=== PATIENT | male | born 1940 | race Caucasian/White ===

== ENCOUNTER → 2017-11-24 12:28 | Outpatient (CLI) | payer MEDICARE, BC, SELFPAY ==
--- NOTE | 2017-11-24 12:39 | RAD_ITS ---
STUDY: X-RAY CHEST REASON FOR EXAM: Male, 77 years old. Rales in the left lung base, dyspnea. History of CHF. TECHNIQUE: PA and lateral chest COMPARISON: 08/22/2015 FINDINGS: Left pectoral pacer/AICD device with 4 wire leads, stable. Median sternotomy and CABG. Epicardial pacer wires. Hyperlucent pulmonary features consistent with underlying COPD. No acute superimposed edema or focal infiltrate. No effusion or pneumothorax. Mild cardiomegaly. Normal mediastinal silhouette, nabil and pleural margins. No acute osseous or upper abdominal process. RAD/Chest PA and Lateral IMPRESSION: There is no evidence of acute CHF or acute pneumonia. COPD/emphysema. Chronic cardiac disease. Electronically Signed: Colby Barboza, at 13:26 EDT Tel , Service support ,
== END ==
PROVIDERS: Family Provider Family Medicine; PCP Family Medicine; Visit Provider Internal Medicine Pulmonary Disease
DX: J43.9 Emphysema, unspecified (principal); R09.89 Other specified symptoms and signs involving the circulatory and respiratory systems
CPT/HCPCS: 71046

== ENCOUNTER 2020-03-30 06:02 | Day surgery (SDC) | payer MEDICARE, BC, SELFPAY ==
[2019-02-04 13:37] VITALS: BMI 31.9
[2020-03-27 09:34] LABS: Mean Corp Hgb Conc 31.6 g/dL (32-36); Mean Corpuscular Hgb 29.4 pg (27.0-32.0); Mean Corpuscular Volume 93.1 fL (80-94); Platelet Count 220 K/mm3 (150-450); RBC Distribution Width CV 14.1 % (11.6-14.6); RBC Distribution Width SD 47.7 fl (35.1-43.9); Red Blood Count 4.08 M/mm3 (4.6-6.2); White Blood Count 7.3 K/mm3 (4.4-11.0)
[2020-03-27 09:49] LABS: Partial Thromboplast Time 36.8 Seconds (24.1-36.2)
[2020-03-27 09:53] LABS: Hemoglobin A1c 6.3 % (3.8-5.6)
[2020-03-27 10:12] LABS: AST(SGOT) 24 U/L (15-37); Alanine Aminotransfer ALT/SGPT 33 U/L (16-61); Albumin, Serum 3.6 g/dL (3.2-5.0); Alkaline Phosphatase 69 U/L (45-117); Anion Gap 2 (5-15); BUN 26 mg/dL (7-18); BUN/Creat Ratio 21.7 RATIO (10-20); Bilirubin, Direct 0.08 mg/dL (0.00-0.30); Calcium,Total 8.8 mg/dL (8.5-10.1); Chloride 107 mmol/L (98-107); EST Glomerular Filtration Rate 62 mL/min (>60); Est Glom Filt Rate - Afr Amer 75 mL/min (>60); Globulin 3.1 g/dL (2.2-4.2); Glucose 144 mg/dL (74-106); Potassium 3.7 mmol/L (3.5-5.1); Protein, Total 6.7 g/dL (6.4-8.2); Sodium Level 140 mmol/L (136-145); Thyroid Stim Hormone (TSH) 5.37 uIU/mL (0.358-3.74)
--- NOTE | 2020-03-27 11:35 | EKG12_ITS ---
Test Reason : PREOP Blood Pressure : / mmHG Vent. Rate : 070 BPM Atrial Rate : 070 BPM P-R Int : 096 ms QRS Dur : 160 ms QT Int : 476 ms P-R-T Axes : 071 -78 101 degrees QTc Int : 514 ms Atrial-sensed ventricular-paced rhythm Abnormal ECG When compared with ECG of 30-AUG-2015 05:49, Premature supraventricular complexes are no longer Present Confirmed by CLIFF FROST, DIO ([id number]), map editor MURPHY HELTON ([id number]) on 03/30/2020 11:28:57 AM Referred By: Marlon Todd Confirmed By:DIO CORONADO MD
[2020-03-30 06:26] LABS: Prothrombin Time Fingerstick 20.2 SEC (11.9-14.4)
[2020-03-30 06:55] LABS: Bedside Glucose 116 mg/dL (70-110)
[2020-03-30 07:07] VITALS: BP 115/55; PULSE 58; RESP 16; TEMP 36.6; O2SAT 95; BMI 31.8
[2020-03-30 07:13] LABS: International Normalized Ratio 1.7; Prothrombin Time (Protime)PT. 19.3 SECONDS (11.7-14.9)
[2020-03-30] MEDS: Lactated Ringers 1,000 ML 100 ML IV (07:18)
--- NOTE | 2020-03-30 08:19 | PCM.HP.STD ---
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 History of Present Illness Date of Admission: 03/30/20 Chief Complaint: Bladder cancer recurrence The patient is a 80 year old male who on routine cystoscopy was found to have a recurrence of bladder cancer in the trigone area today presents for transurethral resection of this tumor and cauterization of the base Past Medical History Past Medical History (Chronic Problems): Chronic Problems (Last Reviewed 02/04/19 @ 13:36 by Teresa Myles) Ischemic cardiomyopathy (Chronic) EF 20% Medical History: Medical History (Last Reviewed 02/04/19 @ 13:36 by Teresa Myles) Screening for intestinal cancer (Acute) Z12.10 Hx of bladder cancer (Acute) Z85.51 Nausea (Acute) R11.0 Sleep apnea (Acute) G47.30 SOB (shortness of breath) (Acute) R06.02 Heart attack (Acute) I21.9 Heart disease (Acute) I51.9 Thyroid disease (Acute) E07.9 Fatigue (Acute) R53.83 Ventricular tachycardia (Acute) I47.2 Hyperlipemia (Acute) E78.5 Osteoarthritis of left knee (Acute) M17.9 TKA LEFT KNEE CAD (coronary artery disease) (Acute) I25.10 Type 2 diabetes mellitus (Acute) E11.9 Ischemic cardiomyopathy (Chronic) I25.5 EF 20% Allergies celecoxib [From Celebrex] Allergy (Verified 03/30/20 07:04) Hives Sulfa (Sulfonamide Antibiotics) Allergy (Verified 03/30/20 07:04) Hives Home Medications: Ambulatory Orders Medication Instructions Recorded Amlodipine [Norvasc] 10 mg PO DAILY 03/31/14 Aspirin [Aspirin, Baby] 81 mg PO DAILY@0800 03/31/14 metFORMIN HCl [Glucophage] 1,000 mg PO BIDCM 03/31/14 furosemide 40 mg tablet 20 mg PO DAILY tab 02/04/19 levothyroxine 112 mcg tablet 112 mcg PO DAILY 02/04/19 Amiodarone HCl [Cordarone] 200 mg PO 1700 03/22/20 Areds 2 1 tab PO BID 03/22/20 Atorvastatin Calcium [Lipitor] 40 mg PO QHS 11/19/20 Finasteride 5 mg PO DAILY 03/22/20 Losartan Potassium [Cozaar] 100 mg PO 1700 03/22/20 Metoprolol Tartrate [Lopressor 50 mg PO DAILY 03/22/20 (beta donal)] Warfarin [Coumadin (PBKC)] 2.5 mg PO TUTHSA 03/22/20 Warfarin [Coumadin] 5 mg PO SUMOWEFR 03/22/20 Surgical History: Surgical History (Last Reviewed 02/04/19 @ 13:36 by Teresa Myles) Hx of colonoscopy (Acute) Z98.890 History of total left knee replacement (TKR) (Acute) Z96.652 Hx of mitral valve replacement (Acute) Z95.2 Hx of prostate biopsy (Acute) Z98.890 History of bladder surgery (Acute) Z98.890 History of bilateral carpal tunnel release (Acute) Z98.890 History of open heart surgery (Acute) Z98.890 Hx of cardiac cath (Acute) Z98.890 multiple History of cardiac defibrillator placement (Acute) Z95.810 Hx of cardiac pacemaker (Acute) Z95.0 X2 Surgical History: no surgical history Smoking Status: Former smoker Review of Systems Constitutional: Denies: Chills, Fever, Weight Change HEENT: Denies: Head Aches, Sinus Congestion, Sinus Drainage Cardiovascular: Denies: Chest Pain, Palpitations Respiratory: Denies: Cough, Shortness of breath at rest, Sputum production Gastrointestinal: Denies: Abdominal Pain, Nausea, Vomiting Genitourinary: Denies: Dysuria Musculoskeletal: Denies: Joint Pain, Joint Tenderness Skin: Denies: Rash, Wounds Neurological: Denies: Numbness, Tingling, Focal weakness Psychiatric: Denies: Anxiety, Depression, Homicidal Ideations, Suicidal Ideations Hematologic/ Lymphatic: Denies: Easy Bruising, Easy Bleeding VTE Information - Inpt Only VTE Present on Admission: No - Physical Exam Vitals/I&O's: Vital Signs Temp Pulse Resp BP Pulse Ox 97.9 F 58 L 16 115/55 L 95 03/30/20 07:07 03/30/20 07:07 03/30/20 07:07 03/30/20 07:07 03/30/20 07:07 Oxygen Delivery Method Room Air Weight: 89.6 kg Body Mass Index (BMI) 31.8 Finger Stick Blood Glucose 109 General: Alert, Oriented x3, Cooperative HEENT: Atraumatic, PERRLA, EOMI, Normocephalic Neck: Supple, No JVD, Negative Carotid Bruits Lungs: Clear to auscultation, Normal air movement Cardiovascular: Regular rate, No murmurs Abdomen: Bowel Sounds Present, Soft, Non Tender Extremities: No edema, Capillary Refill Less than 3 Seconds Skin: No rashes, No breakdown Musculoskeletal: No Tenderness to Palpation of Joints or Extremities Neurological: Cranial nerves II-XII grossly intact Psych/Mental Status: Normal Affect, Appropriate Microbiology Past 72 Hours 03/27/20 09:22 Interface Orders SARS-CoV-2 Antigen (Rapid) - Final Laboratory Results 03/30/20 06:22: POC PT 20.2 H, INR 1.70 03/30/20 06:49: POC Glucose 116 H 03/30/20 06:54: PT 19.3 H, INR 1.7 Current Medications Cefazolin Sodium 2 gm/ Sodium (Chloride) 110 mls @ 150 mls/hr IV PREOP ONE Stop: 03/30/20 09:08 Mitomycin 40 mg/ Sodium (Chloride 40 ml/ N/A) 40 mls @ 2,400 mls/hr INSTILLAT X1 ONE Stop: 03/30/20 08:26 Lactated Ringer's () 1,000 mls @ 100 mls/hr IV .Q10H JERSON Last Admin: 03/30/20 07:18 Dose: 100 mls/hr Documented by: Assessment/Plan All Active Problems (Last Reviewed 02/04/19 @ 13:36 by Teresa Myles) Bladder cancer (Acute) Screening for intestinal cancer (Acute) Hx of colonoscopy (Acute) History of total left knee replacement (TKR) (Acute) Hx of mitral valve replacement (Acute) Hx of prostate biopsy (Acute) History of bladder surgery (Acute) Hx of bladder cancer (Acute) History of bilateral carpal tunnel release (Acute) History of open heart surgery (Acute) Nausea (Acute) Hx of cardiac cath (Acute) Sleep apnea (Acute) SOB (shortness of breath) (Acute) Heart attack (Acute) Heart disease (Acute) History of cardiac defibrillator placement (Acute) Hx of cardiac pacemaker (Acute) Thyroid disease (Acute) Fatigue (Acute) Ventricular tachycardia (Acute) Hyperlipemia (Acute) Osteoarthritis of left knee (Acute) CAD (coronary artery disease) (Acute) Type 2 diabetes mellitus (Acute) Plan to proceed with transurethral resection of bladder tumor.
[2020-03-30] MEDS: Cefazolin 2 GM in 0.9% Normal Saline 100 ML IV (08:22)
--- NOTE | 2020-03-30 08:23 | DCINST_ITS ---
Discharge Diet: Light diet - advance as tolerated Discharge Activity: Return to Normal Activity Instructions: Treating Bladder Cancer: TUR (Transurethral Resection) Allergies/Adverse Reactions: Allergies celecoxib [From Celebrex] Allergy (Verified 03/30/20 07:04) Hives Sulfa (Sulfonamide Antibiotics) Allergy (Verified 03/30/20 07:04) Hives Medications to take at Discharge Amlodipine [Norvasc] 10 mg PO DAILY 03/31/14 Aspirin [Aspirin, Baby] 81 mg PO DAILY@0800 03/31/14 metFORMIN HCl [Glucophage] 1,000 mg PO BIDCM 03/31/14 furosemide 40 mg tablet 20 mg PO DAILY tab 02/04/19 levothyroxine 112 mcg tablet 112 mcg PO DAILY 02/04/19 Amiodarone HCl [Cordarone] 200 mg PO 1700 03/22/20 Areds 2 1 tab PO BID 03/22/20 Atorvastatin Calcium [Lipitor] 40 mg PO QHS 03/22/20 Finasteride 5 mg PO DAILY 03/22/20 Losartan Potassium [Cozaar] 100 mg PO 1700 03/22/20 Metoprolol Tartrate [Lopressor (beta donal)] 50 mg PO DAILY 03/22/20 Warfarin [Coumadin (PBKC)] 2.5 mg PO TUTHSA 03/22/20 Warfarin [Coumadin] 5 mg PO SUMOWEFR 03/22/20 Primary Care Physician: Jordan Monroy MD [Primary Care Provider] - Test Results: Test results from this visit will be discussed in further detail at your follow- up appointment, if applicable. Please Follow Up With: Marlon Todd MD When: in 2 weeks, please call to make an appointment.
--- NOTE | 2020-03-30 08:25 | BLB_PTH ---
PATIENT: JLUIS ROUSE LOC: [facility] [place] U#:[id number] AGE/SX: 80/M ROOM: RE03/30/[address]: Dr. Marlon Todd MD : 1940 BED: DIS: 03/30/2020 SPEC #: [id number] RECD: 03/30/20 11:14 STATUS: YAMILET REGretchen #: [id number] EMEKA: 03/30/20 08:[address]: Marlon Todd DEPT: SURGICAL PATHOLOGY RECD BY: Jessica Dang ENTERED: 03/30/20 11:41 SP TYPE: TURB OTHR DR: Dr. Jrodan Monroy MD Tissues: Urinary bladder, NOS Procedures: Surgery Specimen Level V HEADER OPERATION: Cysto, TUR bladder, Olymp[employer] PRE-OP DIAGNOSIS: Bladder cancer TISSUE SUBMITTED: Bladder tumor MICROSCOPIC DIAGNOSIS Bladder tumor, TUR: Papillary urothelial carcinoma. See cancer summary in the comment section. SJ:maciej 04/02/20 COMMENT BLADDER CANCER (TUR) SUMMARY Procedure: Transurethral resection of bladder (TURBT) Histologic type: Urothelial (transitional cell) carcinoma Associated epithelial lesions: None identified Histologic grade: 1-2/3 Tumor configuration: Papillary Muscularis propria invasion presence: Muscularis propria (detrusor muscle) is not present. Lymphvascular invasion: not identified. Tumor extension: noninvasive papillary carcinoma. Additional pathologic findings: Mild chronic inflammation. The above summary is in compliance with [employer] [place] [employer] (CAP) Cancer Protocols Checklist and [place] [employer] Committee on Cancer (AJCC), Staging Manual, 8th Ed. Please make reference to previous specimen ([id number]) bladder tumor, TUR and base of bladder tumor with diagnosis of papillary urothelial carcinoma. MICROSCOPIC DESCRIPTION Slides are reviewed. GROSS DESCRIPTION Received in fixative is one container labeled with the patient's name and designated bladder tumor. The specimen consists of two irregular fragments of odell soft tissue that in aggregate measure 0.4 x 0.2 x 0.1 cm. The specimen is totally submitted in one cassette. / SJ:maciej 03/30/20 TC:0 CPT: 43318
[2020-03-30 08:55] VITALS: BP 115/55; BP 116/55; PULSE 61; RESP 14; TEMP 36.6; O2SAT 92
[2020-03-30 09:00] VITALS: BP 107/55; BP 115/55; PULSE 60; RESP 14; O2SAT 93
[2020-03-30 09:15] VITALS: BP 115/55; BP 118/60; PULSE 60; RESP 16; O2SAT 95
--- NOTE | 2020-03-30 09:26 | PCM.OPRPT ---
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 The penis and testicles were prepped and draped usual sterile fashion. I went into the bladder with a 24 Hungarian noncontinuous flow resectoscope and in the trigone of the bladder the 2 cm tumor this was resected and then cauterized both the left and right ureter orifice were uninvolved. I then drained the bladder put a catheter in and put 40 mg of mitomycin-C into the bladder. Type of Anesthesia:: General - Admit VTE Documentation VTE Present on Admission: No VTE Mechan Device Prophylaxis: SCD's
[2020-03-30 09:28] VITALS: BP 115/55; BP 126/52; PULSE 60; RESP 16; TEMP 36.3; O2SAT 98
[2020-03-30 09:40] LABS: Bedside Glucose 116 mg/dL (70-110)
[2020-03-30 10:06] VITALS: BP 115/55
== END 2020-03-30 10:15 | disposition home or self-care (01) ==
LOC: SDC 06:03 → AC 06:04
PROVIDERS: Anesthesiology; PCP Family Medicine; Referring Provider Urology; Visit Provider Urology
PROC: 0TBB8ZZ Excision of Bladder, Via Natural or Artificial Opening Endoscopic (ICD-10-PCS; CPT 52234; principal; 2020-03-30 08:15)
DX: C67.0 Malignant neoplasm of trigone of bladder (principal); E07.9 Disorder of thyroid, unspecified; E11.9 Type 2 diabetes mellitus without complications; E78.5 Hyperlipidemia, unspecified; I25.10 Atherosclerotic heart disease of native coronary artery without angina pectoris; I50.9 Heart failure, unspecified; G47.30 Sleep apnea, unspecified; I25.2 Old myocardial infarction; I25.5 Ischemic cardiomyopathy; Z79.01 Long term (current) use of anticoagulants; Z79.82 Long term (current) use of aspirin; Z79.84 Long term (current) use of oral hypoglycemic drugs; Z85.51 Personal history of malignant neoplasm of bladder; Z87.891 Personal history of nicotine dependence; Z95.0 Presence of cardiac pacemaker; Z95.2 Presence of prosthetic heart valve; Z96.652 Presence of left artificial knee joint; Z20.828 Contact with and (suspected) exposure to other viral communicable diseases; Z79.899 Other long term (current) drug therapy
CPT/HCPCS: 52234; 36415; 36416; 80048; 80076; 82962; 83036; 84443; 85027; 85610; 85730; 87426; 88307; 93005; C9803; J7120; J2405; J3490; J9280

== ENCOUNTER → 2020-11-09 08:06 | Outpatient (CLI) | payer MEDICARE, BC, SELFPAY ==
--- NOTE | 2020-11-09 08:14 | CT_ITS ---
STUDY: CT CHEST WITHOUT CONTRAST REASON FOR EXAM: Male, 80 years old. DYSPNEA / HX COVID 19 RADIATION DOSAGE (If Supplied By Facility): CTDIvol = ( 16.75 ) mGy, DLP = ( 604.43 ) mGycm TECHNIQUE: Transaxial imaging was performed without the administration of intravenous contrast material. Multiplanar coronal and sagittal images were reformatted. Individualized dose optimization techniques were used for this CT. COMPARISON: None. FINDINGS: There is a 1.5 mm noncalcified nodule in the posterior superior aspect of the right upper lobe. Minimal increased linear markings in the lingular segment of the left upper lobe as well as the anterior aspect of the right middle lobe suggestive of scarring. Mild degree of scarring and mild bronchiectasis at the lung bases. There is no demonstrated pleural abnormality. Sternal cerclage wires and vascular clips are present from a prior sternotomy and coronary artery bypass graft procedure (CABG). A left-sided dual-chamber pacemaker is seen. There are multiple small lymph nodes within the mediastinum, which are normal in size and morphology most compatible with reactive lymph hyperplasia. Normal hilar regions. Normal unenhanced pulmonary arteries. Normal aorta arch and descending thoracic aorta. There is demineralization of the thoracic spine. There is no demonstrated abnormality of the visualized upper abdomen. CT/Chest without Contrast IMPRESSION: 1.5 mm noncalcified nodule in the posterior superior aspect of the right upper lobe. Findings suggest mild degree of scarring in the lingular segment of the left upper lobe as well as the right middle lobe and both lower lobes with mild bronchiectasis. Electronically Signed: Jose Manuel Gonzalez MD at 8:54 EDT , Service support ,
--- NOTE | 2020-11-09 08:23 | VDLE_ITS ---
Reason For Study: EDEMA/DYSPNEA RIGHT LEFT GSV is normal. GSV is absent due to harvest for CABG. CFV is compressible, spontaneous, phasic, CFV is compressible, spontaneous, phasic, competent and demonstrates normal competent, and demonstrates normal augmentation. augmentation. FV is compressible, spontaneous, phasic, FV is compressible, spontaneous, phasic, competent and demonstrates normal competent and demonstrates normal augmentation. augmentation. POP V is compressible, spontaneous, phasic, POP V is compressible, spontaneous, phasic, competent and demonstrates normal competent and demonstrates normal augmentation. augmentation. T/P Trunk is compressible. T/P Trunk is compressible. PTV is compressible. PTV is compressible. RT PerV is compressible. LT PerV is compressible. Procedure This is a venous duplex using B-mode, color flow and spectral Doppler. Exam performed in department. The exam was diagnostic. A preliminary report was called and/or faxed to Dr. Badillo @ 9:20 am @ [phone]. VL/Venous Duplex US - Royce Extrem Interpretation Summary Deep veins of the lower extremities are bilaterally patent and compressible seg mentally. There is no evidence of deep vein thrombosis on either side. Valvular competence appears in tact within the proximal deep venous systems bilaterally. The right great saphenous vein appear s patent and compressible segmentally. The left great saphenous vein is absent, having been previously harvested. Ordering Physician: Damian Badillo Referring Physician: Jordan Monroy Performed By: Sirisha Sinclair RVT, RDCS and Student
[2020-11-09 10:14] LABS: Erythrocyte Sedimentation Rate 17 mm/hr (0-20)
[2020-11-09 10:53] LABS: CRP < 2.90 mg/L (0.0-3.0)
[2020-11-09 10:54] LABS: BNP,B-Type NATRIURETIC PEPTIDE 343.7 pg/mL (0-100)
== END ==
PROVIDERS: PCP Family Medicine; Referring Provider Internal Medicine Pulmonary Disease; Visit Provider Internal Medicine Pulmonary Disease
DX: R09.89 Other specified symptoms and signs involving the circulatory and respiratory systems (principal); M79.89 Other specified soft tissue disorders; R06.00 Dyspnea, unspecified; Z86.16 Personal history of COVID-19
CPT/HCPCS: 36415; 71250; 83880; 85652; 86140; 93970

== ENCOUNTER → 2021-02-04 16:02 | Outpatient (CLI) | payer MEDICARE, BC, SELFPAY ==
--- NOTE | 2021-02-04 | CYSPIN_PTH ---
PATIENT: JLUIS ROUSE LOC: [facility] U#:[id number] AGE/SX: 85/M ROOM: RE02/04/[address]: Dr. Marlon Todd MD : 1940 BED: DIS: SPEC #: [id number] RECD: 02/05/21 09:54 STATUS: YAMILET WONGretchen #: [id number] EMEKA: 02/04/21 00:[address]: Marlon Todd DEPT: CYTOLOGY RECD BY: Dave Ford ENTERED: 02/05/21 09:55 SP TYPE: CYSPIN FL OTHR DR: Dr. Jordan Monroy MD Tissues: Urine Procedures: Pap Stain (control) Special Stain Group II Cytospin Fluid HEADER OPERATION: Not noted PRE-OP DIAGNOSIS: History of malignant neoplasm of bladder TISSUE SUBMITTED: Urine for cytology DIAGNOSIS CYTOLOGY Urine for cytology (cytospin): Negative for malignant cells. AM:maciej 02/06/2021 CYTOLOGY STUDY Slides are reviewed. CYTOLOGY GROSS Received is 25 ml of clear pale yellow fluid labeled with the patient's name and and designated per the requisition as urine. Submitted for cytology preparation. / maciej 02/05/2021 TC:5 CPT: 55994
[2021-02-04 16:20] LABS: Cytology, Body Fluid / CSF SEE PATHOLOGY REPORT
== END ==
PROVIDERS: PCP Family Medicine; Referring Provider Urology; Visit Provider Urology
DX: Z85.51 Personal history of malignant neoplasm of bladder (principal)
CPT/HCPCS: 88108; 88313

== ENCOUNTER → 2021-08-26 | Outpatient (CLI) | payer MEDICARE, BC, SELFPAY ==
--- NOTE | 2021-08-26 | CYSPIN_PTH ---
PATIENT: JLUIS ROUSE [facility]: [facility] U#:[id number] AGE/SX: 81/M ROOM: RE08/26/[address]: Dr. Marlon Todd MD : 1940 BED: DIS: 08/26/2021 SPEC #: [id number] RECD: 08/27/21 09:36 STATUS: YAMILET REGretchen #: [id number] EMEKA: 08/26/21 00:[address]: Marlon Todd DEPT: CYTOLOGY RECD BY: Dave Ford ENTERED: 08/27/21 09:36 SP TYPE: CYSPIN FL OTHR DR: Dr. Jordan Monroy MD Tissues: Urine Procedures: Pap Stain (control) Special Stain Group II Cytospin Fluid HEADER OPERATION: Not noted PRE-OP DIAGNOSIS: History of malignant neoplasm of bladder TISSUE SUBMITTED: Urine for cytology DIAGNOSIS CYTOLOGY Urine for cytology (cytospin): A few clusters of atypical urothelial cells noted. Acute inflammation See comment. FEI:maciej 08/27/2021 COMMENT Clinical correlation and appropriate follow up are necessary. Please make reference to previous specimen ([id number]) bladder tumor, TUR with diagnosis of ?papillary urothelial carcinoma.? CYTOLOGY STUDY Slides are reviewed. CYTOLOGY GROSS Received is 15 ml of yellow cloudy fluid labeled with the patient's name and and designated per the requisition as urine. Submitted for cytology preparation. / maciej 08/27/2021 TC:5 CPT: 75764
[2021-08-26 17:26] LABS: Cytology, Body Fluid / CSF SEE PATHOLOGY REPORT
== END | disposition home or self-care (01) ==
PROVIDERS: PCP Family Medicine; Referring Provider Urology; Visit Provider Urology
DX: Z85.51 Personal history of malignant neoplasm of bladder (principal)
CPT/HCPCS: 88108; 88313

== ENCOUNTER 2021-12-09 14:44 | Observation (INO) | payer MEDICARE, BC, SELFPAY ==
--- NOTE | 2021-11-19 12:15 | EKG12_ITS ---
Test Reason : PREOP Blood Pressure : / mmHG Vent. Rate : 062 BPM Atrial Rate : 227 BPM P-R Int : 000 ms QRS Dur : 138 ms QT Int : 456 ms P-R-T Axes : 000 253 120 degrees QTc Int : 462 ms Ventricular-paced rhythm Biventricular pacemaker detected Abnormal ECG Confirmed by PERLA FROST, LAZARO ([id number]), editor dictionary KEVIN REAL ([id number]) on 11/20/2021 9:51:14 AM Referred By: EVAN Confirmed By:LAZARO DUNCAN MD
[2021-11-19 12:59] LABS: Absolute Lymphocyte Count 1.25 X10^3/uL (0.83-4.51); Basophil# 0.02 X10^3/uL; Basophil% 0.2 % (0-1); Eosinophil# 0.25 X10^3/uL; Hemoglobin 10.6 g/dL (13.0-16.5); Lymphocyte # 1.25 X10^3/ul (0.83-4.51); Lymphocyte % 15.1 % (19-41); Mean Corp Hgb Conc 32.1 g/dL (32-36); Mean Corpuscular Hgb 28.5 pg (27.0-32.0); Mean Corpuscular Volume 88.7 fL (80-94); Monocyte# 0.77 X10^3/uL; Monocyte% 9.3 % (0-10); NRBC Flagged by Analyzer 0 % (0-5); Neutrophil # 5.97 X10^3/uL (2.7-7.7); Neutrophil % 71.9 % (47-70); Platelet Count 231 K/mm3 (150-450); RBC Distribution Width CV 14.9 % (11.6-14.6); RBC Distribution Width SD 48.5 fl (35.1-43.9); Red Blood Count 3.72 M/mm3 (4.6-6.2); White Blood Count 8.3 K/mm3 (4.4-11.0)
[2021-11-19 13:02] LABS: Partial Thromboplast Time 33.7 Seconds (24.1-36.2)
[2021-11-19 13:25] LABS: Albumin, Serum 3.5 g/dL (3.2-5.0); Anion Gap 6 (5-15); BUN 25 mg/dL (7-18); BUN/Creat Ratio 24.5 RATIO (10-20); Calcium,Total 9.1 mg/dL (8.5-10.1); Chloride 109 mmol/L (98-107); Creatinine, Serum 1.02 mg/dL (0.70-1.30); EST Glomerular Filtration Rate 75 mL/min (>60); Est Glom Filt Rate - Afr Amer 90 mL/min (>60); Glucose 116 mg/dL (74-106); Potassium 4.1 mmol/L (3.5-5.1); Sodium Level 142 mmol/L (136-145)
[2021-11-19 13:27] LABS: Hemoglobin A1c 6.5 % (3.8-5.6)
[2021-11-19 13:36] LABS: Magnesium 2.1 mg/dL (1.6-2.6); Thyroid Stim Hormone (TSH) 2.92 uIU/mL (0.358-3.74)
[2021-12-09] VITALS (18 sets, daily range): BP systolic 112–161; BP diastolic 46–66; PULSE 59–78; RESP 15–18; TEMP 36.2–36.7; O2SAT 92–100; BMI 30.9
[2021-12-09] MEDS: Lactated Ringers 1,000 ML 15 ML IV (08:15)
[2021-12-09] MEDS: Acetaminophen 500 MG Tablet 1000 MG PO ×3 (08:42→23:00)
[2021-12-09] MEDS: Gabapentin 600 MG Tablet PO (08:42)
[2021-12-09 10:01] LABS: Bedside Glucose 171 mg/dL (74-106)
[2021-12-09 10:02] LABS: International Normalized Ratio 1.1; Prothrombin Time (Protime)PT. 13.8 SECONDS (11.7-14.9)
[2021-12-09] MEDS: Cefazolin 2 GM in 0.9% Normal Saline 100 ML IV (10:06)
--- NOTE | 2021-12-09 10:15 | FEM_PTH ---
PATIENT: JLUIS ROUSE LOC: [facility] U#:[id number] AGE/SX: 81/M ROOM: IN313 RE12/09/[address]: Dr. Iker Renee DO : 1940 BED: 1 DIS: 12/10/2021 SPEC #: [id number] RECD: 12/09/21 12:57 STATUS: YAMILET CONWAY #: [id number] EMEKA: 12/09/21 10:[address]: Iker Renee DEPT: SURGICAL PATHOLOGY RECD BY: Jessica Dang ENTERED: 12/09/21 13:17 SP TYPE: FEM HEAD OTHR DR: Dr. Jordan Monroy MD Tissues: Femoral region, NOS Procedures: Decalcification bone/plaque Surgery Specimen Level IV HEADER OPERATION: ERAS, total hip replacement PRE-OP DIAGNOSIS: Unilateral primary osteoarthritis right hip TISSUE SUBMITTED: Femoral head MICROSCOPIC DIAGNOSIS Femoral head, total hip replacement/resection: Femoral head with degenerative osteoarthritic changes. FEI:maciej 12/12/2021 MICROSCOPIC DESCRIPTION Slides are reviewed. GROSS DESCRIPTION Received is one container labeled with the patient's name and designated femoral head. The specimen consists of a odell femoral head with portion of femoral neck. The femoral head measures 4.5 x 5 x 5 cm and the femoral neck measures 0.9 cm in length. The articular surface displays prominent osteophyte formation, eburnation and bone erosion. Also present in the specimen container are detached pieces of bone measuring in aggregate 3.5 x 2 x 0.5 cm. No soft tissue is identified. Departure Clerk sections are submitted in two cassettes after decalcification. / FEI:maciej 12/09/2021 TC:5 [facility]: [id number], [id number]
[2021-12-09] MEDS: Lactated Ringers 1,000 ML 125 ML IV ×2 (11:45→17:38)
--- NOTE | 2021-12-09 11:46 | OP.PCM_ITS ---
Report of Operation Date of Procedure: 12/09/21 Pre-Operative Diagnosis: OA Right hip Post-Operative Diagnosis: same Surgery/Procedure Performed:: Right THR Description of Surgical Findings:: Report of Operation Date of Procedure: 12/09/2021 Pre-Operative Diagnosis: OA [right ] hip Post-Operative Diagnosis: same Surgery/Procedure Performed: [Right ] THR instructor tap dancing: Sushil Ann PA-C Type of Anesthesia: general Anesthesiologist: Santy Tubbs M.D. Specimen's removed: bone Estimated Blood Loss (mL): 100 cc Implants: Charlotte Accolade II size 8, 132 degree neck femoral stem, 52 mm tritanium cup,+0 ceramic head, MDM liner Surgical Indications: Patient has severe end-stage osteoarthritic changes in the [right ] hip. They have failed conservative measures including activity modification, anti- inflammatories, use of assistive devices. This to the point where the pain affects their ability to enjoy life and complete activities of daily living without discomfort. Patient has elected to undergo the above procedure Procedure Description: The patient was greeted in the preoperative area the [ right ] hip was marked with surgical marker preoperative antibiotics administered. The patient was then taken to or suite in stable condition. Preoperative tranexamic acid was also utilized. Once the patient was placed in the supine position on the operating room table and once adequate anesthesia was obtained they were then placed in the lateral decubitus position with the surgical hip facing the field. All bony prominences were well-padded. A commercial hip position was utilized. The appropriate extremity was then prepped and draped in usual sterile fashion. Ioban was placed on the skin. Surgical timeout was performed and surgery was commenced. A standard posterior approach to the hip was then performed. Incision was planned and carried out with a #10 blade scalpel. Dissection was then carried length of the incision to the IT band which was split proximally and distally. A Charnley retractor was then placed for soft tissue retraction exposing the piriformis. A standard posterior capsulotomy was performed. Severe eburnation of bone was noted and periarticular osteophytes were identified consistent with severe end-stage osteoarthritis. A femoral neck osteotomy guide was used to fifi the proximal femur. A femoral osteotomy was then created approximately 1 fingerbreadth above the lesser trochanter. This was measured and placed on the back table. Once this was complete acetabular retractors were placed anteriorly and posteriorly. Labrum was then removed from the acetabulum exposing the entire cup of the acetabulum. Sequential reaming was then commenced and the acetabulum was medialized and sequentially widened in order to accommodate appropriate size cup. The acetabular cup was then impacted into position to the appropriate depth referencing approximately [ 45 ] anteversion and [45 ]of inclination. Excellent purchase was obtained. An appropriate size MDM liner was then placed. Attention was then turned to the femoral preparation. The hip was placed in the 90/90 position and a lateralizing box osteotome was utilized. Femoral starting awl was used followed by sequential broaching to the appropriate size. Excellent purchase was obtained with the stem no stem subsidence and excellent rotational stability was confirmed. A calcar reamer was then used in the trial head neck was placed on the broach. The hip was then located and taken through full range of motion flexion internal and external rotation as well as extension. Excellent stability was noted no impingement was identified of the components and leg lengths appear to be appropriate. The hip was at this point dislocated and the trial femoral components were removed. The final femoral stem was then implanted and impacted to the appropriate depth. Again excellent purchase was obtained no stem subsidence or rotational instability was noted. The hip was once again trialed and confirmation of leg length and stability was performed. Soft tissue tension also appeared to be appropriate. At this point the hip was redislocated and the trunnion was cleaned and dried meticulously in the appropriate size MDM femoral head was placed on the clean dry trunnion using a 12/14 Singleton taper. The hip was once again relocated and again taken through full range of motion. I did inject a cocktail of postoperative pain medication in the deep and superficial tissues. Copious irrigation was performed. Anatomic closure of the piriformis tendon was performed through drill holes in the greater trochanter. A #1 Vicryl 0 Vicryl was utilized in subcutaneous tissue and surgical zechariah were placed in the skin. A well-padded nonadherent dressing was applied. Patient was taken to PACU in stable condition. No complications were identified. Will follow standard postop protocol for total hip arthroplasty. My furniture removalist's assistant played a vital role in the procedure beginning with positioning, holding retraction of soft tissues, positioning the leg to optimize visualization during the procedure and assisting with wound closure. Post-op Plan: DVT ppx; ASA 81 mg BID, thigh high compression stockings Follow up: in office in 2 weeks for wound check PT: to start POD #0 at hospital, outpatient PT should be arranged. Preoperative antibiotic: Ancef 2 grams IV Iker Renee DO Surgeon: Iker Renee instructor tap dancing: Sushil Ann Type of Anesthesia: General Anesthesiologist: Santy Tubbs Specimen's removed: bone Estimated Blood Loss (mL): 100 cc Fluids Replaced: 1000 cc crystalloid Admit VTE Documentation VTE Present on Admission: No VTE Mechan Device Prophylaxis: SCD's and Thigh High SONA Hose VTE Pharm Prophylaxis ordered?: Yes
--- NOTE | 2021-12-09 12:40 | RAD_ITS ---
STUDY: X-RAY - PELVIS AND RIGHT HIP REASON FOR EXAM: Male, 81 years old. Post Op -- AP both hips on single aditya/lateral of op hip PACU TECHNIQUE: 2 views of the pelvis and hip. COMPARISON: None. FINDINGS: The patient is status post right hip replacement. There is good alignment. Postoperative soft tissue changes. 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 RAD/Hip Min 2 Views (Portable) IMPRESSION: Status post right total hip replacement. There is good alignment. Postoperative soft tissue changes. Electronically Signed: Jose Manuel Gonzalez MD at 13:33 EDT ,
[2021-12-09 12:50] LABS: Bedside Glucose 211 mg/dL (74-106)
[2021-12-09] MEDS: Losartan Potassium 100 MG Tablet PO (15:55)
[2021-12-09] MEDS: Cefazolin 1 GM/50 ML BAG IV (17:39)
[2021-12-09 18:51] LABS: Bedside Glucose 209 mg/dL (74-106)
[2021-12-09] MEDS: 0.9% Saline Lock 10 ML Syringe IV (23:00)
[2021-12-09] MEDS: metFORMIN (XR) 500 MG Tablet 1000 MG PO (23:00)
[2021-12-09] MEDS: Atorvastatin Calcium 40 MG Tablet PO (23:00)
[2021-12-09] MEDS: Enoxaparin 80 MG/0.8 ML Syringe SC (23:00)
[2021-12-09] MEDS: Senna/Docusate Sodium 1 Tablet 2 TABLET PO (23:00)
[2021-12-09 23:56] LABS: Bedside Glucose 353 mg/dL (74-106)
[2021-12-10] MEDS: Lactated Ringers 1,000 ML 125 ML IV (01:38)
[2021-12-10] MEDS: Cefazolin 1 GM/50 ML BAG IV (01:45)
[2021-12-10 02:00] VITALS: PULSE 60
[2021-12-10 02:30] VITALS: BP 149/57; PULSE 54; RESP 18; TEMP 35.8; O2SAT 98; BMI 30.9
[2021-12-10] MEDS: Acetaminophen 500 MG Tablet 1000 MG PO ×2 (05:41→13:39)
[2021-12-10] MEDS: Levothyroxine 112 MCG Tablet PO (05:41)
[2021-12-10 06:29] LABS: Hematocrit 26.1 % (40-54); Hemoglobin 8.2 g/dL (13.0-16.5); Mean Corp Hgb Conc 31.4 g/dL (32-36); Mean Corpuscular Hgb 29.1 pg (27.0-32.0); Mean Corpuscular Volume 92.6 fL (80-94); Mean Platelet Vol. 10.4 fl (6.2-12.0); Platelet Count 182 K/mm3 (150-450); RBC Distribution Width CV 14.4 % (11.6-14.6); RBC Distribution Width SD 49.1 fl (35.1-43.9); Red Blood Count 2.82 M/mm3 (4.6-6.2); White Blood Count 16.9 K/mm3 (4.4-11.0)
[2021-12-10 06:30] VITALS: BP 138/54; PULSE 63; RESP 16; TEMP 36.8; O2SAT 96; BMI 30.9
[2021-12-10 07:00] LABS: Anion Gap 6 (5-15); BUN 22 mg/dL (7-18); BUN/Creat Ratio 19.8 RATIO (10-20); Calcium,Total 8.4 mg/dL (8.5-10.1); Chloride 105 mmol/L (98-107); Creatinine, Serum 1.11 mg/dL (0.70-1.30); EST Glomerular Filtration Rate 68 mL/min (>60); Est Glom Filt Rate - Afr Amer 82 mL/min (>60); Glucose 260 mg/dL (74-106); Potassium 5.2 mmol/L (3.5-5.1); Sodium Level 135 mmol/L (136-145)
--- NOTE | 2021-12-10 08:05 | PCM.PN.ORT ---
Subjective Subjective Patient sitting at bedside. Patient's pain has been very well managed. Patient denies chest pain, shortness of breath, calf pain, nausea vomiting. Patient states she is ready to be discharged home and do outpatient therapy. Patient states that he is in a Coumadin clinic in [place]. He normally takes Coumadin and was bridged with Lovenox preoperatively. Patient states that he has the necessary medications to continue his bridging, until he becomes therapeutic on his Coumadin, and does home testing under the direction of his Coumadin therapy center. Objective Data Objective Data Vital Signs: Vital Signs Temp Pulse Resp BP Pulse Ox O2 Del Method O2 Flow Rate 98.2 F 63 16 138/54 H 96 Nasal Cannula 3 12/10/21 06:30 12/10/21 06:30 12/10/21 06:30 12/10/21 06:30 12/10/21 06:30 12/10/21 06:30 12/10/21 06:30 Oxygen Flow Rate (L/min) 3 Oxygen Delivery Method Nasal Cannula Weight: 86.9 kg Body Mass Index (BMI) 30.9 Intake & Output: Intake and Output for Last 24 Hours 12/08/21 12/09/21 12/10/21 23:59 23:59 23:59 Intake Total 3061.42 / 3857.25 1835.83 / 1835.83 Output Total 300 / 300 Balance 3061.42 / 3857.25 1535.83 / 1535.83 Lab / Micro Data Result Diagrams: 12/10/21 05:19 12/10/21 05:19 Labs: Laboratory Results - last 24 hr 12/09/21 08:10: Blood Type A POSITIVE, Antibody Screen NEGATIVE 12/09/21 08:10: PT 13.8, INR 1.1 12/09/21 08:23: POC Glucose 171 H 12/09/21 12:33: POC Glucose 211 H 12/09/21 17:35: POC Glucose 209 H 12/09/21 23:15: POC Glucose 353 H 12/10/21 05:19: WBC 16.9 H, RBC 2.82 L, Hgb 8.2 L, Hct 26.1 L, MCV 92.6, MCH 29.1, MCHC 31.4 L, RDW Std Deviation 49.1 H, RDW Coeff of Tobi 14.4, Plt Count 182, MPV 10.4 12/10/21 05:19: Sodium 135 L, Potassium 5.2 H, Chloride 105, Carbon Dioxide 24.0, Anion Gap 6, BUN 22 H, Creatinine 1.11, Estim Creat Clear Calc 48.70, Est GFR (MDRD) Af Amer 82, Est GFR (MDRD) Non-Af 68, BUN/Creatinine Ratio 19.8, Glucose 260 H, Calcium 8.4 L Micro: Microbiology 11/19/21 12:01 Swab (Method) Nasal Screen MRSA/MSSA - Final Radiography Diagnostic Testing: Radiology Impression Hip X-Ray 12/09/21 12:40 IMPRESSION: Status post right total hip replacement. There is good alignment. Postoperative soft tissue changes. Electronically Signed: Jose Manuel Gonzalez MD at 13:33 EDT , Physical Exam Narrative Exam I found patient sitting comfortably in a chair at bedside. Patient was in no respiratory distress and speaking in full sentences. Patient had full range of motion of the upper extremities with good muscle tone and strength. The dressing was intact there is a small blood spot to the mid body of the dressing but very minimal. The area was nonerythematous and nontender to palpation. Patient did have good motion of the hip postoperatively with mild discomfort. He has good flexion-extension of bilateral knees ankles and feet. No signs symptoms of DVT. Neurovascular is otherwise intact. Const alert and oriented x3 General Appearance: cooperative HEENT normocephalic Eyes PERRL Resp normal respiratory effort Effort and Inspection: able to speak in complete sentences Extremity normal capillary refill Skin no rashes or lesions noted Neuro CN's II-XII intact bilaterally Psych mental status grossly normal and affect normal Assessment & Plan Assessment/Plan (1) S/P total right hip arthroplasty: PLAN: 1. Continue all pain medications as prescribed 2. Restart Lovenox today. Patient will use Lovenox and aspirin to bridge until he is therapeutic with his Coumadin levels. Patient has all necessary medications, Coumadin, Lovenox, and aspirin at home. These were provided by the Coumadin clinic along with testing equipment 3. Encourage incentive spirometry 4. Full weightbearing as tolerated with walker 5. Patient can shower on 12/12/2021 6. Patient will begin outpatient therapy at [facility] on 12/11/2021 7. Follow-up as scheduled, see pink sheet
--- NOTE | 2021-12-10 08:10 | DCINST_ITS ---
Discharge Instructions Diet Discharge Diet: No restrictions Activity Discharge Activity: Return to Normal Activity, May Not Drive, May Shower and Use Walker May resume sexual activity in: No Restrictions Ice area for (Minutes): 30 Weight Bearing Status: Weight bearing as tolerated and Full weight bearing Keep extremity elevated above heart level: Operative Extremity Dressing / Incision Call your doctor if your incision/area has: Continuous Slow Oozing, Sudden Increased Bleeding, Increased Pain/ Swelling, Increased Redness, Foul Smelling Discharge and Swelling at the incision site Call your doctor if you observe: Fever of 101 or Higher Remove Dressing in: leave in place till F/U Follow Up Care Please Follow Up With: Sushil Ann PA-C When: As scheduled Test Results: Test results from this visit will be discussed in further detail at your follow- up appointment, if applicable. Discharge Plan Admission Admit Date/Time: 12/09/21 14:44 Primary Reason for Your Visit: Right total hip arthroplasty Attending Provider: Iker Renee Primary Care Provider: Jordan Monroy Discharge Orders/Prescriptions Prescriptions: New acetaminophen 500 mg Tablet 1,000 mg PO Q8 30 Days Qty: 180 0RF oxycodone 5 mg Tablet 5 - 10 mg PO Q4H PRN PRN (Reason: Pain Score 4-10) 7 Days Qty: 56 0RF Continued furosemide 40 mg tablet 20 mg PO DAILY PRN (Reason: Edema) Label Comments: may take extra dosage as directed levothyroxine [Synthroid] 112 mcg tablet 112 mcg PO DAILY amlodipine 10 MG tablet 10 mg PO DAILY aspirin 81 MG tablet,chewable 81 mg PO DAILY@0800 Label Comments: stop 5 days preop Areds 2 1 tab PO BID warfarin 2.5 MG tablet 2.5 mg PO MOWEFR Label Comments: LAST DOSE 12/03/21 finasteride 5 MG tablet 5 mg PO DAILY atorvastatin 20 MG tablet 40 mg PO QHS warfarin 5 MG tablet 5 mg PO SUTUTHSA Label Comments: LAST DOSE 12/03/21 metoprolol tartrate 25 MG tablet 50 mg PO DAILY losartan 100 MG tablet 100 mg PO 1700 albuterol sulfate 90 mcg/actuation HFA aerosol inhaler 2 puff INHALATION PRN PRN (Reason: Congestion) metformin 500 mg tablet extended release 24 hr 2 tab PO BID enoxaparin 80 mg/0.8 mL syringe 0.8 ml subcut BID Label Comments: inject subcutaneously every 12 hours as directed by prescriber Referrals / Follow Up: Jordan Monroy MD [Primary Care Provider] - Disposition Disposition (needs filled in before D/C Order can be placed): Home, Self Care
[2021-12-10 08:19] VITALS: PULSE 63
[2021-12-10] MEDS: Metoprolol Tartrate 50 MG Tablet PO (08:19)
[2021-12-10] MEDS: Finasteride 5 MG Tablet PO (08:19)
[2021-12-10] MEDS: metFORMIN (XR) 500 MG Tablet 1000 MG PO (08:19)
[2021-12-10] MEDS: amLODIPine 10 MG Tablet PO (08:20)
[2021-12-10] MEDS: Aspirin 81 MG TAB.CHEW PO (08:20)
[2021-12-10] MEDS: Enoxaparin 80 MG/0.8 ML Syringe SC (08:23)
[2021-12-10 09:26] VITALS: O2SAT 96
[2021-12-10 10:30] VITALS: BMI 30.9
--- NOTE | 2021-12-10 10:30 | CASEMGMT ---
RN DESTIN Face to Face with patient for initial transition planning/care coordination assessment. RN CM introduced self and role at [facility]. Patient sitting in chair, alert and oriented. Patient willing to participate in assessment and is able to answer all questions appropriately. Care providers, pharmacy, and demographics verified. Patient wishes to discharge home and is setup with outpatient therapy at [facility]. Patient states he has no further needs or concerns at this time. CM to follow for discharge planning needs that may arise. PCP: Eliana but will be changing to [facility] Specialists: Thelma, ortho; Ricky, vascular; Cali, screener and blender operator Preferred Pharmacy: [facility], [facility] retail at discharge. Insurance: [employer] Prescription Benefit: yes Living Will/HPOA: yes, Jumana Castro LNOK: , son Living Arrangements: Patient lives with in a 3 story home. Patient states he is independent at home and able to ambulate steps. Transportation: daughter, son, grandchildren DME/HHC: Patient states he has shower yohannes, BSC, rasied toilet, cane, walker, cpap, pulse ox, and home oxgyen at 3lpm at through [facility]. Patient has previously been to [facility] and has had [facility] in the past. Patient is scheduled to start outpatient therapy at [facility] on Thursday. Disposition Plan: Patient to discharge home with outpatient therapy, family support, and follow-up plans in place. Liz DAWKINS, RN, CM
[2021-12-10 11:46] LABS: Bedside Glucose 140 mg/dL (74-106)
[2021-12-10 12:30] VITALS: BP 133/58; PULSE 61; RESP 16; TEMP 36.8; O2SAT 95
[2021-12-10] MEDS: oxyCODONE 5 MG Tablet PO (13:41)
[2021-12-10 14:10] VITALS: BMI 30.9
--- NOTE | 2021-12-10 15:36 | PHA.DC.MC ---
Pharmacy Service has performed discharge medication reconciliation and counseling for this patient. 1. ACETAMINOPHEN 1000MG PO Q8 2. OXYCODONE 5-10MG PO Q4H PRN PAIN 4-10 The patient's discharge medication list was reviewed for discrepancies and discrepancies were resolved. Home Medications amlodipine 10 mg tablet 10 mg PO DAILY bp 03/31/14 aspirin 81 mg chewable tablet 81 mg PO DAILY@0800 heart 03/31/14 furosemide 40 mg tablet 20 mg PO DAILY PRN Edema 02/04/19 levothyroxine 112 mcg tablet (Synthroid) 112 mcg PO DAILY thyroid 02/04/19 Areds 2 1 tab PO BID mac degeneration 03/22/20 atorvastatin 20 mg tablet 40 mg PO QHS cholesterol 03/22/20 finasteride 5 mg tablet 5 mg PO DAILY prostate 03/22/20 losartan 100 mg tablet 100 mg PO 1700 heart 03/22/20 metoprolol tartrate 25 mg tablet 50 mg PO DAILY heart 03/22/20 warfarin 2.5 mg tablet 2.5 mg PO MOWEFR blood thinner 03/22/20 warfarin 5 mg tablet 5 mg PO SUTUTHSA blood thinner 03/22/20 albuterol sulfate 90 mcg/actuation aerosol inhaler 2 puff inhalation PRN PRN Congestion 11/15/21 metformin 500 mg tablet,extended release 24 hr 2 tab PO BID 11/15/21 enoxaparin 80 mg/0.8 mL subcutaneous syringe 0.8 ml subcut BID 12/09/21 acetaminophen 500 mg tablet 1,000 mg PO Q8 30 days #180 tabs 12/10/21 oxycodone 5 mg tablet 5 - 10 mg PO Q4H PRN PRN Pain Score 4-10 7 days #56 tabs 12/10/21 The patient was counseled on the following discharge medications and changes in medications for homegoing were reviewed. The Reason for Use, instructions for use, and potential side effects were reviewed for all new medications. The patient's questions regarding all of their medications were answered. The patient was able to verbally demonstrate an understanding of their discharge medications.
== END 2021-12-10 16:45 | disposition home or self-care (01) ==
LOC: SDC 15:03 → MS3 12-10 07:28
PROVIDERS: Anesthesiology; Admitting Provider Orthopaedic Surgery; PCP Family Medicine; Referring Provider Orthopaedic Surgery; Visit Provider Orthopaedic Surgery
PROC: 0SR90JZ Replacement of Right Hip Joint with Synthetic Substitute, Open Approach (ICD-10-PCS; CPT 27130; principal; 2021-12-09 09:50)
DX: M16.11 Unilateral primary osteoarthritis, right hip (principal); I50.9 Heart failure, unspecified; E11.9 Type 2 diabetes mellitus without complications; I25.10 Atherosclerotic heart disease of native coronary artery without angina pectoris; I25.2 Old myocardial infarction; Z79.899 Other long term (current) drug therapy; Z79.01 Long term (current) use of anticoagulants; Z79.82 Long term (current) use of aspirin; E78.00 Pure hypercholesterolemia, unspecified; Z86.16 Personal history of COVID-19; Z79.84 Long term (current) use of oral hypoglycemic drugs; Z95.810 Presence of automatic (implantable) cardiac defibrillator; I25.5 Ischemic cardiomyopathy; E03.9 Hypothyroidism, unspecified
CPT/HCPCS: 27130; 01214; 36415; 73502; 80048; 82040; 82962; 83036; 83735; 84443; 85025; 85027; 85610; 85730; 86850; 86900; 86901; 87081; 88305; 88307; 88311; 93005; 94762; 96361; 96365; 96366; 96372; 97110; 97116; 97162; 97166; 97530; 99218; 99251; C1776; J7120; A4216; G0378; G0463; J2405; J3475

== ENCOUNTER 2021-12-11 18:32 | Emergency (ER) | payer MEDICARE, BC, SELFPAY ==
[2021-12-11 18:32] VITALS: BP 134/56; PULSE 71; RESP 18; TEMP 37.1; O2SAT 94; BMI 34.9
--- NOTE | 2021-12-11 19:31 | EX.ED.DYSGE1 ---
HPI History of Present Illness Chief Complaint: Wound Informant: patient and family Narrative Narrative: Patient 2-day postop elective total hip arthroplasty by Dr. Renee. He went home yesterday. He is using a walker. Therapy is to start in 2 days. He is receiving Lovenox therapeutic injections twice a day with a valve history. was [place] and today noted moisture on his shorts and noted blood. He called EMS to bring him here. He denies any strenuous activities or any falls. Denies fever. [facility] Medical History Ambulates with cane Anemia Arthritis CAD (coronary artery disease) Cancer Cardiology follow-up encounter Chronic cough CPAP (continuous positive airway pressure) dependence Diabetes Easy bruising Excessive bleeding Fatigue Former smoker Heart attack Heart disease High cholesterol Hip replacement planned History of atrial fibrillation History of CHF (congestive heart failure) History of edema History of heart attack History of pain when walking History of stress test Hx of bladder cancer Hyperlipemia Ischemic cardiomyopathy Nausea On home oxygen therapy Osteoarthritis of left knee Screening for intestinal cancer Shortness of breath on exertion Sleep apnea Sleep apnea SOB (shortness of breath) Thyroid disease Thyroid disease Type 2 diabetes mellitus Ventricular tachycardia Wears dentures Wears glasses Home Medications amlodipine 10 mg tablet 10 mg PO DAILY bp 03/31/14 [History Last Taken 12/09/21] aspirin 81 mg chewable tablet 81 mg PO DAILY@0800 heart 03/31/14 [History Last Taken 12/06/21] furosemide 40 mg tablet 20 mg PO DAILY PRN Edema 02/04/19 [History Last Taken 12/08/21] levothyroxine 112 mcg tablet (Synthroid) 112 mcg PO DAILY thyroid 02/04/19 [History Last Taken 12/09/21] Areds 2 1 tab PO BID mac degeneration 03/22/20 [History Last Taken 12/08/21] atorvastatin 20 mg tablet 40 mg PO QHS cholesterol 03/22/20 [History Last Taken 12/08/21] finasteride 5 mg tablet 5 mg PO DAILY prostate 03/22/20 [History Last Taken 12/08/21] losartan 100 mg tablet 100 mg PO 1700 heart 03/22/20 [History Last Taken 12/08/21] metoprolol tartrate 25 mg tablet 50 mg PO DAILY heart 03/22/20 [History Last Taken 12/09/21] warfarin 2.5 mg tablet 2.5 mg PO MOWEFR blood thinner 03/22/20 [History Last Taken 12/04/21] warfarin 5 mg tablet 5 mg PO SUTUTHSA blood thinner 03/22/20 [History Last Taken 12/04/21] albuterol sulfate 90 mcg/actuation aerosol inhaler 2 puff inhalation PRN PRN Congestion 11/15/21 [History Last Taken Unknown] metformin 500 mg tablet,extended release 24 hr 2 tab PO BID 11/15/21 [History Last Taken 12/08/21] enoxaparin 80 mg/0.8 mL subcutaneous syringe 0.8 ml subcut BID 12/09/21 [History Last Taken 12/08/21] acetaminophen 500 mg tablet 1,000 mg PO Q8 30 days #180 tabs 12/10/21 [Rx Last Taken Unknown] oxycodone 5 mg tablet 5 - 10 mg PO Q4H PRN PRN Pain Score 4-10 7 days #56 tabs 12/10/21 [Rx Last Taken Unknown] ondansetron 4 mg disintegrating tablet 4 mg PO Q6H PRN nausea and vomiting #10 tabs 12/11/21 [Rx Last Taken Unknown] Allergy/AdvReac Type Severity Reaction Status Date / Time celecoxib [From Celebrex] Allergy Hives Verified 12/11/21 18:36 Sulfa (Sulfonamide Allergy Hives Verified 12/11/21 18:36 Antibiotics) Family History Mother Heart disease Lung cancer Myocardial infarction Surgical History History of bilateral carpal tunnel release History of bladder surgery History of cardiac defibrillator placement History of carotid endarterectomy History of implantable cardiac defibrillator (ICD) History of open heart surgery History of total left knee replacement (TKR) Hx of CABG Hx of cardiac cath Hx of cardiac pacemaker Hx of colonoscopy Hx of mitral valve replacement Hx of prostate biopsy Social History Smoking Status: Former smoker second hand exposure: No alcohol intake: never substance use type: does not use caffeine: Yes what type of physical activity do you participate in: none frequency: does not exercise ROS ROS ED Constitutional Constitutional ED: Denies chills, fever(s) or sweats Eyes Eyes: Denies change in vision ENT ENT ED: Denies dysphagia or sore throat Cardiovascular Cardiovascular: Denies chest pain, leg edema, palpitations or racing heartbeat Respiratory/Chest Respiratory/Chest: Denies cough, dyspnea or dyspnea on exertion Gastrointestinal Gastrointestinal: Denies abdominal pain, diarrhea, nausea or vomiting Genitourinary Genitourinary ED: Denies dysuria, hematuria or urinary frequency Musculoskeletal Musculoskeletal: Denies back pain, extremity pain or neck pain Integumentary Reports wounds and other Details: Bleeding from wound ; Denies rash Neurologic Neurologic: Denies headache(s), paresthesias or weakness EXAM Physical Exam Const Vital Signs: 12/11/21 18:32 12/11/21 21:02 12/11/21 22:05 Temperature 98.8 F Temperature Source Oral Pulse Rate 71 78 78 Respiratory Rate 18 16 18 Blood Pressure 134/56 H 129/63 H 147/56 H Blood Pressure Mean 82 85 Pulse Ox 94 98 94 Oxygen Delivery Method Room Air Positive well nourished and well developed General Appearance ED: well developed and NAD HEENT Reports moist mucous membranes normocephalic and atraumatic Eyes PERRL, EOMs intact bilaterally and conjunctivae normal General Eye ED: Yes normal appearance of both eyes Neck no lymphadenopathy and supple General: Negative for tenderness Chest Wall Chest: Negative for tenderness Resp normal respiratory effort and normal air movement Effort and Inspection: symmetric chest movement; Negative for respiratory distress Cardio regular rate, regular rhythm and no murmurs Peripheral Pulses: pulses 2+ throughout GI normal to inspection, nondistended, normoactive bowel sounds and non-tender Palpation: Negative for guarding or rebound tenderness present Back/Spine no CVA tenderness and no thoracic nor lumbar tenderness Extremity Extremity Narrative: Right lower extremity hip, Aquacel dressing soaked with blood, this was removed, zechariah are all intact, there were small clots in the superior aspect of the wound, there is no active bleeding. No surrounding erythema. General Extremety ED: Negative for edema or tenderness General Extremity: Negative for edema Neuro oriented x3 and no sensory deficits noted Sensorium / Orientation: awake and alert Skin no rashes or lesions noted and no wounds MDM MDM MDM Narrative Medical decision making narrative: Patient wound appears intact no active bleeding. He was monitored no rebleeding a new Aquacel dressing was placed. While in the ED, he became more anxious because himself to vomit he was given Zofran with improvement of symptoms. He has a follow-up with physical therapy across from Ortho's office in the same building in 2 days[address] I discussed with Dr. Raymundo who is on-call he will keep that appointment and wound can be evaluated if needed. Dressing to stay on for 5 days then removed open. Prescription for Zofran to use as needed. All questions were answered. Discharged home with family. Discharge Plan Triage Chief Complaint: Wound ED Provider: Duke Borden Dx/Rx/DC Orders Clinical Impression: Visit for wound check, S/P total right hip arthroplasty, Post-op bleeding, Nausea & vomiting Instructions: Wound Care Prescriptions: New ondansetron 4 mg tablet,disintegrating 4 mg PO Q6H PRN (Reason: nausea and vomiting) Qty: 10 0RF No Action furosemide 40 mg tablet 20 mg PO DAILY PRN (Reason: Edema) Label Comments: may take extra dosage as directed levothyroxine [Synthroid] 112 mcg tablet 112 mcg PO DAILY amlodipine 10 MG tablet 10 mg PO DAILY aspirin 81 MG tablet,chewable 81 mg PO DAILY@0800 Label Comments: stop 5 days preop Areds 2 1 tab PO BID warfarin 2.5 MG tablet 2.5 mg PO MOWEFR Label Comments: LAST DOSE 12/03/21 finasteride 5 MG tablet 5 mg PO DAILY atorvastatin 20 MG tablet 40 mg PO QHS warfarin 5 MG tablet 5 mg PO SUTUTHSA Label Comments: LAST DOSE 12/03/21 metoprolol tartrate 25 MG tablet 50 mg PO DAILY losartan 100 MG tablet 100 mg PO 1700 albuterol sulfate 90 mcg/actuation HFA aerosol inhaler 2 puff INHALATION PRN PRN (Reason: Congestion) metformin 500 mg tablet extended release 24 hr 2 tab PO BID enoxaparin 80 mg/0.8 mL syringe 0.8 ml subcut BID Label Comments: inject subcutaneously every 12 hours as directed by prescriber acetaminophen 500 mg Tablet 1,000 mg PO Q8 30 Days Qty: 180 0RF oxycodone 5 mg Tablet 5 - 10 mg PO Q4H PRN PRN (Reason: Pain Score 4-10) 7 Days Qty: 56 0RF Primary Care Provider: Jordan Monroy Referrals: Jordan Monroy MD [Primary Care Provider] - Iker Renee DO [Med Staff - Active Staff] - 2 Days Activity Restrictions/Additional Instructions: Dressing stays on for 5 days. Keep your therapy follow-up in [address] Renee's office. If any issues to Be addressed then. Discussed with Dr. Raymundo. Disposition Disposition: Home, Self Care Discharge Date/Time: 12/11/21 22:05
[2021-12-11] MEDS: Ondansetron ODT 4 MG Tablet PO (20:06)
[2021-12-11 21:02] VITALS: BP 129/63; PULSE 78; RESP 16; O2SAT 98
[2021-12-11] MEDS: oxyCODONE 5 MG Tablet PO (21:30)
[2021-12-11 22:05] VITALS: BP 147/56; PULSE 78; RESP 18; O2SAT 94
== END 2021-12-11 22:05 | disposition home or self-care (01) ==
PROVIDERS: Emergency Provider Emergency Medicine; PCP Family Medicine; Visit Provider Emergency Medicine
DX: Z48.00 Encounter for change or removal of nonsurgical wound dressing (principal); Z96.641 Presence of right artificial hip joint; M96.831 Postprocedural hemorrhage of a musculoskeletal structure following other procedure; R11.2 Nausea with vomiting, unspecified; I25.10 Atherosclerotic heart disease of native coronary artery without angina pectoris; G47.30 Sleep apnea, unspecified; Z95.1 Presence of aortocoronary bypass graft; Z95.0 Presence of cardiac pacemaker; Z87.891 Personal history of nicotine dependence
CPT/HCPCS: 99285

== ENCOUNTER 2021-12-13 16:56 | Inpatient (IN) | payer MEDICARE, BC, SELFPAY ==
[2021-12-13] VITALS (9 sets, daily range): BP systolic 123–176; BP diastolic 43–160; PULSE 60–85; RESP 15–25; TEMP 36.2–36.8; O2SAT 97–100; BMI 34.7; BMI 38.2
--- NOTE | 2021-12-13 17:03 | EKG12_ITS ---
Test Reason : AMS Blood Pressure : / mmHG Vent. Rate : 062 BPM Atrial Rate : 227 BPM P-R Int : 000 ms QRS Dur : 132 ms QT Int : 440 ms P-R-T Axes : 000 270 132 degrees QTc Int : 446 ms Ventricular-paced rhythm Abnormal ECG Confirmed by PERLA FROST, LAZARO ([id number]), electronic news gathering editor MURPHY HELTON ([id number]) on 12/16/2021 10:15:47 AM Referred By: Confirmed By:LAZARO DUNCAN MD
--- NOTE | 2021-12-13 17:03 | CT_ITS ---
STUDY: CT BRAIN WITHOUT CONTRAST REASON FOR EXAM: Male, 81 years old. confusion RADIATION DOSAGE (If Supplied By Facility): CTDIvol = ( 44.99 ) mGy, DLP = ( 1862.18 ) mGycm TECHNIQUE: Transaxial CT imaging of the brain was performed without administration of intravenous contrast material. Individualized dose optimization techniques were used for this CT. COMPARISON: No relevant priors. FINDINGS: Normal soft tissue structures. Normal calvarium. There is mild cerebral atrophy with widening of the extra-axial spaces and ventricular dilatation. There are areas of decreased attenuation within the white matter tracts of the supratentorial brain, consistent with microvascular disease changes. Normal basal ganglia and thalami. Normal brainstem. Normal cerebellum. There is no intracranial hemorrhage. There are no findings of an acute ischemic infarction. Normal visualized paranasal sinuses. CT/Brain/Head without Contrast IMPRESSION: Chronic involutional changes of the brain. Electronically Signed: Colby Vilchis MD at 17:32 EDT ,
[2021-12-13 17:25] LABS: Absolute Lymphocyte Count 1.48 X10^3/uL (0.83-4.51); Absolute Neutrophil Count 13.4 X10^3/uL (2.0-7.7); Basophil# 0.01 X10^3/uL; Basophil% 0.1 % (0-1); Eosinophil# 0.06 X10^3/uL; Eosinophils% 0.4 % (0-5); Hematocrit 19.9 % (40-54); Hemoglobin 6.2 g/dL (13.0-16.5); Lymphocyte # 1.48 X10^3/ul (0.83-4.51); Lymphocyte % 9.1 % (19-41); Mean Corp Hgb Conc 31.2 g/dL (32-36); Mean Corpuscular Hgb 29.1 pg (27.0-32.0); Mean Corpuscular Volume 93.4 fL (80-94); Mean Platelet Vol. 10.2 fl (6.2-12.0); Monocyte# 1.22 X10^3/uL; Monocyte% 7.5 % (0-10); NRBC Flagged by Analyzer 0.1 % (0-5); Neutrophil # 13.38 X10^3/uL (2.7-7.7); Neutrophil % 81.7 % (47-70); Platelet Count 271 K/mm3 (150-450); RBC Distribution Width CV 15.2 % (11.6-14.6); RBC Distribution Width SD 51.3 fl (35.1-43.9); Red Blood Count 2.13 M/mm3 (4.6-6.2); White Blood Count 16.4 K/mm3 (4.4-11.0)
--- NOTE | 2021-12-13 17:25 | RAD_ITS ---
STUDY: X-RAY CHEST REASON FOR EXAM: Male, 81 years old. Hypoxia TECHNIQUE: Single frontal view of the chest. COMPARISON: 11/24/2017 FINDINGS: There is stable perihilar fullness. There is no new focal consolidation. There are stable mildly prominent interstitial markings. Sternal cerclage wires and vascular clips are present from a prior sternotomy and coronary artery bypass graft procedure (CABG). There is cardiomegaly. There is a cardiac pacer device in place. Normal mediastinum and nabil. Normal visualized pulmonary arteries. Normal visualized aortic arch and descending thoracic aorta. Normal visualized thoracic spine. Normal visualized ribs, clavicles, and shoulders. There is no demonstrated abnormality of the visualized soft tissue structures of the upper abdomen. RAD/Chest 1 View (Portable) IMPRESSION: Cardiomegaly. Electronically Signed: Mar Andrade MD at 18:17 EDT ,
--- NOTE | 2021-12-13 17:50 | EDS_ITS ---
HPI History of Present Illness Chief Complaint: Alt LOC Informant: EMS Narrative Narrative: Very limited history. Initially we just know that the family called for the patient being very confused and combative. This is evidently not his history or typical for him. He recently had a hip done. He was seen a day or so ago for bleeding from the wound but that seemed to have stopped. I read that note to get that history. He is on Coumadin. It sounds like he was on Lovenox and may have transition to Coumadin. He also has pacemaker and defibrillator. I get no report of fevers. But I have very limited history at this time. I am not able to obtain a review of systems due to patient confusion. [facility] Medical History (Updated 12/13/21 @ 19:[address] Dave Hathaway MD) Ambulates with cane Anemia Arthritis CAD (coronary artery disease) Cancer Cardiology follow-up encounter Chest pain Chronic cough Congestive heart failure (CHF) CPAP (continuous positive airway pressure) dependence Diabetes Easy bruising Excessive bleeding Fatigue Former smoker Heart attack Heart disease High cholesterol Hip replacement planned History of atrial fibrillation History of CHF (congestive heart failure) History of edema History of heart attack History of pain when walking History of stress test Hx of bladder cancer Hyperlipemia ICD (implantable cardioverter-defibrillator) in place Ischemic cardiomyopathy Nausea On home oxygen therapy Osteoarthritis of left knee Pacemaker Screening for intestinal cancer Shortness of breath on exertion Sleep apnea Sleep apnea SOB (shortness of breath) Thyroid disease Thyroid disease Type 2 diabetes mellitus Ventricular tachycardia Wears dentures Wears glasses Home Medications amlodipine 10 mg tablet 10 mg PO DAILY bp 03/31/14 [History Last Taken 12/09/21] aspirin 81 mg chewable tablet 81 mg PO DAILY@0800 heart 03/31/14 [History Last Taken 12/06/21] levothyroxine 112 mcg tablet (Synthroid) 112 mcg PO DAILY thyroid 02/04/19 [History Last Taken 12/09/21] finasteride 5 mg tablet 5 mg PO DAILY prostate 03/22/20 [History Last Taken 12/08/21] losartan 100 mg tablet 100 mg PO 1700 heart 03/22/20 [History Last Taken 12/08/21] metoprolol tartrate 25 mg tablet 25 mg PO DAILY heart 03/22/20 [History Last Taken 12/09/21] warfarin 2.5 mg tablet 2.5 mg PO THSA blood thinner 03/22/20 [History Last Taken 12/04/21] warfarin 5 mg tablet 5 mg PO DAILY blood thinner 03/22/20 [History Last Taken 12/04/21] albuterol sulfate 90 mcg/actuation aerosol inhaler 2 puff inhalation PRN PRN Congestion 11/15/21 [History Last Taken Unknown] metformin 500 mg tablet,extended release 24 hr 2 tab PO BID 11/15/21 [History Last Taken 12/08/21] enoxaparin 80 mg/0.8 mL subcutaneous syringe 0.8 ml subcut BID 12/09/21 [History Last Taken 12/08/21] acetaminophen 500 mg tablet 1,000 mg PO Q8 30 days #180 tabs 12/10/21 [Rx Last Taken 12/13/21] oxycodone 5 mg tablet 5 - 10 mg PO Q4H PRN PRN Pain Score 4-10 7 days #56 tabs 12/10/21 [Rx Last Taken Unknown] ondansetron 4 mg disintegrating tablet 4 mg PO Q6H PRN nausea and vomiting #10 tabs 12/11/21 [Rx Last Taken Unknown] amiodarone 200 mg tablet 200 mg PO DAILY HEART 12/13/21 [History Last Taken Unknown] atorvastatin 40 mg tablet 40 mg PO DAILY CHOLESTEROL 12/13/21 [History Last Taken Unknown] dutasteride 0.5 mg capsule 0.5 mg PO DAILY PROSTATE 12/13/21 [History Last Taken Unknown] furosemide 20 mg tablet 20 mg PO DAILY WT GAIN 12/13/21 [History Last Taken Unknown] vit C-vit Y-nodeps-zvnyzfiv capsule 1 cap PO DAILY EYE VITAMIN 12/13/21 [History Last Taken Unknown] Allergy/AdvReac Type Severity Reaction Status Date / Time celecoxib [From Celebrex] Allergy Hives Verified 12/13/21 17:00 Sulfa (Sulfonamide Allergy Hives Verified 12/13/21 17:00 Antibiotics) Family History Mother Heart disease Lung cancer Myocardial infarction Surgical History History of bilateral carpal tunnel release History of bladder surgery History of cardiac defibrillator placement History of carotid endarterectomy History of implantable cardiac defibrillator (ICD) History of open heart surgery History of total left knee replacement (TKR) Hx of CABG Hx of cardiac cath Hx of cardiac pacemaker Hx of colonoscopy Hx of mitral valve replacement Hx of prostate biopsy Social History Smoking Status: Former smoker second hand exposure: No alcohol intake: never substance use type: does not use caffeine: Yes what type of physical activity do you participate in: none frequency: does not exercise ROS ROS ED ROS Narrative Unable to obtain due to patient confusion. He does not answer direct questions. Review of Systems ROS Unobtainable: due to mental condition EXAM Physical Exam Const Vital Signs: 12/13/21 16:57 12/13/21 18:15 12/13/21 19:15 Temperature 97.2 F L 98 F Temperature Source Temporal Temporal Pulse Rate 85 73 60 Respiratory Rate 25 H 22 H 19 H Blood Pressure 176/160 H 125/80 H 139/43 H Blood Pressure Mean 165 95 75 Pulse Ox 97 99 99 Oxygen Delivery Method Room Air Nasal Cannula Room Air Positive well nourished and well developed Constitutional Narrative: Patient is restrained as he is somewhat combative. He is trying to get out of bed. He states he wants to get out of his arm restraints but he tries to get out of bed and could hurt himself General Appearance ED: well developed HEENT Reports moist mucous membranes HEENT Narrative: I see no sign of head or facial trauma. No sign of injury noted. There is no facial asymmetry or weakness. Eyes Eyes Narrative: Pupils are still small at about 1 and half to 2 mm but they are equal. I see no limitation of range of motion of eyes. Neck General: Negative for tenderness Resp normal respiratory effort and clear to auscultation bilaterally Cardio regular rate and regular rhythm Rate: other Other Details: Patient does appear to be paced. GI normal to inspection, nondistended, normoactive bowel sounds and non-tender Back/Spine no CVA tenderness Extremity Extremity Narrative: Patient has a fresh dressing on his right hip area. It is clean dry and intact. Neuro Neuro Narrative: Patient is alert. He moves all extremities. There is no sign of focal w eakness. He can look left and right. I see no facial droop. No dysarthria. He does seem very confused and moderately combative. Sensorium / Orientation: alert Psych Negative for mental status grossly normal Attitude: agitated Mood & Affect: anxious Skin no rashes or lesions noted Skin Narrative: Healing wound right hip area. MDM MDM MDM Narrative Medical decision making narrative: Further information was obtained through the family. Evidently this patient was assisted taking a shower from about 1230 till 2. He was very tired. He laid down it to. They woke him up at about 235 and he seemed very confused. EMS evidently found him with pinpoint pupils and sats at about 80%. He did get bett er with Narcan but not completely resolved. But his saturations have been much better. I do not have details on what he is on for pain but since he just had surgery I am suspecting he is on some narcotics. 17: 40 Patient's recheck. He is more awake and alert. But he still is very confused. Saturations are normal. Blood pressure heart rate and respiratory rate are all normal at this time. I was able to talk to and family directly in the room. This patient evidently has been a little bit just weak and worn out all day. But he has been a bit weak since surgery. He was not confused earlier today. He was exhausted after his bath/shower from about 12 30-2. He laid down actually from about 2-3 30. When he was awoken, he was confused a little bit combative. That is when EMS found him to be hypoxic and gave him a dose of Narcan. However, he had had one 5 mg Percocet prior to the nap. He had told the family he took 2 Tylenol this morning but the does not think he does. It certainly possible he could have taken Percocet but that would have been hours earlier. Patient has no history of dementia or confusion like this. This is not at all typical for him. His blood work shows mild elevation of white count but no sign or source of infection is seen. He is anemic at 6 2. This is likely from the wound bleeding that he had but now seems to have stopped. However, with elevated troponin lactate heart disease and anemia we will transfuse him as I think this is better benefit than risk. His INR is now therapeutic. His last Lovenox shot was last night per family. I have not given him some fluids even though he has some signs of dehydration because we are giving blood. The combination of blood and fluid with his history of CHF could worsen him. It is certainly possible this patient could have had a small stroke. However, he is fully anticoagulated and I do not think his symptoms justify the risk of tPA especially postoperative bleeding wound. He may have had a reaction or problem with Percocet. He may have had a hypoxic episode. He does need to come in the hospital. I discussed case with hospitalist. Lab Data Labs: Laboratory Results - last 24 hr 12/13/21 12/13/21 12/13/21 17:10 17:10 17:10 WBC 16.4 H RBC 2.13 L Hgb 6.2 L Hct 19.9 L MCV 93.4 MCH 29.1 MCHC 31.2 L RDW Std Deviation 51.3 H RDW Coeff of Tobi 15.2 H Plt Count 271 MPV 10.2 Immature Gran % (Auto) 1.200 H Neut % (Auto) 81.7 H Lymph % (Auto) 9.1 L [place] % (Auto) 7.5 Eos % (Auto) 0.4 Baso % (Auto) 0.1 Absolute Neuts (auto) 13.4 H Absolute Lymphs (auto) 1.48 Nucleated RBC % 0.1 PT 22.0 H INR 2.0 Sodium 132 L Potassium 5.4 H Chloride 102 Carbon Dioxide 20.0 L Anion Gap 10 BUN 41 H Creatinine 1.49 H Estim Creat Clear Calc 34.97 Est GFR (MDRD) Af Amer 58 L Est GFR (MDRD) Non-Af 48 L BUN/Creatinine Ratio 27.5 H Glucose 204 H Lactic Acid Calcium 8.7 Total Bilirubin 0.70 AST 39 H ALT 26 Alkaline Phosphatase 66 Troponin I High Sens 1632 H* Total Protein 6.1 L Albumin 2.7 L Globulin 3.4 Albumin/Globulin Ratio 0.8 L Urine Color Urine Clarity Urine pH Ur Specific [place] Urine Protein Urine Glucose (UA) Urine Ketones Urine Occult Blood Urine Nitrite Urine Bilirubin Urine Urobilinogen Ur Leukocyte Esterase Urine RBC Urine WBC Ur Squamous Epith Cells Urine Bacteria Urine Mucus 12/13/21 12/13/21 17:10 17:43 WBC RBC Hgb Hct MCV MCH MCHC RDW Std Deviation RDW Coeff of [place] Plt Count MPV Immature Gran % (Auto) Neut % (Auto) Lymph % (Auto) [place] % (Auto) Eos % (Auto) Baso % (Auto) Absolute Neuts (auto) Absolute Lymphs (auto) Nucleated RBC % PT INR Sodium Potassium Chloride Carbon Dioxide Anion Gap BUN Creatinine Estim Creat Clear Calc Est GFR (MDRD) Af Amer Est GFR (MDRD) Non-Af BUN/Creatinine Ratio Glucose Lactic Acid 3.6 H* Calcium Total Bilirubin AST ALT Alkaline Phosphatase Troponin I High Sens Total Protein Albumin Globulin Albumin/Globulin Ratio Urine Color Yellow Urine Clarity Clear Urine pH 6.0 Ur Specific [place] 1.020 Urine Protein 15 H Urine Glucose (UA) Normal Urine Ketones 5 H Urine Occult Blood 10 H Urine Nitrite Negative Urine Bilirubin Negative Urine Urobilinogen Normal Ur Leukocyte Esterase 25 H Urine RBC 0 SEEN Urine WBC 0-5 SEEN Ur Squamous Epith Cells 0 SEEN Urine Bacteria 0 SEEN Urine Mucus 0 SEEN Radiography Diagnostic Testing: Clinical Impression(s) from Imaging Studies Brain CT 12/13/21 17:03 IMPRESSION: Chronic involutional changes of the brain. Electronically Signed: Colby Vilchis MD at 17:32 EDT , Chest X-Ray 12/13/21 17:25 IMPRESSION: Cardiomegaly. Electronically Signed: Mar Andrade MD at 18:17 EDT , Discharge Plan Triage Chief Complaint: Alt LOC ED Provider: Dave Hathaway Dx/Rx/DC Orders Clinical Impression: Acute delirium, Acute anemia, Transfusion of blood during current hospitalisation, Elevated troponin level, Lactic acidosis Prescriptions: No Action levothyroxine [Synthroid] 112 mcg tablet 112 mcg PO DAILY amlodipine 10 MG tablet 10 mg PO DAILY aspirin 81 MG tablet,chewable 81 mg PO DAILY@0800 Label Comments: stop 5 days preop warfarin 2.5 MG tablet 2.5 mg PO [facility] Label Comments: LAST DOSE 12/03/21 finasteride 5 MG tablet 5 mg PO DAILY warfarin 5 MG tablet 5 mg PO DAILY Label Comments: LAST DOSE 12/03/21 metoprolol tartrate 25 MG tablet 25 mg PO DAILY losartan 100 MG tablet 100 mg PO 1700 albuterol sulfate 90 mcg/actuation HFA aerosol inhaler 2 puff INHALATION PRN PRN (Reason: Congestion) metformin 500 mg tablet extended release 24 hr 2 tab PO BID enoxaparin 80 mg/0.8 mL syringe 0.8 ml subcut BID Label Comments: inject subcutaneously every 12 hours as directed by prescriber acetaminophen 500 mg Tablet 1,000 mg PO Q8 30 Days Qty: 180 0RF oxycodone 5 mg Tablet 5 - 10 mg PO Q4H PRN PRN (Reason: Pain Score 4-10) 7 Days Qty: 56 0RF ondansetron 4 mg tablet,disintegrating 4 mg PO Q6H PRN (Reason: nausea and vomiting) Qty: 10 0RF atorvastatin 40 mg tablet 40 mg PO DAILY amiodarone 200 mg Tablet 200 mg PO DAILY furosemide 20 mg tablet 20 mg PO DAILY Label Comments: take 1 tablet by mouth once daily and if needed for WEIGHT GAIN OR EDEMA Lutein Vison Formula Capsule 1 cap PO DAILY dutasteride 0.5 mg Capsule 0.5 mg PO DAILY Primary Care Provider: Jordan Monroy Referrals: Jordan Monroy MD [Primary Care Provider] - Disposition Disposition: Acute Care Hospital [facility]
[2021-12-13 17:59] LABS: Bacteria 0 SEEN /hpf (None Seen); Mucous, Urine 0 SEEN /hpf (<or=2+); Red Blood Cells-Urine 0 SEEN /hpf (0-5); Squamous Epithelial Cells - UA 0 SEEN /hpf (0-5)
[2021-12-13 18:00] LABS: ALB/GLOB Ratio 0.8 RATIO (0.9-2.4); AST(SGOT) 39 U/L (15-37); Alanine Aminotransfer ALT/SGPT 26 U/L (16-61); Albumin, Serum 2.7 g/dL (3.2-5.0); Alkaline Phosphatase 66 U/L (45-117); Anion Gap 10 (5-15); BUN 41 mg/dL (7-18); BUN/Creat Ratio 27.5 RATIO (10-20); Calcium,Total 8.7 mg/dL (8.5-10.1); Chloride 102 mmol/L (98-107); Creatinine, Serum 1.49 mg/dL (0.70-1.30); EST Glomerular Filtration Rate 48 mL/min (>60); Est Glom Filt Rate - Afr Amer 58 mL/min (>60); Estimated Creatinine Clearance 34.97 ml/min; Globulin 3.4 g/dL (2.2-4.2); Glucose 204 mg/dL (74-106); Potassium 5.4 mmol/L (3.5-5.1); Protein, Total 6.1 g/dL (6.4-8.2); Sodium Level 132 mmol/L (136-145); Troponin-I HS 1632 pg/mL (3.0-78.0)
[2021-12-13 18:01] LABS: Lactic Acid 3.6 mmol/L (0.4-1.9)
[2021-12-13 18:10] LABS: Color, Urine Yellow (Yellow); Glucose, Dipstick Normal (Normal); Ketone-Dipstick 5 mg/dl (Negative); Leukocyte Esterase-Dipstick 25 /ul (Negative); Nitrite-Dipstick Negative (Negative); Occult Blood-Urine 10 /ul (Negative); Protein-Dipstick 15 mg/dl (Negative); Urine Bilirubin Dipstick Negative (Negative); Urine Clarity Clear (Clear); Urine Urobilinogen Normal (Normal)
[2021-12-13 18:15] LABS: White Blood Cells 0-5 SEEN /hpf (0-5)
--- NOTE | 2021-12-13 19:54 | HP.PCM.HOS_ITS ---
[facility] - General General Date of Admission: 12/13/21 Date of Service: 12/13/21 Chief Complaint: Altered mental status today. Severe anemia, hemoglobin 6.2 g%. earlier patient had bleeding from the right hip operative site on 12/11/2021 HPI Narrative JLUIS ROUSE, is a 81 M who was brought to ED for being confused, combative and agitated by family members. History mainly taken from the family member, his and daughter near the bedside and ER physician. Patient is still mildly confused although able to talk, comprehend better and answer simple questions but is still does not remember or know most of the answers. As per family member, this is not typical for him. Patient had right total hip replacement by Dr. Geiger on 12/09/2021. Patient on bridging Lovenox and warfarin for mechanical mitral valve. On 12/11, patient was brought to ED for bleeding from the right hip. Dressing was changed with Aquacel, zechariah were intact, prescription for Zofran was given and was discharged. Prior to that patient hemoglobin was 8.2 and today noted to be 6.2 with mild leukocytosis. Platelet count 271,000. As per patient's , patient was mild confusion in the morning although he ate little bit breakfast. After that he got more agitated and combative, incomprehensive, talking in: He did not make sense. Patient took 1 tablet of oxycodone 5 mg in the morning and late afternoon as per the daughter. His changed the hip dressing in the morning and was soaked with blood Patient himself states no fever, no diarrhea, no hematuria. Patient is oriented to place person and time. Mild nausea. Denies chest pain, shortness of breath. No abdominal pain, denies burning micturition, hematochezia, melena. [facility] Medical History Ambulates with cane Anemia Arthritis CAD (coronary artery disease) Cancer Cardiology follow-up encounter Chest pain Chronic cough Congestive heart failure (CHF) CPAP (continuous positive airway pressure) dependence Diabetes Easy bruising Excessive bleeding Fatigue Former smoker Heart attack Heart disease High cholesterol Hip replacement planned History of atrial fibrillation History of CHF (congestive heart failure) History of edema History of heart attack History of pain when walking History of stress test Hx of bladder cancer Hyperlipemia ICD (implantable cardioverter-defibrillator) in place Ischemic cardiomyopathy Nausea On home oxygen therapy Osteoarthritis of left knee Pacemaker Screening for intestinal cancer Shortness of breath on exertion Sleep apnea Sleep apnea SOB (shortness of breath) Thyroid disease Thyroid disease Type 2 diabetes mellitus Ventricular tachycardia Wears dentures Wears glasses Home Medications amlodipine 10 mg tablet 10 mg PO DAILY bp 03/31/14 [History Last Taken 12/09/21] aspirin 81 mg chewable tablet 81 mg PO DAILY@0800 heart 03/31/14 [History Last Taken 12/06/21] levothyroxine 112 mcg tablet (Synthroid) 112 mcg PO DAILY thyroid 02/04/19 [History Last Taken 12/09/21] finasteride 5 mg tablet 5 mg PO DAILY prostate 03/22/20 [History Last Taken 12/08/21] losartan 100 mg tablet 100 mg PO 1700 heart 03/22/20 [History Last Taken 12/08/21] metoprolol tartrate 25 mg tablet 25 mg PO DAILY heart 03/22/20 [History Last Taken 12/09/21] warfarin 2.5 mg tablet 2.5 mg PO THSA blood thinner 03/22/20 [History Last Taken 12/04/21] warfarin 5 mg tablet 5 mg PO DAILY blood thinner 03/22/20 [History Last Taken 12/04/21] albuterol sulfate 90 mcg/actuation aerosol inhaler 2 puff inhalation PRN PRN Con gestion 11/15/21 [History Last Taken Unknown] metformin 500 mg tablet,extended release 24 hr 2 tab PO BID 11/15/21 [History Last Taken 12/08/21] enoxaparin 80 mg/0.8 mL subcutaneous syringe 0.8 ml subcut BID 12/09/21 [History Last Taken 12/08/21] acetaminophen 500 mg tablet 1,000 mg PO Q8 30 days #180 tabs 12/10/21 [Rx Last Taken 12/13/21] oxycodone 5 mg tablet 5 - 10 mg PO Q4H PRN PRN Pain Score 4-10 7 days #56 tabs 12/10/21 [Rx Last Taken Unknown] ondansetron 4 mg disintegrating tablet 4 mg PO Q6H PRN nausea and vomiting #10 tabs 12/11/21 [Rx Last Taken Unknown] amiodarone 200 mg tablet 200 mg PO DAILY HEART 12/13/21 [History Last Taken Unknown] atorvastatin 40 mg tablet 40 mg PO DAILY CHOLESTEROL 12/13/21 [History Last Taken Unknown] dutasteride 0.5 mg capsule 0.5 mg PO DAILY PROSTATE 12/13/21 [History Last Taken Unknown] furosemide 20 mg tablet 20 mg PO DAILY WT GAIN 12/13/21 [History Last Taken Unknown] vit C-vit K-lmcyea-aohvmpiv capsule 1 cap PO DAILY EYE VITAMIN 12/13/21 [History Last Taken Unknown] Allergy/AdvReac Type Severity Reaction Status Date / Time celecoxib [From Celebrex] Allergy Hives Verified 12/13/21 17:00 Sulfa (Sulfonamide Allergy Hives Verified 12/13/21 17:00 Antibiotics) Family History Mother Heart disease Lung cancer Myocardial infarction Surgical History History of bilateral carpal tunnel release History of bladder surgery History of cardiac defibrillator placement History of carotid endarterectomy History of implantable cardiac defibrillator (ICD) History of open heart surgery History of total left knee replacement (TKR) Hx of CABG Hx of cardiac cath Hx of cardiac pacemaker Hx of colonoscopy Hx of mitral valve replacement Hx of prostate biopsy Social History Smoking Status: Former smoker second hand exposure: No alcohol intake: never substance use type: does not use caffeine: Yes what type of physical activity do you participate in: none frequency: does not exercise ROS ROS Narrative 14 complete ROS is limited as patient is still confused. Has four-point restraint. Complain of pain over right hip region movement. Constitutional: No fever. Fatigue. Confused HEENT: No cough, not able to say other sore throat. Respiratory/Chest: Denies chest pain, shortness of breath at rest Gastrointestinal: Denies coffee ground emesis, hematemesis. Patient has nausea. Was given prescription for Zofran on 12/11. Genitourinary: Denies burning urination or new urinary tract symptoms. History of bladder cancer. Follows Dr. Todd Musculoskeletal: Reports right hip recent THR, joint pain and limited range of motion Neurologic: Denies seizure-like activity. No focal weakness. Detailed history unobtainable. skin: Right THR dressing soaked with blood. Endocrinology: Could not provide information Hematologic/Lymphatic: Recent bleeding on 12/11. Mild skin bruise over right lower abdomen from Lovenox. Could not provide information Rest 14 ROS are negative except as mentioned in HPI Vital Signs Vital Signs Vital Signs: 12/13/21 16:57 12/13/21 18:15 12/13/21 19:15 Temperature 97.2 F L 98 F Temperature Source Temporal Temporal Pulse Rate 85 73 60 Respiratory Rate 25 H 22 H 19 H Blood Pressure 176/160 H 125/80 H 139/43 H Blood Pressure Mean 165 95 75 Pulse Ox 97 99 99 Oxygen Delivery Method Room Air Nasal Cannula Room Air Weight Weight: 208 lb 12.444 oz Body Mass Index (BMI) 34.7 Physical Exam Narrative General: Awake, mild lethargy. Confused, oriented x3. Slow to respond HEENT: Atraumatic, PERRLA, EOMI, Normocephalic Oral: No Gingival or Mucosal Lesions/ Ulcerations. No oral bleeding Neck: Supple, No JVD, Negative Carotid Bruits Lungs: Air entry diminished in bilateral lung bases. No crepitation/rhonchi Cardiovascular: AICD. Mechanical click sound of MVR. Paced rhythm on monitor. Normal S1, Normal S2, No murmurs Abdomen: Bowel Sounds Present, Soft, Non Tender, Non-Distended : No renal angle tenderness. No suprapubic tenderness. Extremities: No edema, Capillary Refill Less than 3 Seconds Skin: Right hip dressing removed. [place] intact. Inside of dressing soaked with blood, pinkish color, serosanguineous type. No purulent drainage. No obvious hematoma. Musculoskeletal: Mild tenderness and fullness over right hip surgical site. Tenderness on movement. Neurological: Cranial nerves II-XII grossly intact, DTR 2+/4, detailed neuro exam unobtainable Psych/Mental Status: Flat affect, was agitated on four-point restraint Results Lab / Micro Data Result Diagrams: 12/13/21 17:10 12/13/21 17:10 Labs: Laboratory Results - last 24 hr 12/13/21 17:10: WBC 16.4 H, RBC 2.13 L, Hgb 6.2 L, Hct 19.9 L, MCV 93.4, MCH 29.1, MCHC 31.2 L, RDW Std Deviation 51.3 H, RDW Coeff of [place] 15.2 H, Plt Count 271, MPV 10.2, Immature Gran % (Auto) 1.200 H, Neut % (Auto) 81.7 H, Lymph % (Auto) 9.1 L, [place] % (Auto) 7.5, Eos % (Auto) 0.4, Baso % (Auto) 0.1, Absolute Neuts (auto) 13.4 H, Absolute Lymphs (auto) 1.48, Nucleated RBC % 0.1 12/13/21 17:10: PT 22.0 H, INR 2.0 12/13/21 17:10: Sodium 132 L, Potassium 5.4 H, Chloride 102, Carbon Dioxide 20.0 L, Anion Gap 10, BUN 41 H, Creatinine 1.49 H, Estim Creat Clear Calc 34.97, Est GFR (MDRD) Af Amer 58 L, Est GFR (MDRD) Non-Af 48 L, BUN/Creatinine Ratio 27.5 H , Glucose 204 H, Calcium 8.7, Total Bilirubin 0.70, AST 39 H, ALT 26, Alkaline Phosphatase 66, Troponin I High Sens 1632 H*, Total Protein 6.1 L, Albumin 2.7 L , Globulin 3.4, Albumin/Globulin Ratio 0.8 L 12/13/21 17:10: Lactic Acid 3.6 H* 12/13/21 17:43: Urine Color Yellow, Urine Clarity Clear, Urine pH 6.0, Ur Specific [place] 1.020, Urine Protein 15 H, Urine Glucose (UA) Normal, Urine Ketones 5 H, Urine Occult Blood 10 H, Urine Nitrite Negative, Urine Bilirubin Ne gative, Urine Urobilinogen Normal, Ur Leukocyte Esterase 25 H, Urine RBC 0 SEEN, Urine WBC 0-5 SEEN, Ur Squamous Epith Cells 0 SEEN, Urine Bacteria 0 SEEN, Urine Mucus 0 SEEN 12/13/21 18:36: Crossmatch See Detail Micro: Microbiology 12/13/21 17:37 Nasal Secretion SARS-CoV-2 & FLU Antigen (Rapid) - Final Radiology Impression Brain CT 12/13/21 17:03 IMPRESSION: Chronic involutional changes of the brain. Electronically Signed: Colby Vilchis MD at 17:32 EDT , Chest X-Ray 12/13/21 17:25 IMPRESSION: Cardiomegaly. Electronically Signed: Mar Andrade MD at 18:17 EDT , Assessment & Plan Assessment/Plan (1) Altered mental status: (2) Acute blood loss anemia: PLAN: Plan This is a 81-year-old patient with multiple comorbidities admitted with altered mental status with recent bleeding from right hip surgical site and severe anemi a. 1. Acute encephalopathy, exact etiology unclear possible metabolic from severe anemia: Patient is being admitted in PCU. The patient is more lucid as compared to when he was brought to ED. IV fluid normal saline 75 mill per hour. Monitor intake and output. UA is negative and patient does not have burning micturition, clinical features of UTI. Lactic acidosis, 3.6. Patient does not have clinical features suggestive of infection or sepsis. Leukocytosis was on 12/10 and 12/13 probably inflammatory from stress of surgery. 2. Acute blood loss anemia on baseline anemia of chronic disease: Patient baseline hemoglobin runs between 10 to 11 g, as per 11/19/2021. It was 8.2 on 12/10 and dropped to 6.2 on 12/13. 2 units of PRBC arranged, will transfuse 1 unit of PRBC as patient has history of severe chronic heart failure status post AICD. Monitor H&H. Patient still has mild very slow oozing. 3. Cardiac conditions: Chronic systolic heart failure, coronary artery disease, NSVT status post AICD, mechanical MVR on warfarin: As per last echo in August 2015, EF 20%, mildly dilated LV with R WMA. Mean transmitral valve gradient 6 mmHg. Normal prosthetic mitral valve. LA moderately enlarged, RVSP 46 mmHg. Mild pulmonary hypertension. Continue cardiac medication when patient is more a wake and alert after nursing swallow screen. 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 Young phone #[phone]. INR is 2.0. Continue warfarin. Patient to stop taking Lovenox, last dose a.m. of 12/12 and INR was therapeutic for last 2 days. As there is still oozing from the right hip surgical wound, will try to keep INR around 2.0 and once he stops, titrate up to about 3.0. 4. Degenerative hip and knee arthritis status post recent right hip total replacement on 12/09 and patient history of left TKR: PT and OT ordered 5. Diabetes mellitus type 2: Accu-Chek insulin coverage Humalog sliding scale. 6. History of bladder cancer: Follows Dr. Todd. Other comorbidities include obstructive sleep apnea, hypothyroidism, dyslipidemia Total time of the visit including total time spent in counseling or coordination of care, (more than 50% of the total time, spent in obtaining medical infor mation from nurses and other ancillary care providers,explaining to the patient about labs, imaging, diagnosis and management of active complex medical conditions), review of medical record, discussion with family members, review of labs and imaging is 55 minutes Living will/advanced directive/end of life care: Patient does have living will or advanced directive. And discussed with patient's and daughter near the bedside. Patient's daughter near the bedside is power of middleware administrator for health. After discussion of benefits/risks procedures involved with full code, DNR CC arrest and DNR CC, his and daughter agreed for DNRCC arrest with no intubation. Patient, his and daughter do not want artificial life support including intubation, tube feed, ventilator and/chest compression, central venous catheter, vasopressor and DC shock if needed Total time spent in [id number] encounter in discussion of advanced directive 16 minutes. Charges/Coding Visit Charges Inpatient E&M: 04648 Init Hosp L3 Procedures Hospitalists Procedures: 56850 Advncd Care Plan 30 Min
[2021-12-13 20:51] LABS: Magnesium 2.4 mg/dL (1.6-2.6)
[2021-12-13 21:13] LABS: Reflex Lactate? Y
[2021-12-13 22:39] LABS: Troponin-I HS 1863 pg/mL (3.0-78.0)
[2021-12-13] MEDS: Acetaminophen 500 MG Tablet 1000 MG PO (22:43)
[2021-12-13] MEDS: 0.9% Saline Lock 10 ML Syringe IV (22:55)
[2021-12-14] VITALS (16 sets, daily range): BP systolic 122–137; BP diastolic 46–60; PULSE 58–66; RESP 16–18; TEMP 36.2–36.9; O2SAT 96–100
[2021-12-14 01:20] LABS: Troponin-I HS 2150 pg/mL (3.0-78.0)
--- NOTE | 2021-12-14 01:22 | NURSING ---
Pts primary rn aware of troponin of 2150 at this time.
[2021-12-14 03:56] LABS: Bedside Glucose 147 mg/dL (74-106)
[2021-12-14 04:37] LABS: Troponin-I HS 2483 pg/mL (3.0-78.0)
--- NOTE | 2021-12-14 04:37 | NURSING ---
Pts primary rn aware of troponin of 2483 at this time.
--- NOTE | 2021-12-14 05:56 | EKG12_ITS ---
Test Reason : Blood Pressure : / mmHG Vent. Rate : 060 BPM Atrial Rate : 043 BPM P-R Int : 000 ms QRS Dur : 132 ms QT Int : 470 ms P-R-T Axes : 000 -77 140 degrees QTc Int : 470 ms Ventricular-paced rhythm Abnormal ECG Confirmed by CLIFF FROST, DIO ([id number]), commissioning editor MURPHY HELTON ([id number]) on 12/16/2021 2:05:24 PM Referred By: Confirmed By:DIO CORONADO MD
--- NOTE | 2021-12-14 06:01 | ECHOCS_ITS ---
Reason For Study: HIGH TROPONIN Procedure This was a 2D Doppler, Color Flow transthoracic echocardiogram. The study was technically difficult. Contrast injection was performed. Exam performed portable in patient room. Left Ventricle Mildly dilated left ventricle. Moderate segmental systolic dysfunction (see wall motion). The estimated ejection fraction is 35 %. Unable to assess diastolic dysfunction. Posterior-Basal: Hypokinetic. Infero-Basal: Akinetic. Mid-Anterior : Hypokinetic. Mid-Lateral : Hypokinetic. Mid- Posterior: Akinetic. Mid-Inferior: Akinetic. Mid-inferoseptal : Akinetic. Mid-anteroseptal : Hypokinetic. [place] : Hypokinetic. Right Ventricle Normal RV size. ICD or pacer leads identified within the right ventricle. Normal systolic function. Atria The left atrium is mildly enlarged. Normal right atrium. ICD or pacer leads identified within the right atrium. No doppler evidence for ASD. Mitral Valve Stable appearing mechanical mitral valve apparatus. Trivial transvalvular insufficiency of the mitral valve. Tricuspid Valve Normal tricuspid valve. Mild eccentric tricuspid valve insufficiency. Unable to estimate RV systolic pressure/pulmonary artery pressure due to technically difficult study. Aortic Valve Trisinus/trileaflet aortic valve. Moderate focal aortic valve calcification. Mild aortic stenosis. Pulmonic Valve The pulmonic valve is not well visualized. Great Vessels Normal sized aortic root. Calcified aortic root. Pericardium/Pleural No pericardial effusion. Medication Diluted definity 2ml given slow IV push to enhance endocardial definition. MMode/2D Measurements & Calculations LVIDd: 5.4 cm IVSd: 1.0 cm LVOT diam: 2.0 cm LVIDs: 4.7 cm LVPWd: 1.1 cm FS: 14.0 % LVOT area: 3.0 cm2 Ao root diam: 3.2 cm LVAd ap4: 41.5 cm2 SV(MOD-sp4): 48.4 ml LVLd ap4: 9.3 cm EDV(MOD-sp4): 148.8 ml EDV(sp4-el): 158.0 ml LVAs ap4: 31.3 cm2 LVLs ap4: 8.1 cm ESV(MOD-sp4): 100.4 ml ESV(sp4-el): 102.8 ml EF(MOD-sp4): 32.5 % EF(sp4-el): 34.9 % SV(sp4-el): 55.2 ml LA dimension(2D): 6.3 cm RA A4 area: 29.0 cm2 Doppler Measurements & Calculations MV E max sheyla: 151.2 cm/sec MV V2 max: 161.3 cm/sec Ao V2 max: 169.8 cm/sec MV max P.4 mmHg Ao max P.5 mmHg MV V2 mean: 82.7 cm/sec Ao V2 mean: 111.7 cm/sec MV mean P.8 mmHg Ao mean P.8 mmHg MV V2 VTI: 33.3 cm Ao V2 VTI: 37.2 cm MVA(VTI): 1.9 cm2 EZ(I,D): 1.7 cm2 EZ(V,D): 1.5 cm2 LV V1 max: 86.0 cm/sec SV(LVOT): 64.2 ml PA V2 max: 119.8 cm/sec LV V1 max P.0 mmHg PA V2 mean: 84.4 cm/sec LV V1 mean P.5 mmHg LV V1 mean: 56.1 cm/sec LV V1 VTI: 21.2 cm ECHO/Echo Complete W/ Contrast Interpretation Summary The study was technically difficult. Contrast injection was performed. Mildly dilated left ventricle. Moderate segmental systolic dysfunction (see wall motion). The estimated ejection fraction is 35 %. The left atrium is mildly enlarged. Stable appearing mechanical mitral valve apparatus. Trivial transvalvular insufficiency of the mitral valve. Mild eccentric tricuspid valve insufficiency. Mild aortic stenosis. Calcified aortic root. Unable to estimate RV systolic pressure/pulmonary artery pressure due to techni roddy difficult study. Unable to assess diastolic dysfunction. ICD or pacer leads identified within the right atrium ICD or pacer leads identified within the right ventricle. Ordering Physician: Edmar Calderon Performed By: Vivian Genao RCS
[2021-12-14] MEDS: Acetaminophen 500 MG Tablet 1000 MG PO ×3 (06:10→21:36)
[2021-12-14] MEDS: Levothyroxine 112 MCG Tablet PO (06:10)
[2021-12-14 07:25] LABS: Absolute Lymphocyte Count 1.35 X10^3/uL (0.83-4.51); Absolute Neutrophil Count 8.3 X10^3/uL (2.0-7.7); Basophil# 0.03 X10^3/uL; Basophil% 0.3 % (0-1); Eosinophils% 1.8 % (0-5); Hematocrit 25.5 % (40-54); Hemoglobin 8.3 g/dL (13.0-16.5); Lymphocyte # 1.35 X10^3/ul (0.83-4.51); Lymphocyte % 12.2 % (19-41); Mean Corp Hgb Conc 32.5 g/dL (32-36); Mean Corpuscular Hgb 29.6 pg (27.0-32.0); Mean Corpuscular Volume 91.1 fL (80-94); Mean Platelet Vol. 9.7 fl (6.2-12.0); Monocyte# 1.07 X10^3/uL; Monocyte% 9.7 % (0-10); NRBC Flagged by Analyzer 0.5 % (0-5); Neutrophil # 8.25 X10^3/uL (2.7-7.7); Neutrophil % 74.6 % (47-70); Platelet Count 234 K/mm3 (150-450); RBC Distribution Width CV 14.6 % (11.6-14.6); RBC Distribution Width SD 47.9 fl (35.1-43.9); White Blood Count 11.1 K/mm3 (4.4-11.0)
[2021-12-14 07:30] LABS: Bedside Glucose 153 mg/dL (74-106)
[2021-12-14 07:38] LABS: Anion Gap 5 (5-15); BUN 34 mg/dL (7-18); BUN/Creat Ratio 27.4 RATIO (10-20); Calcium,Total 8.6 mg/dL (8.5-10.1); Chloride 107 mmol/L (98-107); Creatinine, Serum 1.24 mg/dL (0.70-1.30); EST Glomerular Filtration Rate 60 mL/min (>60); Est Glom Filt Rate - Afr Amer 72 mL/min (>60); Estimated Creatinine Clearance 35.73 ml/min; Glucose 164 mg/dL (74-106); Potassium 4.8 mmol/L (3.5-5.1); Sodium Level 136 mmol/L (136-145)
[2021-12-14] MEDS: Furosemide 20 MG Tablet PO (08:11)
[2021-12-14] MEDS: amLODIPine 10 MG Tablet PO (08:11)
[2021-12-14] MEDS: Metoprolol Tartrate 25 MG Tablet PO (08:11)
[2021-12-14] MEDS: Amiodarone 200 MG Tablet PO (08:11)
[2021-12-14] MEDS: Aspirin 81 MG TAB.CHEW PO (08:12)
[2021-12-14] MEDS: Finasteride 5 MG Tablet PO (08:12)
[2021-12-14 08:22] LABS: International Normalized Ratio 2.1; Prothrombin Time (Protime)PT. 22.9 SECONDS (11.7-14.9)
[2021-12-14] MEDS: Insulin Lispro 100 UNIT/ML INSULN.PEN SC ×3 (11:29→21:42)
--- NOTE | 2021-12-14 11:43 | CON.PCM.CA_ITS ---
Assessment & Plan Assessment/Plan (1) Non-ST elevation (NSTEMI) myocardial infarction: PLAN: The patient presents with cardiac enzymes compatible with a non-ST segment elevation NV. He does not complain of classic acute coronary syndrome symptoms with respect to chest discomfort, etc. It is unclear as to whether or not his altered mental status was related to concerns of an underlying cardiovascular condition versus a noncardiac condition being related to his use of narcotics as well as to his marked anemia. His ECG demonstrates an electronic ventricular paced rhythm. An echocardiogram has been requested to evaluate his left ventricular wall motion and systolic function. At the moment he appears to be stable without acute symptoms. He will continue medical management as deemed appropriate. Depending upon his clinical course consideration will be given as to whether or not he will eventually require additional noninvasive or invasive cardiovascular studies. His future clinical course will also depend upon his underlying recent orthopedic surgery related issues and ongoing concerns of anemia. (2) CAD (coronary artery disease): PLAN: The patient has a history of CAD. The details are unknown at this time. He is being followed for his concerns of abnormal cardiac enzymes again with a question of whether this is primarily cardiovascular or secondary to noncardiovascular issues especially his anemia and potentially a type II related event. At the moment he will continue his monitoring. He will continue noninvasive valuation. He will continue medical therapy as deemed appropriate. (3) S/P CABG (coronary artery bypass graft): PLAN: The details of the patient's open heart surgery and CABG are unknown at this time. An attempt will be made to retrieve outside medical records for continuity of care. (4) Ischemic cardiomyopathy: PLAN: The patient has a history of an underlying ischemic mediated cardiomyopathy. His [facility] echocardiogram is as noted. He is pending a follow-up echocardiogram to reassess his left ventricular wall motion and systolic function. He will continue medical therapy. (5) CHF (congestive heart failure): PLAN: The patient has a history of CHF which appears to be chronic systolic mediated. At the moment he appears stable without acute symptoms. He will need continued medical management. (6) Hx of mitral valve replacement: PLAN: He has a history of a mechanical mitral valve replacement. Again the details of his mechanical mitral valve are unknown at this time. He will continue evaluation which includes an echocardiogram to reassess his valvular anatomy and physiology. (7) Atrial fibrillation: PLAN: He states he has a history of atrial fibrillation. He has been on medical therapy which has included anticoagulant therapy. (8) History of cardiac defibrillator placement: PLAN: He has a history of an ICD. He states that is never discharged. He believes the generator may need to be changed in approximately 6 to 12 months. (9) Hyperlipemia: PLAN: He should continue risk factor evaluation and care as deemed appropriate. (10) S/P total right hip arthroplasty: PLAN: He is status post right hip ORIF. Apparently there have been concern of postoperative hemorrhage. There is concern this is led to his marked anemia requiring PRBC transfusions. He is due to be evaluated by orthopedic surgery. The orthopedic surgery consultation recommendations will have an impact on his medical therapy including his anticoagulant therapy and potential future cardiovascular evaluation and care. (11) Acute anemia: PLAN: The patient has received PRBCs. His H&H has increased. This should benefit his oxygen carrying capacity and his cardiovascular status. (12) Altered mental status: PLAN: The patient's mental status appears to be improved since receiving his PRBCs. The patient will continue to be monitored. Addt'l Comments The patient's case has been discussed and reviewed with the patient, Dr. Calderon, and Dr. Mayfield. This note was generated using a voice recognition system and there may be incorrect words, spelling or punctuation that were not noted when reviewing the office note prior to saving. HPI Consult Data Date of Consult: 12/14/21 HPI Narrative HPI Narrative: JLUIS ROUSE, is a 81 year old white male who presents for cardiovascular consultation based upon concerns of abnormal high-sensitivity troponin I level superimposed upon a history of underlying CAD, CABG, ischemic mediated cardiomyopathy, CHF, valvular heart disease status post mitral valve replacement (mechanical), atrial fibrillation, status post ICD placement, hyperlipidemia, diabetes mellitus, status post recent right hip ORIF (12-09-2021), progressive anemia, and altered mental status. According to the patient and the [facility] staff, the patient was brought to the emergency department based on concerns of appearing agitated, combative, and confused. T he patient had been taking his narcotic analgesic therapy for his right hip ORIF. His family has stated that his surgical site/surgical dressing has remained positive for heme. The patient was evaluated in the emergency department. He was found to have mild elevation of his WBC, progressive decline of his hemoglobin down to 6.2, and INR of 2.1, and a troponin I level 1632. His ECG demonstrated an underlying electronic ventricular paced rhythm. He was subsequently placed in the PCU for further evaluation and care. He has been treated with IV PRBCs. A consult has been placed to orthopedic surgery based upon his continued surgical site hemorrhage. Today he appears to be more awake and alert. He states that from a cardiovascular standpoint he has been followed by Dr. Kendrick Young from [facility] in [place], [place] since his original cardiovascular diagnosis. He states he continues to travel to [place] for his cardiovascular follow-ups. He does not recall having any chest discomfort. He does not recall any significant shortness of breath or dyspnea. There has been no report of orthopnea or PND. He states he has not sensed any obvious palpitations nor has his ICD discharge. He states his ICD has never discharge. He believes his ICD generator will need to be changed in approximately 6 to 12 months. Since being in the ICU his cardiac enzymes have been followed. They have increased. His cardiac rhythm has remained an electronic ventricular paced rhythm. An echocardiogram has been requested to further evaluate his cardiac anatomy and function. Of note, he does have a previous [facility] transthoracic echocardiogram from 08-29-2015. Does results are noted below. His outside cardiovascular records are unavailable at this time for review. FORMERLY [facility], [facility] Medical History Ambulates with cane Anemia Arthritis CAD (coronary artery disease) Cancer Cardiology follow-up encounter Chest pain Chronic cough Congestive heart failure (CHF) CPAP (continuous positive airway pressure) dependence Diabetes Easy bruising Excessive bleeding Fatigue Former smoker Heart attack Heart disease High cholesterol Hip replacement planned History of atrial fibrillation History of CHF (congestive heart failure) History of edema History of heart attack History of pain when walking History of stress test Hx of bladder cancer Hyperlipemia ICD (implantable cardioverter-defibrillator) in place Ischemic cardiomyopathy Nausea On home oxygen therapy Osteoarthritis of left knee Pacemaker Screening for intestinal cancer Shortness of breath on exertion Sleep apnea Sleep apnea SOB (shortness of breath) Thyroid disease Thyroid disease Type 2 diabetes mellitus Ventricular tachycardia Wears dentures Wears glasses Home Medications amlodipine 10 mg tablet 10 mg PO DAILY bp 03/31/14 [History Last Taken 12/09/21] aspirin 81 mg chewable tablet 81 mg PO DAILY@0800 heart 03/31/14 [History Last Taken 12/06/21] levothyroxine 112 mcg tablet (Synthroid) 112 mcg PO DAILY thyroid 02/04/19 [History Last Taken 12/09/21] finasteride 5 mg tablet 5 mg PO DAILY prostate 03/22/20 [History Last Taken 12/08/21] losartan 100 mg tablet 100 mg PO 1700 heart 03/22/20 [History Last Taken 12/08/21] metoprolol tartrate 25 mg tablet 25 mg PO DAILY heart 03/22/20 [History Last Taken 12/09/21] warfarin 2.5 mg tablet 2.5 mg PO THSA blood thinner 03/22/20 [History Last Taken 12/04/21] warfarin 5 mg tablet 5 mg PO DAILY blood thinner 03/22/20 [History Last Taken 12/04/21] albuterol sulfate 90 mcg/actuation aerosol inhaler 2 puff inhalation PRN PRN Congestion 11/15/21 [History Last Taken Unknown] metformin 500 mg tablet,extended release 24 hr 2 tab PO BID 11/15/21 [History Last Taken 12/08/21] enoxaparin 80 mg/0.8 mL subcutaneous syringe 0.8 ml subcut BID 12/09/21 [History Last Taken 12/08/21] acetaminophen 500 mg tablet 1,000 mg PO Q8 30 days #180 tabs 12/10/21 [Rx Last Taken 12/13/21] oxycodone 5 mg tablet 5 - 10 mg PO Q4H PRN PRN Pain Score 4-10 7 days #56 tabs 12/10/21 [Rx Last Taken Unknown] ondansetron 4 mg disintegrating tablet 4 mg PO Q6H PRN nausea and vomiting #10 tabs 12/11/21 [Rx Last Taken Unknown] amiodarone 200 mg tablet 200 mg PO DAILY HEART 12/13/21 [History Last Taken Unknown] atorvastatin 40 mg tablet 40 mg PO DAILY CHOLESTEROL 12/13/21 [History Last Taken Unknown] dutasteride 0.5 mg capsule 0.5 mg PO DAILY PROSTATE 12/13/21 [History Last Taken Unknown] furosemide 20 mg tablet 20 mg PO DAILY WT GAIN 12/13/21 [History Last Taken Unknown] vit C-vit G-[id number] capsule 1 cap PO DAILY EYE VITAMIN 12/13/21 [History Last Taken Unknown] Allergy/AdvReac Type Severity Reaction Status Date / Time celecoxib [From Celebrex] Allergy Hives Verified 12/13/21 17:00 Sulfa (Sulfonamide Allergy Hives Verified 12/13/21 17:00 Antibiotics) Family History Mother Heart disease Lung cancer Myocardial infarction Surgical History History of bilateral carpal tunnel release History of bladder surgery History of cardiac defibrillator placement History of carotid endarterectomy History of implantable cardiac defibrillator (ICD) History of open heart surgery History of total left knee replacement (TKR) Hx of CABG Hx of cardiac cath Hx of cardiac pacemaker Hx of colonoscopy Hx of mitral valve replacement Hx of prostate biopsy Social History Smoking Status: Former smoker second hand exposure: No alcohol intake: never substance use type: does not use caffeine: Yes what type of physical activity do you participate in: none frequency: does not exercise ROS Constitutional Constitutional: Reports as per HPI Eyes Eyes: Reports as per HPI ENT HEENT: Reports as per HPI Cardiovascular Cardiovascular: Reports as per HPI Respiratory/Chest Respiratory/Chest: Reports as per HPI Gastrointestinal Gastrointestinal: Reports as per HPI Genitourinary Genitourinary: Reports as per HPI Musculoskeletal Musculoskeletal: Reports other Details: Right hip ORIF surgical site: Surgical d ressing Integumentary Integumentary: Reports as per HPI Neurologic Neurologic: Reports as per HPI Psychiatric Psychiatric: Reports as per HPI Physical Exam Const alert, oriented x3 and no apparent distress Orientation / Consciousness: awake HEENT normocephalic, head/scalp atraumatic and hearing grossly normal bilaterally Eyes PERRL, EOMs intact bilaterally, conjunctivae normal and no scleral icterus Neck full ROM, supple and no JVD Carotids: normal carotid upstroke Chest Chest: midline sternotomy incision Resp normal respiratory effort and clear to auscultation bilaterally Cardio regular rate, regular rhythm and S2 normal heart sound Heart Sounds: prosthetic sounds crisp prosthetic S1 GI normal to inspection, nondistended, normoactive bowel sounds Extremity no pedal edema Skin Skin Narrative: Right hip: ORIF site: Surgical dressing Psych mental status grossly normal Risk Stratification Risk Stratification Applicable: Yes Age >/= 65: Yes >/= 3 CAD Risk Factors (HTN, HLD, DM, family hx of CAD, or current smoker): Yes Aspirin Use in the Past 7 Days: No Severe Angina (>/= episodes in 24 hours): No EKG ST Changes >/= 0.5mm: No Positive Cardiac Marker: Yes BREEZY Risk Stratification Score: 3 BREEZY % Risk: 13% Risk Objective Data Vital Signs: Vital Signs Temp Pulse Resp BP Pulse Ox O2 Del Method O2 Flow Rate 97.4 F L 66 18 124/46 H 100 Nasal Cannula 3 12/14/21 10:00 12/14/21 10:00 12/14/21 10:00 12/14/21 10:00 12/14/21 10:00 12/14/21 10:00 12/14/21 10:00 Oxygen Flow Rate (L/min) 3 Oxygen Delivery Method Nasal Cannula Weight: 202 lb 2.622 oz Body Mass Index (BMI) 38.2 Intake & Output: Intake and Output for Last 24 Hours 12/12/21 12/13/21 12/14/21 23:59 23:59 23:59 Intake Total 0 / 0 800 / 800 Output Total 1600 / 1600 Balance 0 / -800 -800 / -800 Lab / Micro Data Result Diagrams: 12/14/21 07:15 12/14/21 07:15 Labs: Laboratory Results - last 24 hr 12/13/21 17:10: WBC 16.4 H, RBC 2.13 L, Hgb 6.2 L, Hct 19.9 L, MCV 93.4, MCH 29.1, MCHC 31.2 L, RDW Std Deviation 51.3 H, RDW Coeff of Tboi 15.2 H, Plt Count 271, MPV 10.2, Immature Gran % (Auto) 1.200 H, Neut % (Auto) 81.7 H, Lymph % (Auto) 9.1 L, Carver % (Auto) 7.5, Eos % (Auto) 0.4, Baso % (Auto) 0.1, Absolute Neuts (auto) 13.4 H, Absolute Lymphs (auto) 1.48, Nucleated RBC % 0.1 12/13/21 17:10: PT 22.0 H, INR 2.0 12/13/21 17:10: Sodium 132 L, Potassium 5.4 H, Chloride 102, Carbon Dioxide 20.0 L, Anion Gap 10, BUN 41 H, Creatinine 1.49 H, Estim Creat Clear Calc 34.97, Est GFR (MDRD) Af Amer 58 L, Est GFR (MDRD) Non-Af 48 L, BUN/Creatinine Ratio 27.5 H , Glucose 204 H, Calcium 8.7, Total Bilirubin 0.70, AST 39 H, ALT 26, Alkaline Phosphatase 66, Troponin I High Sens 1632 H*, Total Protein 6.1 L, Albumin 2.7 L , Globulin 3.4, Albumin/Globulin Ratio 0.8 L 12/13/21 17:10: Lactic Acid 3.6 H* 12/13/21 17:10: Magnesium 2.4 12/13/21 17:43: Urine Color Yellow, Urine Clarity Clear, Urine pH 6.0, Ur Specific Martin 1.020, Urine Protein 15 H, Urine Glucose (UA) Normal, Urine Ketones 5 H, Urine Occult Blood 10 H, Urine Nitrite Negative, Urine Bilirubin Negative, Urine Urobilinogen Normal, Ur Leukocyte Esterase 25 H, Urine RBC 0 SEEN, Urine WBC 0-5 SEEN, Ur Squamous Epith Cells 0 SEEN, Urine Bacteria 0 SEEN, Urine Mucus 0 SEEN 12/13/21 18:36: Blood Type A POSITIVE, Antibody Screen NEGATIVE, Crossmatch See Detail 12/13/21 21:52: Lactic Acid 1.0 12/13/21 21:52: Troponin I High Sens 1863 H* 12/13/21 22:17: POC Glucose 147 H 12/14/21 00:41: Troponin I High Sens 2150 H* 12/14/21 03:55: Troponin I High Sens 2483 H* 12/14/21 07:04: POC Glucose 153 H 12/14/21 07:15: WBC 11.1 H, RBC 2.80 L, Hgb 8.3 L, Hct 25.5 L, MCV 91.1, MCH 29.6, MCHC 32.5, RDW Std Deviation 47.9 H, RDW Coeff of Tobi 14.6, Plt Count 234, MPV 9.7, Immature Gran % (Auto) 1.400 H, Neut % (Auto) 74.6 H, Lymph % (Auto) 12.2 L, Carver % (Auto) 9.7, Eos % (Auto) 1.8, Baso % (Auto) 0.3, Absolute Neuts (auto) 8.3 H, Absolute Lymphs (auto) 1.35, Nucleated RBC % 0.5 12/14/21 07:15: Sodium 136, Potassium 4.8, Chloride 107, Carbon Dioxide 24.0, Anion Gap 5, BUN 34 H, Creatinine 1.24, Estim Creat Clear Calc 35.73, Est GFR (MDRD) Af Amer 72, Est GFR (MDRD) Non-Af 60, BUN/Creatinine Ratio 27.4 H, Glucose 164 H, Calcium 8.6 12/14/21 07:15: PT 22.9 H, INR 2.1 Micro: Microbiology 12/13/21 17:37 Nasal Secretion SARS-CoV-2 & FLU Antigen (Rapid) - Final Cardiology Labs/Tests 12/13/21 17:10: WBC 16.4 H, RBC 2.13 L, Hgb 6.2 L, Hct 19.9 L, MCV 93.4, MCH 29.1, MCHC 31.2 L, Plt Count 271, MPV 10.2, Immature Gran % (Auto) 1.200 H, Neut % (Auto) 81.7 H, Lymph % (Auto) 9.1 L, Carver % (Auto) 7.5, Eos % (Auto) 0.4, Baso % (Auto) 0.1, Absolute Neuts (auto) 13.4 H, Nucleated RBC % 0.1 12/13/21 17:10: PT 22.0 H, INR 2.0 12/13/21 17:10: Sodium 132 L, Potassium 5.4 H, Chloride 102, Carbon Dioxide 20.0 L, Anion Gap 10, BUN 41 H, Creatinine 1.49 H, Est GFR (MDRD) Af Amer 58 L, Est GFR (MDRD) Non-Af 48 L, BUN/Creatinine Ratio 27.5 H, Glucose 204 H, Calcium 8.7, Total Bilirubin 0.70 12/13/21 17:10: Lactic Acid 3.6 H* 12/13/21 17:10: Magnesium 2.4 12/13/21 17:43: Urine Color Yellow, Urine Clarity Clear, Urine pH 6.0, Ur Specific Martin 1.020, Urine Protein 15 H, Urine Glucose (UA) Normal, Urine Ketones 5 H, Urine Occult Blood 10 H, Urine Nitrite Negative, Urine Bilirubin Negative, Urine Urobilinogen Normal, Ur Leukocyte Esterase 25 H, Urine RBC 0 SEEN, Urine WBC 0-5 SEEN 12/13/21 21:52: Lactic Acid 1.0 12/14/21 07:15: WBC 11.1 H, RBC 2.80 L, Hgb 8.3 L, Hct 25.5 L, MCV 91.1, MCH 29.6, MCHC 32.5, Plt Count 234, MPV 9.7, Immature Gran % (Auto) 1.400 H, Neut % (Auto) 74.6 H, Lymph % (Auto) 12.2 L, Carver % (Auto) 9.7, Eos % (Auto) 1.8, Baso % (Auto) 0.3, Absolute Neuts (auto) 8.3 H, Nucleated RBC % 0.5 12/14/21 07:15: Sodium 136, Potassium 4.8, Chloride 107, Carbon Dioxide 24.0, An ion Gap 5, BUN 34 H, Creatinine 1.24, Est GFR (MDRD) Af Amer 72, Est GFR (MDRD) Non-Af 60, BUN/Creatinine Ratio 27.4 H, Glucose 164 H, Calcium 8.6 12/14/21 07:15: PT 22.9 H, INR 2.1 Rhythm: Electronic ventricular paced rhythm EKG: Electronic ventricular paced rhythm ECHO: 08-29-2015 Mildly dilated left ventricle The estimated ejection fraction is 20% There are regional wall motion abnormalities as specified The left atrium is moderately enlarged Bubble contrast study negative for right to left interatrial shunt Right ventricular systolic pressure estimated to be 46 mmHg Mild pulmonary hypertension Background rhythm appears to be atrial fibrillation. There is no comparison study available. Radiography Diagnostic Testing: Radiology Impression Brain CT 12/13/21 17:03 IMPRESSION: Chronic involutional changes of the brain. Electronically Signed: Colby Vilchis MD at 17:32 EDT , Chest X-Ray 12/13/21 17:25 IMPRESSION: Cardiomegaly. Electronically Signed: Mar Andrade MD at 18:17 EDT ,
[2021-12-14 11:51] LABS: Bedside Glucose 197 mg/dL (74-106)
--- NOTE | 2021-12-14 12:16 | CON.PCM.OR_ITS ---
HPI Consult Data Date of Consult: 12/14/21 HPI Narrative HPI Narrative: JLUIS ROUSE is a 81-year-old male who underwent right total hip arthroplasty with my partner Dr. Renee earlier this week on 12/09/2021. Patient was placed in observation postoperatively and discharged home on postoperative day #1. Patient has had some serosanguineous drainage from his wound upon discharge. Family noted some mental status changes yesterday. He was advised to go to the emergency department from our office after they called to update. Patient was being bridged with Lovenox and restarted on his warfarin for mechanical mitral valve. Hemoglobin upon arrival in the emergency department 12/13/2021 was 6.2 compared to 8.2 on postoperative day #1. Patient's Lovenox was stopped yesterday and his INR was 2.0 upon arrival. Patient was transfused 2 units packed red blood cells upon admission by the hospitalist. Patient states he feels much better today. He states the details of yesterday were foggy. He has been up with assistance. Denies any fevers, chills, nausea or vomiting, chest pain or shortness of breath. He complains of typical lateral hip pain consistent with acute postoperative pain from a right total hip arthroplasty. [facility] Medical History Ambulates with cane Anemia Arthritis CAD (coronary artery disease) Cancer Cardiology follow-up encounter Chest pain Chronic cough Congestive heart failure (CHF) CPAP (continuous positive airway pressure) dependence Diabetes Easy bruising Excessive bleeding Fatigue Former smoker Heart attack Heart disease High cholesterol Hip replacement planned History of atrial fibrillation History of CHF (congestive heart failure) History of edema History of heart attack History of pain when walking History of stress test Hx of bladder cancer Hyperlipemia ICD (implantable cardioverter-defibrillator) in place Ischemic cardiomyopathy Nausea On home oxygen therapy Osteoarthritis of left knee Pacemaker Screening for intestinal cancer Shortness of breath on exertion Sleep apnea Sleep apnea SOB (shortness of breath) Thyroid disease Thyroid disease Type 2 diabetes mellitus Ventricular tachycardia Wears dentures Wears glasses Home Medications amlodipine 10 mg tablet 10 mg PO DAILY bp 03/31/14 [History Last Taken 12/09/21] aspirin 81 mg chewable tablet 81 mg PO DAILY@0800 heart 03/31/14 [History Last Taken 12/06/21] levothyroxine 112 mcg tablet (Synthroid) 112 mcg PO DAILY thyroid 02/04/19 [History Last Taken 12/09/21] finasteride 5 mg tablet 5 mg PO DAILY prostate 03/22/20 [History Last Taken 12/08/21] losartan 100 mg tablet 100 mg PO 1700 heart 03/22/20 [History Last Taken 12/08/21] metoprolol tartrate 25 mg tablet 25 mg PO DAILY heart 03/22/20 [History Last Taken 12/09/21] warfarin 2.5 mg tablet 2.5 mg PO THSA blood thinner 03/22/20 [History Last Taken 12/04/21] warfarin 5 mg tablet 5 mg PO DAILY blood thinner 03/22/20 [History Last Taken 12/04/21] albuterol sulfate 90 mcg/actuation aerosol inhaler 2 puff inhalation PRN PRN Congestion 11/15/21 [History Last Taken Unknown] metformin 500 mg tablet,extended release 24 hr 2 tab PO BID 11/15/21 [History Last Taken 12/08/21] enoxaparin 80 mg/0.8 mL subcutaneous syringe 0.8 ml subcut BID 12/09/21 [History Last Taken 12/08/21] acetaminophen 500 mg tablet 1,000 mg PO Q8 30 days #180 tabs 12/10/21 [Rx Last Taken 12/13/21] oxycodone 5 mg tablet 5 - 10 mg PO Q4H PRN PRN Pain Score 4-10 7 days #56 tabs 12/10/21 [Rx Last Taken Unknown] ondansetron 4 mg disintegrating tablet 4 mg PO Q6H PRN nausea and vomiting #10 tabs 12/11/21 [Rx Last Taken Unknown] amiodarone 200 mg tablet 200 mg PO DAILY HEART 12/13/21 [History Last Taken Unknown] atorvastatin 40 mg tablet 40 mg PO DAILY CHOLESTEROL 12/13/21 [History Last Taken Unknown] dutasteride 0.5 mg capsule 0.5 mg PO DAILY PROSTATE 12/13/21 [History Last Taken Unknown] furosemide 20 mg tablet 20 mg PO DAILY WT GAIN 12/13/21 [History Last Taken Unknown] vit C-vit [id number] capsule 1 cap PO DAILY EYE VITAMIN 12/13/21 [History Last Taken Unknown] Allergy/AdvReac Type Severity Reaction Status Date / Time celecoxib [From Celebrex] Allergy Hives Verified 12/13/21 17:00 Sulfa (Sulfonamide Allergy Hives Verified 12/13/21 17:00 Antibiotics) Family History Mother Heart disease Lung cancer Myocardial infarction Surgical History History of bilateral carpal tunnel release History of bladder surgery History of cardiac defibrillator placement History of carotid endarterectomy History of implantable cardiac defibrillator (ICD) History of open heart surgery History of total left knee replacement (TKR) Hx of CABG Hx of cardiac cath Hx of cardiac pacemaker Hx of colonoscopy Hx of mitral valve replacement Hx of prostate biopsy Social History Smoking Status: Former smoker second hand exposure: No alcohol intake: never substance use type: does not use caffeine: Yes what type of physical activity do you participate in: none frequency: does not exercise ROS ROS Narrative 12 point review systems obtained, negative less otherwise noted HPI. Vital Signs Vital Signs Vital Signs: 12/13/21 16:57 12/13/21 18:15 12/13/21 19:15 Temperature 97.2 F L 98 F Temperature Source Temporal Temporal Pulse Rate 85 73 60 Pulse Strength Respiratory Rate 25 H 22 H 19 H Respiratory Effort Respiratory Depth Respiratory Pattern Blood Pressure 176/160 H 125/80 H 139/43 H Blood Pressure Mean 165 95 75 Blood Pressure Source Blood Pressure Position Blood Pressure Location Pulse Ox 97 99 99 Oxygen Delivery Method Room Air Nasal Cannula Room Air Oxygen Flow Rate (L/min) 12/13/21 20:07 12/13/21 20:10 12/13/21 21:43 Temperature 98 F 98 F 97.8 F Temperature Source Temporal Temporal Temporal Pulse Rate 60 60 62 Pulse Strength Respiratory Rate 17 15 18 Respiratory Effort Respiratory Depth Respiratory Pattern Blood Pressure 131/59 H 131/59 H 138/54 H Blood Pressure Mean 83 83 82 Blood Pressure Source Monitor Blood Pressure Position Semi-Fowlers Blood Pressure Location Right Arm Pulse Ox 97 100 99 Oxygen Delivery Method Room Air Nasal Cannula Oxygen Flow Rate (L/min) 3 12/13/21 22:00 12/13/21 23:20 12/13/21 23:00 Temperature 98.2 F Temperature Source Temporal Pulse Rate 60 Pulse Strength Normal (2+) Respiratory Rate 18 Respiratory Effort Respiratory Depth Respiratory Pattern Blood Pressure 123/51 H Blood Pressure Mean 75 Blood Pressure Source Monitor Blood Pressure Position Semi-Fowlers Blood Pressure Location Right Arm Pulse Ox 100 98 Oxygen Delivery Method Nasal Cannula Nasal Cannula Oxygen Flow Rate (L/min) 3 3 12/14/21 00:20 12/14/21 01:20 12/14/21 02:00 Temperature 98.3 F 97.8 F 98.4 F Temperature Source Temporal Temporal Temporal Pulse Rate 60 59 L 58 L Pulse Strength Respiratory Rate 16 18 16 Respiratory Effort Respiratory Depth Respiratory Pattern Blood Pressure 123/54 H 125/54 H 122/60 H Blood Pressure Mean 77 77 80 Blood Pressure Source Monitor Monitor Monitor Blood Pressure Position Supine Semi-Fowlers Semi-Fowlers Blood Pressure Location Right Arm Right Arm Right Arm Pulse Ox 98 97 98 Oxygen Delivery Method Nasal Cannula Nasal Cannula Room Air Oxygen Flow Rate (L/min) 3 3 12/14/21 03:35 12/13/21 20:03 12/13/21 22:00 Temperature 97.8 F Temperature Source Temporal Pulse Rate 62 60 Pulse Strength Respiratory Rate 18 Respiratory Effort Normal Respiratory Depth Normal Respiratory Pattern Normal Blood Pressure 130/55 H Blood Pressure Mean 80 Blood Pressure Source Monitor Blood Pressure Position Semi-Fowlers Blood Pressure Location Right Arm Pulse Ox 98 Oxygen Delivery Method Nasal Cannula Nasal Cannula Oxygen Flow Rate (L/min) 3 3 12/14/21 03:43 12/14/21 04:22 12/14/21 04:35 Temperature 97.9 F 97.2 F L Temperature Source Temporal Temporal Pulse Rate 59 L 60 Pulse Strength Respiratory Rate 18 16 Respiratory Effort Normal Respiratory Depth Normal Respiratory Pattern Normal Blood Pressure 126/59 H 129/51 H Blood Pressure Mean 81 77 Blood Pressure Source Monitor Monitor Blood Pressure Position Supine Supine Blood Pressure Location Right Arm Right Arm Pulse Ox 98 100 Oxygen Delivery Method Nasal Cannula Nasal Cannula Room Air Oxygen Flow Rate (L/min) 3 3 12/14/21 05:35 12/14/21 06:04 12/14/21 06:59 Temperature 97.8 F 97.9 F Temperature Source Temporal Temporal Pulse Rate 59 L 59 L 60 Pulse Strength Respiratory Rate 18 18 Respiratory Effort Respiratory Depth Respiratory Pattern Blood Pressure 137/53 H 137/53 H Blood Pressure Mean 81 81 Blood Pressure Source Monitor Monitor Blood Pressure Position Supine Supine Blood Pressure Location Right Arm Right Arm Pulse Ox 100 100 Oxygen Delivery Method Nasal Cannula Oxygen Flow Rate (L/min) 3 3 12/14/21 07:18 12/14/21 08:11 12/14/21 09:58 Temperature Temperature Source Pulse Rate 60 Pulse Strength Respiratory Rate Respiratory Effort Respiratory Depth Respiratory Pattern Blood Pressure 137/56 H Blood Pressure Mean Blood Pressure Source Blood Pressure Position Blood Pressure Location Pulse Ox 96 Oxygen Delivery Method Nasal Cannula Oxygen Flow Rate (L/min) 3 3 12/14/21 09:59 12/14/21 10:00 12/14/21 08:15 Temperature Temperature Source Pulse Rate Pulse Strength Normal (2+) Respiratory Rate Respiratory Effort Normal Respiratory Depth Normal Respiratory Pattern Normal Blood Pressure Blood Pressure Mean Blood Pressure Source Blood Pressure Position Blood Pressure Location Pulse Ox Oxygen Delivery Method Nasal Cannula Oxygen Flow Rate (L/min) 3 3 12/14/21 10:00 Temperature 97.4 F L Temperature Source Temporal Pulse Rate 66 Pulse Strength Respiratory Rate 18 Respiratory Effort Respiratory Depth Respiratory Pattern Blood Pressure 124/46 H Blood Pressure Mean 72 Blood Pressure Source Monitor Blood Pressure Position Sitting Blood Pressure Location Right Arm Pulse Ox 100 Oxygen Delivery Method Nasal Cannula Oxygen Flow Rate (L/min) 3 Weight Weight: 202 lb 2.622 oz Body Mass Index (BMI) 38.2 Physical Exam Narrative General -A&Ox3, NAD, appears stated age. Vital signs stable, afebrile. Respiratory -normal work of breathing, no intercostal retractions. CV -pulses regular, brisk capillary refill ?4 limbs. Abdomen-soft, nontender, nondistended. No guarding, rigidity, rebound tenderness. Musculoskeletal/neurologic -full range of motion nontender throughout bilateral upper extremities, left lower extremity with full sensation and strength in all dermatomes and myotomes. No midline cervical tenderness. Right lower extremity-well approximated with zechariah posterior lateral skin incision about the hip. Dressing in place demonstrated serous sanguinous drainage. Dressing removed. No significant erythema. No palpable fluctuance or induration. No expressible drainage. Skin wrinkling present without impending skin necrosis. DP pulse 2+. DF, PF, EHL 5/5. Negative Homans' sign. Calves nontender bilaterally. Sensation intact to light touch L3-S1 dermatomes right lower extremity. Lab / Micro Data Result Diagrams: 12/14/21 07:15 12/14/21 07:15 Labs: Laboratory Results - last 24 hr 12/13/21 17:10: WBC 16.4 H, RBC 2.13 L, Hgb 6.2 L, Hct 19.9 L, MCV 93.4, MCH 29.1, MCHC 31.2 L, RDW Std Deviation 51.3 H, RDW Coeff of Tobi 15.2 H, Plt Count 271, MPV 10.2, Immature Gran % (Auto) 1.200 H, Neut % (Auto) 81.7 H, Lymph % (Auto) 9.1 L, [place] % (Auto) 7.5, Eos % (Auto) 0.4, Baso % (Auto) 0.1, Absolute Neuts (auto) 13.4 H, Absolute Lymphs (auto) 1.48, Nucleated RBC % 0.1 12/13/21 17:10: PT 22.0 H, INR 2.0 12/13/21 17:10: Sodium 132 L, Potassium 5.4 H, Chloride 102, Carbon Dioxide 20.0 L, Anion Gap 10, BUN 41 H, Creatinine 1.49 H, Estim Creat Clear Calc 34.97, Est GFR (MDRD) Af Amer 58 L, Est GFR (MDRD) Non-Af 48 L, BUN/Creatinine Ratio 27.5 H , Glucose 204 H, Calcium 8.7, Total Bilirubin 0.70, AST 39 H, ALT 26, Alkaline Phosphatase 66, Troponin I High Sens 1632 H*, Total Protein 6.1 L, Albumin 2.7 L , Globulin 3.4, Albumin/Globulin Ratio 0.8 L 12/13/21 17:10: Lactic Acid 3.6 H* 12/13/21 17:10: Magnesium 2.4 12/13/21 17:43: Urine Color Yellow, Urine Clarity Clear, Urine pH 6.0, Ur Specific [place] 1.020, Urine Protein 15 H, Urine Glucose (UA) Normal, Urine Ketones 5 H, Urine Occult Blood 10 H, Urine Nitrite Negative, Urine Bilirubin Negative, Urine Urobilinogen Normal, Ur Leukocyte Esterase 25 H, Urine RBC 0 SEEN, Urine WBC 0-5 SEEN, Ur Squamous Epith Cells 0 SEEN, Urine Bacteria 0 SEEN, Urine Mucus 0 SEEN 12/13/21 18:36: Blood Type A POSITIVE, Antibody Screen NEGATIVE, Crossmatch See Detail 12/13/21 21:52: Lactic Acid 1.0 12/13/21 21:52: Troponin I High Sens 1863 H* 12/13/21 22:17: POC Glucose 147 H 12/14/21 00:41: Troponin I High Sens 2150 H* 12/14/21 03:55: Troponin I High Sens 2483 H* 12/14/21 07:04: POC Glucose 153 H 12/14/21 07:15: WBC 11.1 H, RBC 2.80 L, Hgb 8.3 L, Hct 25.5 L, MCV 91.1, MCH 29.6, MCHC 32.5, RDW Std Deviation 47.9 H, RDW Coeff of Tobi 14.6, Plt Count 234, MPV 9.7, Immature Gran % (Auto) 1.400 H, Neut % (Auto) 74.6 H, Lymph % (Auto) 12.2 L, [place] % (Auto) 9.7, Eos % (Auto) 1.8, Baso % (Auto) 0.3, Absolute Neuts (auto) 8.3 H, Absolute Lymphs (auto) 1.35, Nucleated RBC % 0.5 12/14/21 07:15: Sodium 136, Potassium 4.8, Chloride 107, Carbon Dioxide 24.0, Anion Gap 5, BUN 34 H, Creatinine 1.24, Estim Creat Clear Calc 35.73, Est GFR (MDRD) Af Amer 72, Est GFR (MDRD) Non-Af 60, BUN/Creatinine Ratio 27.4 H, Glucose 164 H, Calcium 8.6 12/14/21 07:15: PT 22.9 H, INR 2.1 12/14/21 11:25: POC Glucose 197 H Micro: Microbiology 12/13/21 17:37 Nasal Secretion SARS-CoV-2 & FLU Antigen (Rapid) - Final Radiology Impression Brain CT 12/13/21 17:03 IMPRESSION: Chronic involutional changes of the brain. Electronically Signed: Colby Vilchis MD at 17:32 EDT , Chest X-Ray 12/13/21 17:25 IMPRESSION: Cardiomegaly. Electronically Signed: Mar Andrade MD at 18:17 EDT , Assessment & Plan Assessment/Plan (1) Acute blood loss anemia: PLAN: See below (2) S/P total right hip arthroplasty: PLAN: Patient is doing better today after 2 units packed red blood cell and improved hemoglobin to 8.3. INR stable today at 2.1. Acute blood loss anemia in the setting of chronic anemia, expected to some degree from bridging Lovenox and restart of Coumadin. Restratification regarding holding anticoagulation is considered. With INRs stable at 2.1, holding Coumadin today is considered until ensuring hemoglobin is stable with plans to recheck H&H tomorrow. No plans for acute surgical intervention at this time. Mobilize with PT/OT Will follow Dry sterile dressing changes daily and as needed for saturation. Posterior hip precautions, weightbearing as tolerated right lower extremity.
[2021-12-14] MEDS: oxyCODONE 5 MG Tablet 2.5 MG PO ×2 (14:52→20:48)
[2021-12-14] MEDS: Losartan Potassium 100 MG Tablet PO (16:49)
[2021-12-14] MEDS: Glucerna Shake 120 ML LIQUID PO ×2 (16:49→21:35)
[2021-12-14 17:16] LABS: Bedside Glucose 150 mg/dL (74-106)
--- NOTE | 2021-12-14 17:33 | PN.HOSP_ITS ---
Subjective Subjective Patient was seen and examined today, I talked with orthopedic surgery (Dr. Brito) who was covering this weekend and I also talked with cardiology. Dr. Brito does not believe the patient is actively bleeding into the wound on his right leg, he states that more likely the patient dropped his blood count right after his surgery. Dr. Brito states that he does not feel the patient needs to go back to surgery at this time, I relayed this to cardiology, cardiology wants to restart the patient's Coumadin tomorrow. Objective Data Objective Data Vital Signs: Vital Signs Temp Pulse Resp BP Pulse Ox O2 Del Method O2 Flow Rate 97.2 F L 63 18 135/55 H 98 Nasal Cannula 3 12/14/21 16:00 12/14/21 16:00 12/14/21 16:00 12/14/21 16:00 12/14/21 16:00 12/14/21 16:00 12/14/21 16:00 Oxygen Flow Rate (L/min) 3 Oxygen Delivery Method Nasal Cannula Weight: 91.7 kg Body Mass Index (BMI) 38.2 Intake & Output: Intake and Output for Last 24 Hours 12/12/21 12/13/21 12/14/21 23:59 23:59 23:59 Intake Total 0 / 0 1350 / 1350 Output Total 3000 / 3000 Balance 0 / -800 -1650 / -1650 Lab / Micro Data Result Diagrams: 12/14/21 07:15 12/14/21 07:15 Labs: Laboratory Results - last 24 hr 12/13/21 17:10: PT 22.0 H, INR 2.0 12/13/21 17:10: Sodium 132 L, Potassium 5.4 H, Chloride 102, Carbon Dioxide 20.0 L, Anion Gap 10, BUN 41 H, Creatinine 1.49 H, Estim Creat Clear Calc 34.97, Est GFR (MDRD) Af Amer 58 L, Est GFR (MDRD) Non-Af 48 L, BUN/Creatinine Ratio 27.5 H , Glucose 204 H, Calcium 8.7, Total Bilirubin 0.70, AST 39 H, ALT 26, Alkaline Phosphatase 66, Troponin I High Sens 1632 H*, Total Protein 6.1 L, Albumin 2.7 L , Globulin 3.4, Albumin/Globulin Ratio 0.8 L 12/13/21 17:10: Lactic Acid 3.6 H* 12/13/21 17:10: Magnesium 2.4 12/13/21 17:43: Urine Color Yellow, Urine Clarity Clear, Urine pH 6.0, Ur Specific [place] 1.020, Urine Protein 15 H, Urine Glucose (UA) Normal, Urine Ketones 5 H, Urine Occult Blood 10 H, Urine Nitrite Negative, Urine Bilirubin Negative, Urine Urobilinogen Normal, Ur Leukocyte Esterase 25 H, Urine RBC 0 SEEN, Urine WBC 0-5 SEEN, Ur Squamous Epith Cells 0 SEEN, Urine Bacteria 0 SEEN, Urine Mucus 0 SEEN 12/13/21 18:36: Blood Type A POSITIVE, Antibody Screen NEGATIVE, Crossmatch See Detail 12/13/21 21:52: Lactic Acid 1.0 12/13/21 21:52: Troponin I High Sens 1863 H* 12/13/21 22:17: POC Glucose 147 H 12/14/21 00:41: Troponin I High Sens 2150 H* 12/14/21 03:55: Troponin I High Sens 2483 H* 12/14/21 07:04: POC Glucose 153 H 12/14/21 07:15: WBC 11.1 H, RBC 2.80 L, Hgb 8.3 L, Hct 25.5 L, MCV 91.1, MCH 29.6, MCHC 32.5, RDW Std Deviation 47.9 H, RDW Coeff of Tobi 14.6, Plt Count 234, MPV 9.7, Immature Gran % (Auto) 1.400 H, Neut % (Auto) 74.6 H, Lymph % (Auto) 12.2 L, [place] % (Auto) 9.7, Eos % (Auto) 1.8, Baso % (Auto) 0.3, Absolute Neuts (auto) 8.3 H, Absolute Lymphs (auto) 1.35, Nucleated RBC % 0.5 12/14/21 07:15: Sodium 136, Potassium 4.8, Chloride 107, Carbon Dioxide 24.0, Anion Gap 5, BUN 34 H, Creatinine 1.24, Estim Creat Clear Calc 35.73, Est GFR (MDRD) Af Amer 72, Est GFR (MDRD) Non-Af 60, BUN/Creatinine Ratio 27.4 H, Glucose 164 H, Calcium 8.6 12/14/21 07:15: PT 22.9 H, INR 2.1 12/14/21 11:25: POC Glucose 197 H 12/14/21 16:47: POC Glucose 150 H Micro: Microbiology 12/13/21 17:37 Nasal Secretion SARS-CoV-2 & FLU Antigen (Rapid) - Final Radiography Diagnostic Testing: Radiology Impression Brain CT 12/13/21 17:03 IMPRESSION: Chronic involutional changes of the brain. Electronically Signed: Colby Vilchis MD at 17:32 EDT , Chest X-Ray 12/13/21 17:25 IMPRESSION: Cardiomegaly. Electronically Signed: Mar Andrade MD at 18:17 EDT , Echocardiogram 12/14/21 06:01 Interpretation Summary The study was technically difficult. Contrast injection was performed. Mildly dilated left ventricle. Moderate segmental systolic dysfunction (see wall motion). The estimated ejection fraction is 35 %. The left atrium is mildly enlarged. Stable appearing mechanical mitral valve apparatus. Trivial transvalvular insufficiency of the mitral valve. Mild eccentric tricuspid valve insufficiency. Mild aortic stenosis. Calcified aortic root. Unable to estimate RV systolic pressure/pulmonary artery pressure due to rosa elena hnically difficult study. Unable to assess diastolic dysfunction. ICD or pacer leads identified within the right atrium ICD or pacer leads identified within the right ventricle. _ Ordering Physician: Edmar Calderon Performed By: Vivian Genao RCS Physical Exam Const alert, oriented x3 and no apparent distress Constitutional Narrative: Patient appears stated age General Appearance: cooperative, well kempt and well developed Orientation / Consciousness: awake, oriented to person, oriented to place and oriented to time HEENT normocephalic, head/scalp atraumatic and moist oral mucous membranes Eyes PERRL, EOMs intact bilaterally and conjunctivae normal Neck supple, no JVD, thyroid normal and no carotid bruits General: trachea midline Resp normal respiratory effort, no retractions, no use of accessory muscles and clear to auscultation bilaterally Auscultation: Negative for rales, rhonchi or wheezes Cardio regular rate, regular rhythm, no murmurs, no rub and no gallops Cardio Narrative: Mechanical click is noted over the apex of the heart GI normal to inspection, nondistended, normoactive bowel sounds, soft to palpation, non-tender and non-distended Extremity Extremity Narrative: There is a healing surgical incision over the patient's right lateral thigh area, there is some ecchymosis noted in the area, there is no drainage noted from the area at the time my examination, patient has some serosanguineous drainage on his surgical dressing Skin no rashes or lesions noted General Skin Exam: no breakdown Neuro oriented x3, CN's II-XII intact bilaterally, no focal motor deficits and no sens ory deficits noted Sensorium / Orientation: awake and alert Speech: speech normal Psych affect normal Assessment & Plan Assessment/Plan (1) CAD (coronary artery disease): PLAN: Plan 1. Acute encephalopathy-etiology unclear-at the time my examination, patient answers questions appropriately, patient will be monitored #2 [id number] echocardiogram today showed a 35% EF which is similar to the patient's EF on his last cardiac catheterization according to cardiology. Cardiology is participating in his care, there is no intervention planned on the patient at this time. #3 acute blood loss anemia-probably secondary to recent hip replacement surgery- according to orthopedic surgery, there is no signs of active bleeding at this time from the surgical site on his right hip. Patient CBC will be rechecked tomorrow #4 lactic acidosis-etiology unclear, patient does not appear to be septic #5 ischemic cardiomyopathy-patient will remain on his current medications, he is being followed by cardiology #6 use of chronic anticoagulation secondary to mechanical mitral valve-patient's warfarin will be restarted tomorrow, INR will be obtained in the morning #7 hyperlipidemia-patient is on atorvastatin #8 essential hypertension-patient will remain on his present blood pressure medications #9 hypothyroidism-patient is on Synthroid #10 paroxysmal atrial fibrillation-patient is currently on rate limiting medication and Cordarone #11 chronic systolic congestive heart failure-continue present medications #12 chronic hypoxic respiratory failure-patient is currently on 3 L nasal cannula while sleeping Charges/Coding Visit Charges Inpatient E&M: 09247 Subs Hosp L3
--- NOTE | 2021-12-14 18:27 | CASEMGMT ---
Face to Face with patient for initial transition planning/care coordination assessment. YUSEF WEIR introduced self and role at [facility], voices understanding. Pt alert and oriented x3 and willing to answer this RN DESTIN's questions. Care providers, pharmacy, and demographics verified. PCP: Eliana but states he is in the process of transferring to his 's doctor Dr. Lombardo at [facility] Specialists: Dr. Renee, Dr. Leiva (Cardiology) Preferred Pharmacy: [facility] Retail pharmacy Insurance: MCR A/B, [place] supplement Prescription Benefit: Yes LNOK: Jumana Gomez Living Arrangements:Pt lives with his in a three story home and states he is able to navigate the steps in the home. 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 She is currently limited due to some eye issues but this is temporary. DME: Tub/shower chair, BSC, Cane, grab bars, hand held shower, walker, O2 at 3l/min from [facility], Cpap. SNF/HH: Pt states he has had a previous stay at [facility] and home health from [facility]: Pt states he plans to return home and attend outpatient therapy at [facility] as he had previously planned. States he has a son who lives down the hill from his residence and is available to assist as needed as well as his . Discussed the option of home health and pt would be agreeable if necessary but would prefer outpt tx. Will continue to follow and assist as needs are identified. Ayush Poe RN CM
[2021-12-14] MEDS: Atorvastatin Calcium 40 MG Tablet PO (21:36)
[2021-12-14 23:25] LABS: Bedside Glucose 164 mg/dL (74-106)
[2021-12-15] VITALS (12 sets, daily range): BP systolic 136–149; BP diastolic 46–56; PULSE 60–110; RESP 16–18; TEMP 36.3–36.9; O2SAT 95–100
[2021-12-15] MEDS: oxyCODONE 5 MG Tablet 2.5 MG PO ×2 (00:50→06:57)
[2021-12-15 05:04] LABS: Absolute Lymphocyte Count 1.34 X10^3/uL (0.83-4.51); Absolute Neutrophil Count 6.8 X10^3/uL (2.0-7.7); Basophil# 0.02 X10^3/uL; Basophil% 0.2 % (0-1); Eosinophil# 0.32 X10^3/uL; Eosinophils% 3.3 % (0-5); Hematocrit 25.2 % (40-54); Hemoglobin 8.2 g/dL (13.0-16.5); Lymphocyte # 1.34 X10^3/ul (0.83-4.51); Lymphocyte % 13.9 % (19-41); Mean Corp Hgb Conc 32.5 g/dL (32-36); Mean Corpuscular Hgb 29.9 pg (27.0-32.0); Mean Platelet Vol. 9.8 fl (6.2-12.0); Monocyte# 1.05 X10^3/uL; Monocyte% 10.9 % (0-10); NRBC Flagged by Analyzer 0 % (0-5); Neutrophil # 6.77 X10^3/uL (2.7-7.7); Neutrophil % 70.4 % (47-70); Platelet Count 256 K/mm3 (150-450); RBC Distribution Width CV 15.1 % (11.6-14.6); RBC Distribution Width SD 49.5 fl (35.1-43.9); Red Blood Count 2.74 M/mm3 (4.6-6.2); White Blood Count 9.6 K/mm3 (4.4-11.0)
[2021-12-15 05:44] LABS: Troponin-I HS 2168 pg/mL (3.0-78.0)
[2021-12-15] MEDS: Acetaminophen 500 MG Tablet 1000 MG PO ×3 (05:54→21:55)
[2021-12-15] MEDS: Levothyroxine 112 MCG Tablet PO (05:54)
[2021-12-15] MEDS: Insulin Lispro 100 UNIT/ML INSULN.PEN SC ×4 (06:46→21:58)
[2021-12-15 07:16] LABS: Bedside Glucose 154 mg/dL (74-106)
[2021-12-15] MEDS: Metoprolol Tartrate 25 MG Tablet PO (08:28)
[2021-12-15] MEDS: Furosemide 20 MG Tablet PO (08:28)
[2021-12-15] MEDS: amLODIPine 10 MG Tablet PO (08:28)
[2021-12-15] MEDS: Aspirin 81 MG TAB.CHEW PO (08:28)
[2021-12-15] MEDS: Finasteride 5 MG Tablet PO (08:28)
[2021-12-15] MEDS: Glucerna Shake 120 ML LIQUID PO ×4 (08:29→21:52)
[2021-12-15] MEDS: oxyCODONE 5 MG Tablet PO ×2 (10:29→23:56)
--- NOTE | 2021-12-15 10:33 | PN.HOSP_ITS ---
Subjective Subjective Patient was seen and examined today, he is alert and appropriate. I talked with the today by phone, she would like us to try to get the [facility] [place] for [facility] rehab. We will try to work on this tomorrow. Patient's hemoglobin appears to be stable at this time, it was 8.2 today. Objective Data Objective Data Vital Signs: Vital Signs Temp Pulse Resp BP Pulse Ox O2 Del Method O2 Flow Rate 98.1 F 61 16 140/52 H 95 Nasal Cannula 3 12/15/21 05:52 12/15/21 08:28 12/15/21 05:52 12/15/21 08:28 12/15/21 07:18 12/15/21 07:18 12/15/21 09:35 Oxygen Flow Rate (L/min) 3 Oxygen Delivery Method Nasal Cannula Weight: 91.7 kg Body Mass Index (BMI) 38.2 Intake & Output: Intake and Output for Last 24 Hours 12/13/21 12/14/21 12/15/21 23:59 23:59 23:59 Intake Total 0 / 0 1830 / 2130 600 / 600 Output Total 3000 / 3000 Balance 0 / -800 -1170 / -870 600 / 600 Lab / Micro Data Result Diagrams: 12/15/21 04:44 12/14/21 07:15 Labs: Laboratory Results - last 24 hr 12/14/21 11:25: POC Glucose 197 H 12/14/21 16:47: POC Glucose 150 H 12/14/21 21:42: POC Glucose 164 H 12/15/21 04:44: PT 22.0 H, INR 2.0 12/15/21 04:44: WBC 9.6, RBC 2.74 L, Hgb 8.2 L, Hct 25.2 L, MCV 92.0, MCH 29.9, MCHC 32.5, RDW Std Deviation 49.5 H, RDW Coeff of Tobi 15.1 H, Plt Count 256, MPV 9.8, Immature Gran % (Auto) 1.300 H, Neut % (Auto) 70.4 H, Lymph % (Auto) 13.9 L , [place] % (Auto) 10.9 H, Eos % (Auto) 3.3, Baso % (Auto) 0.2, Absolute Neuts (auto) 6.8, Absolute Lymphs (auto) 1.34, Nucleated RBC % 0 12/15/21 04:44: Troponin I High Sens 2168 H* 12/15/21 06:44: POC Glucose 154 H Micro: Microbiology 12/13/21 17:37 Nasal Secretion SARS-CoV-2 & FLU Antigen (Rapid) - Final Radiography Diagnostic Testing: Radiology Impression Echocardiogram 12/14/21 06:01 Interpretation Summary The study was technically difficult. Contrast injection was performed. Mildly dilated left ventricle. Moderate segmental systolic dysfunction (see wall motion). The estimated ejection fraction is 35 %. The left atrium is mildly enlarged. Stable appearing mechanical mitral valve apparatus. Trivial transvalvular insufficiency of the mitral valve. Mild eccentric tricuspid valve insufficiency. Mild aortic stenosis. Calcified aortic root. Unable to estimate RV systolic pressure/pulmonary artery pressure due to technically difficult study. Unable to assess diastolic dysfunction. ICD or pacer leads identified within the right atrium ICD or pacer leads identified within the right ventricle. Ordering Physician: Edmar Calderon Performed By: Vivian Genao RCS Physical Exam Narrative alert, oriented x3 and no apparent distress Constitutional Narrative: Patient appears stated age General Appearance: cooperative, well kempt and well developed Orientation / Consciousness: awake, oriented to person, oriented to place and oriented to time HEENT normocephalic, head/scalp atraumatic and moist oral mucous membranes Eyes PERRL, EOMs intact bilaterally and conjunctivae normal Neck supple, no JVD, thyroid normal and no carotid bruits General: trachea midline Resp normal respiratory effort, no retractions, no use of accessory muscles and clear to auscultation bilaterally Auscultation: Negative for rales, rhonchi or wheezes Cardio regular rate, regular rhythm, no murmurs, no rub and no gallops Cardio Narrative: Mechanical click is noted over the apex of the heart GI normal to inspection, nondistended, normoactive bowel sounds, soft to palpation, non-tender and non-distended Extremity Extremity Narrative: There is a healing surgical incision over the patient's right lateral thigh area, there is some ecchymosis noted in the area, there is no drainage noted from the area? at the time my examination, patient has some serosanguineous drainage on his surgical dressing Skin no rashes or lesions noted General Skin Exam: no breakdown Neuro oriented x3, CN's II-XII intact bilaterally, no focal motor deficits and no sensory deficits noted Sensorium / Orientation: awake and alert Speech: speech normal Psych affect normal Const alert, oriented x3, no apparent distress and healthy appearing Constitutional Narrative: Patient appears stated age General Appearance: cooperative, well kempt and well developed Orientation / Consciousness: awake, oriented to person, oriented to place and oriented to time HEENT normocephalic, head/scalp atraumatic and moist oral mucous membranes Eyes PERRL, EOMs intact bilaterally and conjunctivae normal Neck supple, no JVD, thyroid normal and no carotid bruits General: trachea midline Resp normal respiratory effort, no retractions, no use of accessory muscles and clear to auscultation bilaterally Auscultation: Negative for rales, rhonchi or wheezes Cardio regular rate, regular rhythm, no murmurs, no rub and no gallops Cardio Narrative: Mechanical click is noted over the apex of the heart GI normal to inspection, nondistended, normoactive bowel sounds, soft to palpation, non-tender and non-distended Extremity no clubbing, cyanosis or edema Extremity Narrative: There is a healing surgical incision over the patient's right lateral thigh area, there is some ecchymosis noted in the area, there is no drainage noted from the area at the time my examination, patient has some serosanguineous drainage on his surgical dressing Skin no rashes or lesions noted General Skin Exam: no breakdown Neuro oriented x3, CN's II-XII intact bilaterally, no focal motor deficits and no sensory deficits noted Sensorium / Orientation: awake and alert Speech: speech normal Psych affect normal Assessment & Plan Assessment/Plan (1) Acute blood loss anemia: (2) CAD (coronary artery disease): PLAN: Plan 1. Acute encephalopathy-etiology unclear-resolved at this time, possibly secondary to medication reaction #2 [id number] echocardiogram showed a 35% EF which is similar to the patient's EF on his last cardiac catheterization according to cardiology. Cardiology is participating in his care, there is no intervention planned on the patient at this time. #3 acute blood loss anemia-probably secondary to recent hip replacement surgery- according to orthopedic surgery, there is no signs of active bleeding at this time from the surgical site on his right hip. Patient's hemoglobin is stable. #4 lactic acidosis-etiology unclear, patient does not appear to be septic #5 ischemic cardiomyopathy-patient will remain on his current medications, he is being followed by cardiology #6 use of chronic anticoagulation secondary to mechanical mitral valve-patient's warfarin will be restarted tomorrow, INR this morning was 2 #7 hyperlipidemia-patient is on atorvastatin #8 essential hypertension-patient will remain on his present blood pressure medications #9 hypothyroidism-patient is on Synthroid #10 paroxysmal atrial fibrillation-patient is currently on rate limiting medication and Cordarone #11 chronic systolic congestive heart failure-continue present medications #12 chronic hypoxic respiratory failure-patient is currently on 3 L nasal cannula while sleeping #13 acute debility-patient will need temporary placement in long term facility/rehab unit, case management will be working on placement tomorrow #14 mechanical mitral valve-patient's warfarin will be restarted today Charges/Coding Visit Charges Inpatient E&M: 31961 Subs Hosp L2
--- NOTE | 2021-12-15 10:36 | PN.ORTHO_ITS ---
Subjective Subjective Patient seen and examined. States he feels much better today. Denies any fevers, chills, nausea vomiting, chest pain or shortness of breath. He states he is mobilizing well with physical therapy and nursing. Objective Data Objective Data Vital Signs: Vital Signs Temp Pulse Resp BP Pulse Ox O2 Del Method O2 Flow Rate 98.1 F 61 16 140/52 H 95 Nasal Cannula 3 12/15/21 05:52 12/15/21 08:28 12/15/21 05:52 12/15/21 08:28 12/15/21 07:18 12/15/21 07:18 12/15/21 09:35 Oxygen Flow Rate (L/min) 3 Oxygen Delivery Method Nasal Cannula Weight: 202 lb 2.622 oz Body Mass Index (BMI) 38.2 Intake & Output: Intake and Output for Last 24 Hours 12/13/21 12/14/21 12/15/21 23:59 23:59 23:59 Intake Total 0 / 0 1830 / 2130 600 / 600 Output Total 3000 / 3000 Balance 0 / -800 -1170 / -870 600 / 600 Lab / Micro Data Result Diagrams: 12/15/21 04:44 12/14/21 07:15 Labs: Laboratory Results - last 24 hr 12/14/21 11:25: POC Glucose 197 H 12/14/21 16:47: POC Glucose 150 H 12/14/21 21:42: POC Glucose 164 H 12/15/21 04:44: PT 22.0 H, INR 2.0 12/15/21 04:44: WBC 9.6, RBC 2.74 L, Hgb 8.2 L, Hct 25.2 L, MCV 92.0, MCH 29.9, MCHC 32.5, RDW Std Deviation 49.5 H, RDW Coeff of Tobi 15.1 H, Plt Count 256, MPV 9.8, Immature Gran % (Auto) 1.300 H, Neut % (Auto) 70.4 H, Lymph % (Auto) 13.9 L , [place] % (Auto) 10.9 H, Eos % (Auto) 3.3, Baso % (Auto) 0.2, Absolute Neuts (auto) 6.8, Absolute Lymphs (auto) 1.34, Nucleated RBC % 0 12/15/21 04:44: Troponin I High Sens 2168 H* 12/15/21 06:44: POC Glucose 154 H Micro: Microbiology 12/13/21 17:37 Nasal Secretion SARS-CoV-2 & FLU Antigen (Rapid) - Final Radiography Diagnostic Testing: Radiology Impression Echocardiogram 12/14/21 06:01 Interpretation Summary The study was technically difficult. Contrast injection was performed. Mildly dilated left ventricle. Moderate segmental systolic dysfunction (see wall motion). The estimated ejection fraction is 35 %. The left atrium is mildly enlarged. Stable appearing mechanical mitral valve apparatus. Trivial transvalvular insufficiency of the mitral valve. Mild eccentric tricuspid valve insufficiency. Mild aortic stenosis. Calcified aortic root. Unable to estimate RV systolic pressure/pulmonary artery pressure due to technically difficult study. Unable to assess diastolic dysfunction. ICD or pacer leads identified within the right atrium ICD or pacer leads identified within the right ventricle. _ Ordering Physician: Edmar Calderon Performed By: Vivian Genao RCS Physical Exam Narrative General - A&Ox3, NAD. VSS/AF Right lower extremity -incisional dressing C/D/I. SILT Sural, Saphenous, SPN, DPN, Tibial N. distributions. DP, PT 2+. BCR. DF, PF, EHL /. No calf TTP. Assessment & Plan Assessment/Plan (1) S/P total right hip arthroplasty: PLAN: Hemoglobin stable today as is INR. No evidence of continued blood loss from the hip. Okay to restart Coumadin today. Discussed plan with hospitalist with plans of possible acute rehab. Okay for discharge from my standpoint when cleared for discharge from medical standpoint. Continue dry sterile dressing changes daily and as needed for saturation. Follow-up as scheduled. All questions answered to patient satisfaction. Please call if any questions or concerns arise in the meantime.
--- NOTE | 2021-12-15 11:04 | PN.CARD_ITS ---
Subjective Subjective The patient is awake and alert. He denies any ongoing issues of chest discomfort or difficulty breathing. Objective Data Vital Signs: Vital Signs Temp Pulse Resp BP Pulse Ox O2 Del Method O2 Flow Rate 98.1 F 61 16 140/52 H 95 Room Air 3 12/15/21 05:52 12/15/21 08:28 12/15/21 05:52 12/15/21 08:28 12/15/21 07:18 12/15/21 08:25 12/15/21 09:35 Oxygen Flow Rate (L/min) 3 Oxygen Delivery Method Room Air Weight: 202 lb 2.622 oz Body Mass Index (BMI) 38.2 Intake & Output: Intake and Output for Last 24 Hours 12/13/21 12/14/21 12/15/21 23:59 23:59 23:59 Intake Total 0 / 0 1830 / 2130 600 / 600 Output Total 3000 / 3000 Balance 0 / -800 -1170 / -870 600 / 600 Lab / Micro Data Result Diagrams: 12/15/21 04:44 12/14/21 07:15 Labs: Laboratory Results - last 24 hr 12/14/21 11:25: POC Glucose 197 H 12/14/21 16:47: POC Glucose 150 H 12/14/21 21:42: POC Glucose 164 H 12/15/21 04:44: PT 22.0 H, INR 2.0 12/15/21 04:44: WBC 9.6, RBC 2.74 L, Hgb 8.2 L, Hct 25.2 L, MCV 92.0, MCH 29.9, MCHC 32.5, RDW Std Deviation 49.5 H, RDW Coeff of Tobi 15.1 H, Plt Count 256, MPV 9.8, Immature Gran % (Auto) 1.300 H, Neut % (Auto) 70.4 H, Lymph % (Auto) 13.9 L , [place] % (Auto) 10.9 H, Eos % (Auto) 3.3, Baso % (Auto) 0.2, Absolute Neuts (aut o) 6.8, Absolute Lymphs (auto) 1.34, Nucleated RBC % 0 12/15/21 04:44: Troponin I High Sens 2168 H* 12/15/21 06:44: POC Glucose 154 H Cardiology Labs/Tests 12/15/21 04:44: PT 22.0 H, INR 2.0 12/15/21 04:44: WBC 9.6, RBC 2.74 L, Hgb 8.2 L, Hct 25.2 L, MCV 92.0, MCH 29.9, MCHC 32.5, Plt Count 256, MPV 9.8, Immature Gran % (Auto) 1.300 H, Neut % (Auto) 70.4 H, Lymph % (Auto) 13.9 L, [place] % (Auto) 10.9 H, Eos % (Auto) 3.3, Baso % (Auto) 0.2, Absolute Neuts (auto) 6.8, Nucleated RBC % 0 Rhythm: Electronic ventricular paced rhythm; occasional PVC; repetitive PVCs in the form of a nonsustained ventricular tachycardia (approximately 3-4 beats) Cardiac Cath: 05-16-2021: [facility]: [place], [place] LAD: Proximal LAD: 100% stenosis First diagonal branch: 90% stenosis LCx: Proximal to distal LCx is 30% stenosis First OM: 30% stenosis RCA: Proximal to mid: 100% stenosis Right PDA: 85% stenosis ESQUIVEL to the LAD patent SVG to the first diagonal branch: Proximal: 100% stenosis SVG to the RCA: Patent Left ventricle: Inferior wall: Akinetic LVEF 40% Impression: CAD with essentially stable from previous cath. The modoc diagonal has high- grade disease filling retrograde and most likely reason for abnormal stress Recommendation: Medical therapy Per Kendrick Young MD Radiography Diagnostic Testing: Radiology Impression Echocardiogram 12/14/21 06:01 Interpretation Summary The study was technically difficult. Contrast injection was performed. Mildly dilated left ventricle. Moderate segmental systolic dysfunction (see wall motion). The estimated ejection fraction is 35 %. The left atrium is mildly enlarged. Stable appearing mechanical mitral valve apparatus. Trivial transvalvular insufficiency of the mitral valve. Mild eccentric tricuspid valve insufficiency. Mild aortic stenosis. Calcified aortic root. Unable to estimate RV systolic pressure/pulmonary artery pressure due to technically difficult study. Unable to assess diastolic dysfunction. ICD or pacer leads identified within the right atrium ICD or pacer leads identified within the right ventricle. Ordering Physician: Edmar Calderon Performed By: Vivian Genao RCS Physical Exam Const alert, oriented x3 and no apparent distress Orientation / Consciousness: awake HEENT normocephalic, head/scalp atraumatic and hearing grossly normal bilaterally Eyes PERRL, EOMs intact bilaterally, conjunctivae normal and no scleral icterus Neck full ROM, supple and no JVD Carotids: normal carotid upstroke Chest Chest: midline sternotomy incision Resp normal respiratory effort and clear to auscultation bilaterally Cardio regular rate, regular rhythm and S2 normal heart sound Heart Sounds: prosthetic sounds crisp prosthetic S1 GI normal to inspection, nondistended, normoactive bowel sounds Extremity no pedal edema Skin Skin Narrative: Right hip: ORIF site: Surgical dressing Psych mental status grossly normal Assessment & Plan Assessment/Plan (1) Non-ST elevation (NSTEMI) myocardial infarction: PLAN: The patient presents with cardiac enzymes compatible with a non-ST segment elevation HI. He does not complain of classic acute coronary syndrome symptoms with respect to chest discomfort, etc. It is unclear as to whether or not his altered mental status was related to concerns of an underlying cardiovascular condition versus a noncardiac condition being related to his use of narcotics as well as to his marked anemia. His ECG demonstrates an electronic ventricular paced rhythm. The echocardiogram was performed and reviewed. His estimated LVEF is approximately 35%. His previous cardiac catheterization is noted. At the moment he appears to be stable without acute symptoms. He will continue medical management as deemed appropriate. This will include reinitiation of his anticoagulant therapy. There are no plans for repeat seizure. There are no immediate plans for additional cardiac diagnostic studies/procedures at this time. (2) CAD (coronary artery disease): PLAN: The patient has a history of CAD. The details are unknown at this time. At the moment it appears his abnormal cardiac enzymes represent a type II event secondary to his marked anemia. At the moment he will continue his monitoring. He will continue medical therapy as deemed appropriate. (3) S/P CABG (coronary artery bypass graft): PLAN: The details of the patient's open heart surgery and CABG are unknown at this time. His previous cardiac catheterization performed at [facility] in [place], [place] reviewed. At the moment he is continuing medical management. (4) Ischemic cardiomyopathy: PLAN: The patient has a history of an underlying ischemic mediated cardiomyopathy. His [facility] echocardiogram is as noted. His echocardiogram was reviewed. His estimated LVEF was approximately 35%. He will continue medical therapy. (5) CHF (congestive heart failure): PLAN: The patient has a history of CHF which appears to be chronic systolic mediated. At the moment he appears stable without acute symptoms. He will need continued medical management. (6) Hx of mitral valve replacement: PLAN: He has a history of a mechanical mitral valve replacement. Again the details of his mechanical mitral valve are unknown at this time. His mitral valve apparatus. Stable on his transthoracic echocardiogram. He will continue AHA antibiotic prophylaxis. He will continue anticoagulant therapy. (7) Atrial fibrillation: PLAN: He states he has a history of atrial fibrillation. He has been on medical therapy which has included anticoagulant therapy. (8) History of cardiac defibrillator placement: PLAN: He has a history of an ICD. He states that is never discharged. He believes the generator may need to be changed in approximately 6 to 12 months. (9) Hyperlipemia: PLAN: He should continue risk factor evaluation and care as deemed appropriate. (10) S/P total right hip arthroplasty: PLAN: He is status post right hip ORIF. Apparently there have been concern of postoperative hemorrhage. There is concern this is led to his marked anemia requiring PRBC transfusions. He has been evaluated by orthopedic surgery. There are no plans for any repeat surgical procedures. (11) Acute anemia: PLAN: The patient has received PRBCs. His H&H has increased. This should benefit his oxygen carrying capacity and his cardiovascular status. (12) Altered mental status: PLAN: The patient's mental status appears to be improved since avoiding narcotic analgesic therapy and receiving his PRBCs. The patient will continue to be monitored. Addt'l Comments The patient's case was discussed and reviewed with the patient and Dr. Mayfield. This note was generated using a voice recognition system and there may be incorrect words, spelling or punctuation that were not noted when reviewing the office note prior to saving.
[2021-12-15 12:35] LABS: Bedside Glucose 224 mg/dL (74-106)
[2021-12-15] MEDS: Senna/Docusate Sodium 1 Tablet 2 TABLET PO (14:59)
[2021-12-15 16:56] LABS: Bedside Glucose 154 mg/dL (74-106)
[2021-12-15] MEDS: Losartan Potassium 100 MG Tablet PO (17:35)
[2021-12-15] MEDS: Lactulose 20 GM/30 ML UDC 30 GM PO ×2 (17:36→19:46)
[2021-12-15] MEDS: Atorvastatin Calcium 40 MG Tablet PO (21:55)
[2021-12-15 22:45] LABS: Bedside Glucose 203 mg/dL (74-106)
[2021-12-16] VITALS (8 sets, daily range): BP systolic 122–144; BP diastolic 47–60; PULSE 59–62; RESP 17–18; TEMP 36.3–36.8; O2SAT 94–100
[2021-12-16 05:49] LABS: Hematocrit 26.3 % (40-54); Hemoglobin 8.4 g/dL (13.0-16.5)
[2021-12-16 05:57] LABS: International Normalized Ratio 1.9; Prothrombin Time (Protime)PT. 21.6 SECONDS (11.7-14.9)
[2021-12-16] MEDS: oxyCODONE 5 MG Tablet PO ×2 (06:21→15:48)
[2021-12-16 06:22] LABS: Anion Gap 5 (5-15); BUN 22 mg/dL (7-18); BUN/Creat Ratio 21.2 RATIO (10-20); Calcium,Total 8.6 mg/dL (8.5-10.1); Chloride 107 mmol/L (98-107); Creatinine, Serum 1.04 mg/dL (0.70-1.30); EST Glomerular Filtration Rate 73 mL/min (>60); Est Glom Filt Rate - Afr Amer 88 mL/min (>60); Estimated Creatinine Clearance 42.61 ml/min; Glucose 128 mg/dL (74-106); Magnesium 2.2 mg/dL (1.6-2.6); Potassium 4.5 mmol/L (3.5-5.1); Sodium Level 138 mmol/L (136-145)
[2021-12-16] MEDS: Levothyroxine 112 MCG Tablet PO (06:22)
[2021-12-16] MEDS: Acetaminophen 500 MG Tablet 1000 MG PO ×2 (06:25→12:57)
[2021-12-16] MEDS: Insulin Lispro 100 UNIT/ML INSULN.PEN SC ×3 (06:42→15:50)
[2021-12-16 07:05] LABS: Bedside Glucose 159 mg/dL (74-106)
[2021-12-16] MEDS: Furosemide 20 MG Tablet PO (07:59)
[2021-12-16] MEDS: Aspirin 81 MG TAB.CHEW PO (07:59)
[2021-12-16] MEDS: amLODIPine 10 MG Tablet PO (08:00)
[2021-12-16] MEDS: Metoprolol Tartrate 25 MG Tablet PO (08:00)
[2021-12-16] MEDS: Finasteride 5 MG Tablet PO (08:01)
[2021-12-16] MEDS: Glucerna Shake 120 ML LIQUID PO ×2 (08:03→11:23)
--- NOTE | 2021-12-16 08:39 | CASEMGMT ---
CRESENCIO reviewed chart and noted patient and family are interested in [facility]. SW checked in with patient and confirmed the plan is [facility]. CRESENCIO notified Mary Lou d/c capacity planning engineer and she will work on referral. Plan: SNF pending facility acceptance. Luz VICTORIA
--- NOTE | 2021-12-16 08:52 | CASEMGMT ---
Discharge Office Administrative Assistant Mary Lou soares/margy called [facility] and left a message to see if beds are available. Mary Lou called [facility] and beds are available. Mary Lou spoke with Jumana the patients and Jumana second choice for her would be [facility]. Mary Lou sent referral to Karyna at the [facility]. Will follow up. Plan: [facility] vs [facility], Waiting Acceptance. Mary Lou Rivera Discharge Office Administrative Assistant
--- NOTE | 2021-12-16 09:40 | PN.CARD_ITS ---
Subjective Subjective The patient is awake and alert. He denies any chest discomfort, difficulty breathing, or palpitations. He states his AICD has not discharged. Objective Data Vital Signs: Vital Signs Temp Pulse Resp BP Pulse Ox O2 Del Method O2 Flow Rate 97.4 F L 60 18 141/47 H 100 Nasal Cannula 3 12/16/21 08:54 12/16/21 08:54 12/16/21 08:54 12/16/21 08:54 12/16/21 08:54 12/16/21 08:54 12/16/21 08:54 Oxygen Flow Rate (L/min) 3 Oxygen Delivery Method Nasal Cannula Weight: 201 lb 11.567 oz Body Mass Index (BMI) 38.2 Intake & Output: Intake and Output for Last 24 Hours 12/14/21 12/15/21 12/16/21 23:59 23:59 23:59 Intake Total 1830 / 2130 1650 / 1650 Output Total 3000 / 3000 Balance -1170 / -870 1650 / 1650 Lab / Micro Data Result Diagrams: 12/16/21 04:23 12/16/21 04:23 Labs: Laboratory Results - last 24 hr 12/15/21 11:47: POC Glucose 224 H 12/15/21 16:27: POC Glucose 154 H 12/15/21 21:58: POC Glucose 203 H 12/16/21 04:23: PT 21.6 H, INR 1.9 12/16/21 04:23: Hgb 8.4 L, Hct 26.3 L 12/16/21 04:23: Sodium 138, Potassium 4.5, Chloride 107, Carbon Dioxide 26.0, Anion Gap 5, BUN 22 H, Creatinine 1.04, Estim Creat Clear Calc 42.61, Est GFR (MDRD) Af Amer 88, Est GFR (MDRD) Non-Af 73, BUN/Creatinine Ratio 21.2 H, Glucose 128 H, Calcium 8.6, Magnesium 2.2 12/16/21 06:40: POC Glucose 159 H Micro: Microbiology 12/13/21 17:42 Blood Culture (Wb) - Anticubital Left Blood Culture - Prelim inary No growth in 48 hours. 12/13/21 17:38 Blood Culture (Wb) - Anticubital Right Blood Culture - Preliminary No growth in 48 hours. Cardiology Labs/Tests 12/16/21 04:23: PT 21.6 H, INR 1.9 12/16/21 04:23: Hgb 8.4 L, Hct 26.3 L 12/16/21 04:23: Sodium 138, Potassium 4.5, Chloride 107, Carbon Dioxide 26.0, Anion Gap 5, BUN 22 H, Creatinine 1.04, Est GFR (MDRD) Af Amer 88, Est GFR (MDRD) Non-Af 73, BUN/Creatinine Ratio 21.2 H, Glucose 128 H, Calcium 8.6, Magnesium 2.2 Rhythm: Sinus rhythm; episodes appearing compatible with nonsustained VT Physical Exam Const alert, oriented x3 and no apparent distress Orientation / Consciousness: awake HEENT normocephalic, head/scalp atraumatic and hearing grossly normal bilaterally Eyes PERRL, EOMs intact bilaterally, conjunctivae normal and no scleral icterus Neck full ROM, supple and no JVD Carotids: normal carotid upstroke Chest Chest: midline sternotomy incision Resp normal respiratory effort and clear to auscultation bilaterally Cardio regular rate, regular rhythm and S2 normal heart sound Heart Sounds: prosthetic sounds crisp prosthetic S1 GI normal to inspection, nondistended, normoactive bowel sounds Extremity no pedal edema Skin Skin Narrative: Right hip: ORIF site: Surgical dressing Psych mental status grossly normal Assessment & Plan Assessment/Plan (1) Non-ST elevation (NSTEMI) myocardial infarction: PLAN: The patient presents with cardiac enzymes compatible with a non-ST segment elevation [place]. He does not complain of classic acute coronary syndrome symptoms with respect to chest discomfort, etc. It is unclear as to whether or not his altered mental status was related to concerns of an underlying cardiovascular condition versus a noncardiac condition being related to his use of narcotics as well as to his marked anemia. His ECG demonstrates an electronic ventricular paced rhythm. The echocardiogram was performed and reviewed. His estimated LVEF is approximately 35%. His previous cardiac catheterization is noted. At the moment he appears to be stable without acute symptoms. He will continue medical management as deemed appropriate. This will include reinitiation of his anticoagulant therapy. There are no plans for repeat seizure. There are no immediate plans for additional cardiac diagnostic studies/procedures at this time. (2) CAD (coronary artery disease): PLAN: The patient has a history of CAD. The details are unknown at this time. At the moment it appears his abnormal cardiac enzymes represent a type II event secondary to his marked anemia. At the moment he will continue his monitoring. He will continue medical therapy as deemed appropriate. (3) S/P CABG (coronary artery bypass graft): PLAN: The details of the patient's open heart surgery and CABG are unknown at this time. His previous cardiac catheterization performed at [facility] in [place], [place] reviewed. At the moment he is continuing medical management. (4) Ischemic cardiomyopathy: PLAN: The patient has a history of an underlying ischemic mediated cardiomyopathy. His [facility] echocardiogram is as noted. His echocardiogram was reviewed. His estimated LVEF was approximately 35%. He will continue medical therapy. (5) CHF (congestive heart failure): PLAN: The patient has a history of CHF which appears to be chronic systolic mediated. At the moment he appears stable without acute symptoms. He will need continued medical management. (6) Hx of mitral valve replacement: PLAN: He has a history of a mechanical mitral valve replacement. Again the details of his mechanical mitral valve are unknown at this time. His mitral valve apparatus. Stable on his transthoracic echocardiogram. He will continue AHA antibiotic prophylaxis. He will continue anticoagulant therapy. (7) Atrial fibrillation: PLAN: He states he has a history of atrial fibrillation. He has been on medical therapy which has included anticoagulant therapy. 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 The patient states that he had been on antiarrhythmic therapy with amiodarone. He states it has been discontinue for reasons that he does not recall other than whether there was any interaction with his thyroid hormone levels as he is now on a thyroid supplement. I request has been made to have his device interrogated. Depending upon his findings he may or may not need to be reconsidered to be placed back on antiarrhythmic therapy which could include restarting his amiodarone therapy based upon his history of underlying CAD, ischemic cardiomyopathy, and diminished LV systolic function, etc. (9) History of cardiac defibrillator placement: PLAN: He has a history of an ICD. He states that is never discharged. He believes the generator may need to be changed in approximately 6 to 12 months. (10) Hyperlipemia: PLAN: He should continue risk factor evaluation and care as deemed appropriate. (11) S/P total right hip arthroplasty: PLAN: He is status post right hip ORIF. Apparently there have been concern of postoperative hemorrhage. There is concern this is led to his marked anemia requiring PRBC transfusions. He has been evaluated by orthopedic surgery. There are no plans for any repeat surgical procedures. (12) Acute anemia: PLAN: The patient has received PRBCs. His H&H has increased. This should benefit his oxygen carrying capacity and his cardiovascular status. (13) Altered mental status: PLAN: The patient's mental status appears to be improved since avoiding narcotic analgesic therapy and receiving his PRBCs. The patient will continue to be monitored. Addt'l Comments The patient's case was discussed and reviewed with patient and Dr. Mayfield. This note was generated using a voice recognition system and there may be incorrect words, spelling or punctuation that were not noted when reviewing the office note prior to saving.
--- NOTE | 2021-12-16 10:41 | CASEMGMT ---
Discharge Licensing Court Magistrate Mary Lou d/c records management assistant received a call from Karyna at [facility]. Karyna can accept patient and patient can go to [facility] when medically ready. Mary Lou spoke with Jumana and Jumana is agreeable for patient to go to [facility]. Plan: [facility] Mary Lou Rivera Discharge Licensing Court Magistrate
--- NOTE | 2021-12-16 11:04 | PCM.TXEXTCAR ---
Diet Diet Order/Speech Therapy: 12/13/21 21:46 Diet: Regular - General Food consistency:: Regular Liquid Consistency:: Regular/Thin Is pt able to select menu?: Yes Routine Orders/Code Status O2 Liters per Minute: 3 O2 Frequency: Continuous Routine Lab Work: CBC (in one week), INR (daily times 3 days, then weekly) and - (Fingerstick blood sugars AC nightly, Humalog subcu per sliding scale: 200-250: 5 units, 251-300: 8 units, 301-350: 12 units, 351-400: 15 units) Code Status: DNRCC-A (no intubation) Wound(s) right hip: Wound Type: Surgical Incision Therapies Weight Bearing: Full weight bearing Physical Therapy: Eval and Treat Occupational Therapy: Eval and Treat Problem/Diagnosis (1) Non-ST elevation (NSTEMI) myocardial infarction: Status: Acute Code(s): I21.4 - Non-ST elevation (NSTEMI) myocardial infarction (2) CAD (coronary artery disease): Status: Acute Code(s): I25.10 - Atherosclerotic heart disease of [place] coronary artery without angina pectoris (3) S/P CABG (coronary artery bypass graft): Status: Acute Code(s): Z95.1 - Presence of aortocoronary bypass graft (4) Ischemic cardiomyopathy: Status: Chronic Code(s): I25.5 - Ischemic cardiomyopathy Comment: EF 20% (5) CHF (congestive heart failure): Status: Acute Code(s): I50.9 - Heart failure, unspecified (6) Hx of mitral valve replacement: Status: Acute Code(s): Z95.2 - Presence of prosthetic heart valve (7) Atrial fibrillation: Status: Acute Code(s): I48.91 - Unspecified atrial fibrillation (8) Paroxysmal ventricular tachycardia: Status: Acute Code(s): I47.2 - Ventricular tachycardia (9) History of cardiac defibrillator placement: Status: Acute Code(s): Z95.810 - Presence of automatic (implantable) cardiac defibrillator (10) Hyperlipemia: Status: Acute Code(s): E78.5 - Hyperlipidemia, unspecified (11) S/P total right hip arthroplasty: Status: Acute Code(s): Z96.641 - Presence of right artificial hip joint (12) Acute anemia: Status: Acute Code(s): D64.9 - Anemia, unspecified (13) Altered mental status: Status: Acute Code(s): R41.82 - Altered mental status, unspecified Plan 1. Acute encephalopathy-etiology unclear-resolved at this time, possibly secondary to medication reaction #2 [id number] echocardiogram showed a 35% EF which is similar to the patient's EF on his last cardiac catheterization according to cardiology. Cardiology is participating in his care, there is no intervention planned on the patient at this time. #3 acute blood loss anemia-probably secondary to recent hip replacement surgery-according to orthopedic surgery, there is no signs of active bleeding at this time from the surgical site on his right hip. Patient's hemoglobin is stable. #4 lactic acidosis-etiology unclear, patient does not appear to be septic #5 ischemic cardiomyopathy-patient will remain on his current medications, he is being followed by cardiology #6 use of chronic anticoagulation secondary to mechanical mitral valve-patient's warfarin will be restarted tomorrow, INR this morning was 2 #7 hyperlipidemia-patient is on atorvastatin #8 essential hypertension-patient will remain on his present blood pressure medications #9 hypothyroidism-patient is on Synthroid #10 paroxysmal atrial fibrillation-patient is currently on rate limiting medication and Cordarone #11 chronic systolic congestive heart failure-continue present medications #12 chronic hypoxic respiratory failure-patient is currently on 3 L nasal cannula while sleeping #13 acute debility-patient will need temporary placement in senior living facility/rehab unit, case management will be working on placement tomorrow #14 mechanical mitral valve-patient's warfarin will be restarted today Allergies/Procedures Done in Hospital Allergies celecoxib [From Celebrex] Allergy (Verified 12/13/21 17:00) Hives Sulfa (Sulfonamide Antibiotics) Allergy (Verified 12/13/21 17:00) Hives Procedures: 2-D Echocardiogram Type of Care/Length of Stay Estimated LOS: Convalescent Care Less Than 30 days Type of Care Needed: Skilled Rehab Potential: Good Prognosis: Good Additional Orders/Day of Discharge Day of Discharge: 12/16/21 Dietary and Speech Recommendations Dietitian Recommendations/Changes: Will continue liberal regular diet - once consistently improved rec cho controlled diet d/t hx diabetes Will order 4 oz glucerna shake 4x/day w/ medpass for increased nutrition if consumed. Discharge Plan Admission Admit Date/Time: 12/13/21 19:29 Primary Reason for Your Visit: NSTEMI, anemia Attending Provider: Saman Mayfield Primary Care Provider: Jordan Monroy Consulting Providers: Kartik Tovar ; Myron Brito ; Edmar Calderon Discharge Orders/Prescriptions Prescriptions: New nitroglycerin 0.4 mg Tablet, Sublingual 0.4 mg sublingual Q5M PRN (Reason: Cardiac/Chest Pain) Qty: 1 0RF oxycodone 5 mg Tablet 5 mg PO Q4H PRN PRN (Reason: Pain Score 4-10) 5 Days Qty: 12 0RF sennosides-docusate sodium [Stool Softener-Stimulant Laxat] 8.6-50 mg Tablet 2 tab PO BID PRN PRN (Reason: Constipation) Qty: 0 0RF warfarin [Jantoven] 5 mg Tablet 5 mg PO DINNER Qty: 0 0RF Rx Instructions: start on 12/16/21 Continued levothyroxine [Synthroid] 112 mcg tablet 112 mcg PO DAILY amlodipine 10 MG tablet 10 mg PO DAILY aspirin 81 MG tablet,chewable 81 mg PO DAILY@0800 Label Comments: stop 5 days preop finasteride 5 MG tablet 5 mg PO DAILY warfarin 5 MG tablet 5 mg PO DAILY Label Comments: LAST DOSE 12/03/21 metoprolol tartrate 25 MG tablet 25 mg PO DAILY losartan 100 MG tablet 100 mg PO 1700 albuterol sulfate 90 mcg/actuation HFA aerosol inhaler 2 puff INHALATION PRN PRN (Reason: Congestion) acetaminophen 500 mg Tablet 1,000 mg PO Q8 30 Days Qty: 180 0RF atorvastatin 40 mg tablet 40 mg PO DAILY furosemide 20 mg tablet 20 mg PO DAILY Label Comments: take 1 tablet by mouth once daily and if needed for WEIGHT GAIN OR EDEMA vit C-vit [id number] Capsule 1 cap PO DAILY dutasteride 0.5 mg Capsule 0.5 mg PO DAILY Discontinued warfarin 2.5 MG tablet 2.5 mg PO THSA Label Comments: LAST DOSE 12/03/21 metformin 500 mg tablet extended release 24 hr 2 tab PO BID enoxaparin 80 mg/0.8 mL syringe 0.8 ml subcut BID Label Comments: inject subcutaneously every 12 hours as directed by prescriber oxycodone 5 mg Tablet 5 - 10 mg PO Q4H PRN PRN (Reason: Pain Score 4-10) 7 Days Qty: 56 0RF ondansetron 4 mg tablet,disintegrating 4 mg PO Q6H PRN (Reason: nausea and vomiting) Qty: 10 0RF Referrals / Follow Up: Jordan Monroy MD [Primary Care Provider] - Disposition Disposition (needs filled in before D/C Order can be placed): Assisted Facility
[2021-12-16 12:15] LABS: Bedside Glucose 173 mg/dL (74-106)
--- NOTE | 2021-12-16 12:35 | PCM.DC.SUM ---
Providers Date of Admission: 12/13/21 Date of Discharge: 12/16/21 Primary Care Physician: Dr. Jordan Monroy MD Consultations 12/14/21 05:57 Consult: Cardiology Routine Consulting Provider: Kartik Tovar Reason for Consult: High troponin from demand ischemia EMERGENT Consult: No Notified: Yes Date Notified: 12/14/21 Time Notified: 06:00 Method of Notification: Verbal Comments:: Discussed with Dr Torres Consult: Orthopedics Routine Consulting Provider: Myron Brito Reason for Consult: LEFT HIP surgical bleed EMERGENT Consult: No Notified: Yes Date Notified: 12/13/21 Time Notified: 09:00 Method of Notification: ED Physician Initiated Reason For Visit: AMS Diagnosis Discharge Diagnosis (1) Non-ST elevation (NSTEMI) myocardial infarction: Status: Acute Code(s): I21.4 - Non-ST elevation (NSTEMI) myocardial infarction (2) CAD (coronary artery disease): Status: Acute Code(s): I25.10 - Atherosclerotic heart disease of [place] coronary artery without angina pectoris (3) S/P CABG (coronary artery bypass graft): Status: Acute Code(s): Z95.1 - Presence of aortocoronary bypass graft (4) Ischemic cardiomyopathy: Status: Chronic Code(s): I25.5 - Ischemic cardiomyopathy (5) CHF (congestive heart failure): Status: Acute Code(s): I50.9 - Heart failure, unspecified (6) Hx of mitral valve replacement: Status: Acute Code(s): Z95.2 - Presence of prosthetic heart valve (7) Atrial fibrillation: Status: Acute Code(s): I48.91 - Unspecified atrial fibrillation (8) Paroxysmal ventricular tachycardia: Status: Acute Code(s): I47.2 - Ventricular tachycardia (9) History of cardiac defibrillator placement: Status: Acute Code(s): Z95.810 - Presence of automatic (implantable) cardiac defibrillator (10) Hyperlipemia: Status: Acute Code(s): E78.5 - Hyperlipidemia, unspecified (11) S/P total right hip arthroplasty: Status: Acute Code(s): Z96.641 - Presence of right artificial hip joint (12) Acute anemia: Status: Acute Code(s): D64.9 - Anemia, unspecified (13) Altered mental status: Status: Acute Code(s): R41.82 - Altered mental status, unspecified Plan 1. Acute encephalopathy-etiology unclear-resolved at this time, possibly secondary to medication reaction #2 [id number]-zyhwaty's echocardiogram showed a 35% EF which is similar to the patient's EF on his last cardiac catheterization according to cardiology. Cardiology is participating in his care, there is no intervention planned on the patient at this time. #3 acute blood loss anemia-probably secondary to recent hip replacement surgery-according to orthopedic surgery, there is no signs of active bleeding at this time from the surgical site on his right hip. Patient's hemoglobin is stable. #4 lactic acidosis-etiology unclear, patient does not appear to be septic #5 ischemic cardiomyopathy-patient will remain on his current medications, he is being followed by cardiology #6 use of chronic anticoagulation secondary to mechanical mitral valve-patient's warfarin will be restarted tomorrow, INR this morning was 2 #7 hyperlipidemia-patient is on atorvastatin #8 essential hypertension-patient will remain on his present blood pressure medications #9 hypothyroidism-patient is on Synthroid #10 paroxysmal atrial fibrillation-patient is currently on rate limiting medication and Cordarone #11 chronic systolic congestive heart failure-continue present medications #12 chronic hypoxic respiratory failure-patient is currently on 3 L nasal cannula while sleeping #13 acute debility-patient will need temporary placement in shelter facility/rehab unit, case management will be working on placement tomorrow #14 mechanical mitral valve-patient's warfarin will be restarted today Medications at Discharge Home Medications amlodipine 10 mg tablet 10 mg PO DAILY bp 03/31/14 aspirin 81 mg chewable tablet 81 mg PO DAILY@0800 heart 03/31/14 levothyroxine 112 mcg tablet (Synthroid) 112 mcg PO DAILY thyroid 02/04/19 finasteride 5 mg tablet 5 mg PO DAILY prostate 03/22/20 losartan 100 mg tablet 100 mg PO 1700 heart 03/22/20 metoprolol tartrate 25 mg tablet 25 mg PO DAILY heart 03/22/20 warfarin 5 mg tablet 5 mg PO DAILY blood thinner 03/22/20 albuterol sulfate 90 mcg/actuation aerosol inhaler 2 puff inhalation PRN PRN Congestion 11/15/21 acetaminophen 500 mg tablet 1,000 mg PO Q8 30 days #180 tabs 12/10/21 atorvastatin 40 mg tablet 40 mg PO DAILY CHOLESTEROL 12/13/21 dutasteride 0.5 mg capsule 0.5 mg PO DAILY PROSTATE 12/13/21 furosemide 20 mg tablet 20 mg PO DAILY WT GAIN 12/13/21 vit C-vit X-txdyms-bwlxptca capsule 1 cap PO DAILY EYE VITAMIN 12/13/21 nitroglycerin 0.4 mg sublingual tablet 0.4 mg sublingual Q5M PRN Cardiac/Chest Pain #1 TAB 12/16/21 oxycodone 5 mg tablet 5 mg PO Q4H PRN PRN Pain Score 4-10 5 days #12 tabs 12/16/21 sennosides 8.6 mg-docusate sodium 50 mg tablet (Stool Softener-Stimulant Laxative) 2 tab PO BID PRN PRN Constipation #0 tabs 12/16/21 warfarin 5 mg tablet (Jantoven) 5 mg PO DINNER #0 tabs 12/16/21 Hospital Course Operations None Procedures 2-D Echocardiogram Summary of Care Provided Minutes Spent on Discharge: 32 Hospital Course: This 81-year-old white male was brought to the emergency room at [facility] for evaluation of confusion and agitation, patient recently had a right hip replacement performed as an outpatient, he was seen in follow-up for some bleeding from his hip surgery wound but according to the family this bleeding had stopped. Patient was noted to be confused in the emergency room, but he was awake and alert. Labs obtained showed an elevated white blood cell count at 16.4, hemoglobin was low at 6.2, patient's potassium was slightly elevated at 5.4, creatinine was 1.49, BUN was 41, glucose was 204, and troponin was 1632. EKG showed a ventricularly paced rhythm, chest x-ray showed cardiomegaly, CT of the brain showed no acute pathology. Patient was admitted to PCU for non-STEMI, he was seen in consultation by cardiology, serial cardiac enzymes were obtained, and he underwent an echocardiogram which showed an ejection fraction of 35% which was similar to his ejection fraction on his recent cardiac catheterization in [place] according to cardiology. Patient's mental status improved, he was given 2 units of packed red blood cells and his hemoglobin was monitored and there appeared to be no active bleeding noted. He was seen in consultation by orthopedic surgery who did not feel that his right hip surgery wound needed to be explored, they felt that the blood loss the patient exhibited was probably postop as an outpatient. Patient was seen by PT and OT. Family requested patient go to a skilled care facility for inpatient rehab services and the patient also agreed. Patient had his ICD interrogated while in the hospital, according to cardiology, it showed no serious cardiac events, there was an episode of what appeared to be atrial fib noted however. Patient's Coumadin was restarted during his hospitalization after being held. On 12/16/2021, patient was seen and examined: On examination he appeared in good health and spirits. Vital signs as documented. Skin warm and dry and without overt rashes. Neck without JVD, neck was supple, trachea midline, thyroid was normal. Lungs clear bilaterally, normal air movement was noted. Heart exam notable for regular rhythm-paced, normal sounds and absence of murmurs, rubs or gallops. Abdomen unremarkable and without evidence of organomegaly, masses, or abdominal aortic enlargement. Bowel sounds are present, abdomen is not distended. Extremities nonedematous, no cyanosis was noted, no clubbing was noted. Neuro: Cranial nerves II through XII are grossly intact, no focal motor deficits were noted, sensation to light touch and pinprick intact, motor exam 5/5 throughout. Psych: Patient is alert and oriented x3, he does not appear anxious or depressed, he does not appear agitated. On 12/16/2021, patient was seen and examined and felt to be stable for discharge to a local extended care facility in [facility] for rehab services. Weight / BMI Weight Weight: 91.5 kg Body Mass Index (BMI) 38.2 ABG / Lab / Microbiology Data Result Diagrams: 12/16/21 04:23 12/16/21 04:23 Laboratory: Laboratory Results - last 24 hr 12/15/21 11:47: POC Glucose 224 H 12/15/21 16:27: POC Glucose 154 H 12/15/21 21:58: POC Glucose 203 H 12/16/21 04:23: PT 21.6 H, INR 1.9 12/16/21 04:23: Hgb 8.4 L, Hct 26.3 L 12/16/21 04:23: Sodium 138, Potassium 4.5, Chloride 107, Carbon Dioxide 26.0, Anion Gap 5, BUN 22 H, Creatinine 1.04, Estim Creat Clear Calc 42.61, Est GFR (MDRD) Af Amer 88, Est GFR (MDRD) Non-Af 73, BUN/Creatinine Ratio 21.2 H, Glucose 128 H, Calcium 8.6, Magnesium 2.2 12/16/21 06:40: POC Glucose 159 H 12/16/21 11:20: POC Glucose 173 H Microbiology: Microbiology 12/16/21 11:15 Nasal Secretion SARS-CoV-2 Antigen (Rapid) - Final 12/13/21 17:42 Blood Culture (Wb) - Anticubital Left Blood Culture - Preliminary No growth in 48 hours. 12/13/21 17:38 Blood Culture (Wb) - Anticubital Right Blood Culture - Preliminary No growth in 48 hours. 12/13/21 17:37 Nasal Secretion SARS-CoV-2 & FLU Antigen (Rapid) - Final Meaningful Use Info Meaningful Use Diagnoses (Choose all that apply): AMI AMI/Post PCI/Angioplasty Aspirin given w/in 24hrs of arrival?: Yes ASA at discharge?: Yes Antiplatelet Therapy at Discharge:: No Reason Antiplatelet Therapy not ordered:: not indicated Statins at discharge?: Yes Brennan/ARB at discharge?: Yes Beta [place] at discharge?: Yes Done w/ Acute FL measure.: Yes Documented LVEF (%): 35 Discharge Plan Admission Admit Date/Time: 12/13/21 19:29 Primary Reason for Your Visit: NSTEMI, anemia Attending Provider: Saman Mayfield Primary Care Provider: Jordan Monroy Consulting Providers: Kartik Tovar ; Myron Brito ; Edmar Calderon Discharge Orders/Prescriptions Prescriptions: New nitroglycerin 0.4 mg Tablet, Sublingual 0.4 mg sublingual Q5M PRN (Reason: Cardiac/Chest Pain) Qty: 1 0RF oxycodone 5 mg Tablet 5 mg PO Q4H PRN PRN (Reason: Pain Score 4-10) 5 Days Qty: 12 0RF sennosides-docusate sodium [Stool Softener-Stimulant Laxat] 8.6-50 mg Tablet 2 tab PO BID PRN PRN (Reason: Constipation) Qty: 0 0RF warfarin [Jantoven] 5 mg Tablet 5 mg PO DINNER Qty: 0 0RF Rx Instructions: start on 12/16/21 Continued levothyroxine [Synthroid] 112 mcg tablet 112 mcg PO DAILY amlodipine 10 MG tablet 10 mg PO DAILY aspirin 81 MG tablet,chewable 81 mg PO DAILY@0800 Label Comments: stop 5 days preop finasteride 5 MG tablet 5 mg PO DAILY warfarin 5 MG tablet 5 mg PO DAILY Label Comments: LAST DOSE 12/03/21 metoprolol tartrate 25 MG tablet 25 mg PO DAILY losartan 100 MG tablet 100 mg PO 1700 albuterol sulfate 90 mcg/actuation HFA aerosol inhaler 2 puff INHALATION PRN PRN (Reason: Congestion) acetaminophen 500 mg Tablet 1,000 mg PO Q8 30 Days Qty: 180 0RF atorvastatin 40 mg tablet 40 mg PO DAILY furosemide 20 mg tablet 20 mg PO DAILY Label Comments: take 1 tablet by mouth once daily and if needed for WEIGHT GAIN OR EDEMA vit C-vit V-irxuym-zxeuhdka Capsule 1 cap PO DAILY dutasteride 0.5 mg Capsule 0.5 mg PO DAILY Discontinued warfarin 2.5 MG tablet 2.5 mg PO THSA Label Comments: LAST DOSE 12/03/21 metformin 500 mg tablet extended release 24 hr 2 tab PO BID enoxaparin 80 mg/0.8 mL syringe 0.8 ml subcut BID Label Comments: inject subcutaneously every 12 hours as directed by prescriber oxycodone 5 mg Tablet 5 - 10 mg PO Q4H PRN PRN (Reason: Pain Score 4-10) 7 Days Qty: 56 0RF ondansetron 4 mg tablet,disintegrating 4 mg PO Q6H PRN (Reason: nausea and vomiting) Qty: 10 0RF Referrals / Follow Up: Jordan Monroy MD [Primary Care Provider] - Disposition Disposition (needs filled in before D/C Order can be placed): Group Home Facility Charges/Coding Visit Charges Inpatient E&M: 88397 Disch Hosp
--- NOTE | 2021-12-16 13:32 | CASEMGMT ---
Patient is ready for discharge to [facility]. CRESENCIO completed a convalescent in [facility]. CRESENCIO arranged for patient to get picked up at 1630 via wc van by [facility]. CRESENCIO faxed orders, COVID test, and picket labor union time to [facility]. CRESENCIO notified patient, RN, [facility], and left a message for patient's . All in agreement with discharge plan. Plan: d/c to [facility] under skilled level of care on a 7000. [facility] transported via wc van. Luz May DIRECTOR OF SALES MARKETINGDavy VICTORIA
[2021-12-16 17:16] LABS: Bedside Glucose 170 mg/dL (74-106)
== END 2021-12-16 16:47 | DRG 280 ==
LOC: ED 19:44 → PCU 20:02
PROVIDERS: Internal Medicine; Internal Medicine Cardiovascular Disease; Admitting Provider Family Medicine; Emergency Provider Emergency Medicine; PCP Family Medicine; Visit Provider Internal Medicine
DX: I21.4 Non-ST elevation (NSTEMI) myocardial infarction (principal); G92.8 Other toxic encephalopathy; E87.2 Acidosis; D62 Acute posthemorrhagic anemia; I50.22 Chronic systolic (congestive) heart failure; J96.11 Chronic respiratory failure with hypoxia; I47.2 Ventricular tachycardia; I27.20 Pulmonary hypertension, unspecified; D63.8 Anemia in other chronic diseases classified elsewhere; I48.0 Paroxysmal atrial fibrillation; I11.0 Hypertensive heart disease with heart failure; I24.8 Other forms of acute ischemic heart disease; E11.9 Type 2 diabetes mellitus without complications; I25.5 Ischemic cardiomyopathy; E78.5 Hyperlipidemia, unspecified; E78.00 Pure hypercholesterolemia, unspecified; E03.9 Hypothyroidism, unspecified; Z51.5 Encounter for palliative care; Z87.891 Personal history of nicotine dependence; Z79.01 Long term (current) use of anticoagulants; Z79.84 Long term (current) use of oral hypoglycemic drugs; R53.81 Other malaise; Z66 Do not resuscitate; Z79.1 Long term (current) use of non-steroidal anti-inflammatories (NSAID); Z79.82 Long term (current) use of aspirin; Z95.810 Presence of automatic (implantable) cardiac defibrillator; Z95.1 Presence of aortocoronary bypass graft; Z95.2 Presence of prosthetic heart valve; Z96.641 Presence of right artificial hip joint
CPT/HCPCS: 36415; 70450; 71045; 73502; 80048; 80053; 81001; 82962; 83605; 83735; 84484; 85014; 85018; 85025; 85027; 85610; 86850; 86900; 86901; 86920; 86922; 87040; 87426; 87428; 88305; 88311; 93005; 93306; 94762; 96361; 96365; 96366; 96372; 97110; 97116; 97162; 97165; 97166; 97530; 97535; 97802; 99218; 99251; 99285; C1776; J7120; P9016; Q9957; A4216; C8929; G0378; G0463; J3475

== ENCOUNTER → 2022-02-25 | Outpatient (CLI) | payer MEDICARE, BC, SELFPAY ==
[2022-02-25 13:18] LABS: Absolute Lymphocyte Count 1.15 X10^3/uL (0.83-4.51); Basophil# 0.02 X10^3/uL; Basophil% 0.2 % (0-1); Eosinophil# 0.25 X10^3/uL; Eosinophils% 2.2 % (0-5); Hematocrit 32.3 % (40-54); Hemoglobin 10.1 g/dL (13.0-16.5); Lymphocyte # 1.15 X10^3/ul (0.83-4.51); Lymphocyte % 10.1 % (19-41); Mean Corp Hgb Conc 31.3 g/dL (32-36); Mean Corpuscular Hgb 29.1 pg (27.0-32.0); Mean Corpuscular Volume 93.1 fL (80-94); Mean Platelet Vol. 9.2 fl (6.2-12.0); Monocyte# 0.99 X10^3/uL; Monocyte% 8.7 % (0-10); NRBC Flagged by Analyzer 0 % (0-5); Neutrophil # 8.97 X10^3/uL (2.7-7.7); Neutrophil % 78.3 % (47-70); Platelet Count 303 K/mm3 (150-450); RBC Distribution Width CV 14.1 % (11.6-14.6); RBC Distribution Width SD 47.9 fl (35.1-43.9); Red Blood Count 3.47 M/mm3 (4.6-6.2); White Blood Count 11.4 K/mm3 (4.4-11.0)
[2022-02-25 13:41] LABS: CRP 9.34 mg/L (0.0-3.0)
[2022-02-25 14:21] LABS: Erythrocyte Sedimentation Rate 53 mm/hr (0-20)
== END | disposition home or self-care (01) ==
PROVIDERS: PCP Family Medicine; Referring Provider Orthopaedic Surgery; Visit Provider Orthopaedic Surgery
DX: Z96.641 Presence of right artificial hip joint (principal)
CPT/HCPCS: 36415; 85025; 85652; 86140

== ENCOUNTER 2022-07-25 23:52 | Emergency (ER) | payer MEDICARE, BC, SELFPAY ==
[2022-07-25 23:53] VITALS: BP 157/67; PULSE 86; RESP 21; TEMP 39; O2SAT 97; BMI 32.1
[2022-07-26] VITALS: PULSE 60; RESP 18; O2SAT 95
[2022-07-26 00:02] VITALS: O2SAT 97
--- NOTE | 2022-07-26 00:58 | EDS_ITS ---
HPI History of Present Illness Chief Complaint: Cold Sx Informant: patient Onset/Context/Timing Onset: Today Context: Sudden Onset Timing: Waxes and wanes Quality: Congested Location: Chest and upper airway Worsened by: Nothing Relieved by: Nothing Narrative Narrative: Patient presents with shortness of breath that began tonight. Patient states it began rather suddenly. Patient states his was recently diagnosed with COVID-19. Patient states his breathing has been waxing and waning throughout the night. Patient states nothing makes it better nothing makes it worse. Patient states that it got better when the squad picked him up. Patient states it is gotten a little bit worse since he has been in the emergency department. Patient admits to some subjective chills but denies any fevers. Patient midst to some rhinorrhea. Patient admits to a mild cough. [facility] Medical History Ambulates with cane Anemia Arthritis CAD (coronary artery disease) Cancer Cardiology follow-up encounter Chest pain Chronic cough Congestive heart failure (CHF) CPAP (continuous positive airway pressure) dependence Diabetes Easy bruising Excessive bleeding Fatigue Former smoker Heart attack Heart disease High cholesterol Hip replacement planned History of atrial fibrillation History of CHF (congestive heart failure) History of edema History of heart attack History of pain when walking History of stress test Hx of bladder cancer Hyperlipemia ICD (implantable cardioverter-defibrillator) in place Ischemic cardiomyopathy Nausea On home oxygen therapy Osteoarthritis of left knee Pacemaker Screening for intestinal cancer Shortness of breath on exertion Sleep apnea Sleep apnea SOB (shortness of breath) Thyroid disease Thyroid disease Type 2 diabetes mellitus Ventricular tachycardia Wears dentures Wears glasses Home Medications amlodipine 10 mg tablet 10 mg PO DAILY bp 03/31/14 [History Last Taken 12/09/21] aspirin 81 mg chewable tablet 81 mg PO DAILY@0800 heart 03/31/14 [History Last Taken 12/06/21] levothyroxine 112 mcg tablet (Synthroid) 112 mcg PO DAILY thyroid 02/04/19 [Hi story Last Taken 12/09/21] finasteride 5 mg tablet 5 mg PO DAILY prostate 03/22/20 [History Last Taken 12/08/21] losartan 100 mg tablet 100 mg PO 1700 heart 03/22/20 [History Last Taken 12/08/21] metoprolol tartrate 25 mg tablet 25 mg PO DAILY heart 03/22/20 [History Last Taken 12/09/21] warfarin 5 mg tablet 5 mg PO DAILY blood thinner 03/22/20 [History Last Taken 12/04/21] albuterol sulfate 90 mcg/actuation aerosol inhaler 2 puff inhalation PRN PRN Congestion 11/15/21 [History Last Taken Unknown] acetaminophen 500 mg tablet 1,000 mg PO Q8 30 days #180 tabs 12/10/21 [Rx Last Taken 12/13/21] atorvastatin 40 mg tablet 40 mg PO DAILY CHOLESTEROL 12/13/21 [History Last Taken Unknown] dutasteride 0.5 mg capsule 0.5 mg PO DAILY PROSTATE 12/13/21 [History Last Taken Unknown] furosemide 20 mg tablet 20 mg PO DAILY WT GAIN 12/13/21 [History Last Taken Unknown] vit C-vit R-jmqjlf-[id number] capsule 1 cap PO DAILY EYE VITAMIN 12/13/21 [History Last Taken Unknown] nitroglycerin 0.4 mg sublingual tablet 0.4 mg sublingual Q5M PRN Cardiac/Chest Pain #1 TAB 12/16/21 [Rx Last Taken Unknown] oxycodone 5 mg tablet 5 mg PO Q4H PRN PRN Pain Score 4-10 5 days #12 tabs 12/16/21 [Rx Last Taken Unknown] sennosides 8.6 mg-docusate sodium 50 mg tablet (Stool Softener-Stimulant Laxative) 2 tab PO BID PRN PRN Constipation #0 tabs 12/16/21 [Rx Last Taken Unknown] warfarin 5 mg tablet (Jantoven) 5 mg PO DINNER #0 tabs 12/16/21 [Rx Last Taken Unknown] Allergy/AdvReac Type Severity Reaction Status Date / Time celecoxib [From Celebrex] Allergy Hives Verified 12/13/21 17:00 Sulfa (Sulfonamide Allergy Hives Verified 12/13/21 17:00 Antibiotics) Family History Mother Heart disease Lung cancer Myocardial infarction Surgical History History of bilateral carpal tunnel release History of bladder surgery History of cardiac defibrillator placement History of carotid endarterectomy History of implantable cardiac defibrillator (ICD) History of open heart surgery History of total left knee replacement (TKR) Hx of CABG Hx of cardiac cath Hx of cardiac pacemaker Hx of colonoscopy Hx of mitral valve replacement Hx of prostate biopsy Social History Smoking Status: Former smoker second hand exposure: No alcohol intake: never substance use type: does not use caffeine: Yes what type of physical activity do you participate in: none frequency: does not exercise ROS ROS ED Constitutional Constitutional ED: Reports chills and subjective; Denies fever(s) Eyes Eyes: Denies blurry vision or change in vision ENT ENT ED: Reports rhinorrhea; Denies sore throat Cardiovascular Cardiovascular: Denies chest pain or palpitations Respiratory/Chest Respiratory/Chest: Reports cough and dyspnea Gastrointestinal Gastrointestinal: Denies nausea or vomiting Genitourinary Genitourinary ED: Denies dysuria or hematuria Musculoskeletal Musculoskeletal: Denies back pain or neck pain Integumentary Denies abscess or rash Neurologic Neurologic: Denies headache(s) or weakness Allergic/Immunologic Allergic/Immunologic ED: Denies mouth swelling or urticaria EXAM Physical Exam Const Vital Signs: 07/25/22 23:53 07/26/22 00:00 07/26/22 00:02 Temperature 102.2 F H Temperature Source Temporal Pulse Rate 86 60 Respiratory Rate 21 H 18 Respiratory Effort Short of Breath Respiratory Depth Respiratory Pattern Blood Pressure 157/67 H Blood Pressure Mean 97 Pulse Ox 97 95 Oxygen Delivery Method Room Air Room Air Room Air 07/26/22 01:18 07/26/22 01:18 Temperature Temperature Source Pulse Rate 60 Respiratory Rate 16 20 H Respiratory Effort Normal Non-Labored Short of Breath Respiratory Depth Normal Respiratory Pattern Normal Normal Blood Pressure Blood Pressure Mean Pulse Ox 94 Oxygen Delivery Method Room Air Positive well nourished, well developed and obese General Appearance ED: well developed and NAD Nutritional Appearance: obese HEENT Reports moist mucous membranes Neck supple and no JVD Resp normal respiratory effort Auscultation: diminished lung sounds Cardio regular rate and regular rhythm GI normal to inspection, nondistended, normoactive bowel sounds and non-tender Palpation: soft Extremity normal to inspection General Extremety ED: Negative for edema or tenderness General Extremity: Negative for edema Neuro oriented x3, CN's II-XII intact bilaterally and no sensory deficits noted Sensorium / Orientation: alert Motor Exam: strength 5/5 throughout Psych mental status grossly normal Skin no rashes or lesions noted MDM MDM MDM Narrative Medical decision making narrative: Differential diagnosis includes pneumonia, COVID-19 infection, influenza infection, viral infection, cardiac dysrhythmia, cardiac ischemia, and congestive heart failure. EKG will be obtained to assess for cardiac dysrhythmia and cardiac ischemia. CBC will be obtained to assess for leukocytosis and anemia. Basic metabolic profile will be obtained to assess for renal function and electrolyte abnormality. High-sensitivity troponin will be obtained to assess for cardiac ischemia. BNP will be obtained to assess for congestive heart failure. Chest x-ray will be obtained to assess for pneumonia and congestive heart failure. COVID-19 rapid antigen will be obtained to assess for COVID-19 infection. Influenza A and influenza B antigens will be obtained to assess for influenza infection. History & Record Review Additional record(s) reviewed:: Prior labs Lab Data Attestation: I reviewed the patient's lab results. Lab results narrative: CBC was reviewed. There is a slight leukocytosis of 12.0. There is also mild anemia with a hemoglobin of 10.2 and hematocrit 32.1. These were unchanged compared to previous results. Basic metabolic profile was reviewed and was essentially within normal limits. High-sensitivity troponin was normal at 24. BNP was 377.8. This is also consistent with prior results. COVID-19 rapid antigen was reviewed and was negative. Influenza A and influenza B rapid antigens were reviewed and were negative. Labs: Laboratory Results - last 24 hr 07/26/22 07/26/22 07/26/22 01:33 01:33 01:33 WBC 12.0 H RBC 3.52 L Hgb 10.2 L Hct 32.1 L MCV 91.2 MCH 29.0 MCHC 31.8 L RDW Std Deviation 47.9 H RDW Coeff of Tobi 14.3 Plt Count 222 MPV 9.5 Immature Gran % (Auto) 0.700 Neut % (Auto) 86.0 H Lymph % (Auto) 3.9 L [place] % (Auto) 8.3 Eos % (Auto) 0.8 Baso % (Auto) 0.3 Absolute Neuts (auto) 10.3 H Absolute Lymphs (auto) 0.47 L Nucleated RBC % 0 Differential Comment COMMENT Sodium 136 Potassium 4.4 Chloride 106 Carbon Dioxide 23.0 Anion Gap 7 BUN 20 H Creatinine 1.03 Estim Creat Clear Calc 51.62 Est GFR (MDRD) Af Amer 89 Est GFR (MDRD) Non-Af 74 BUN/Creatinine Ratio 19.4 Glucose 178 H Calcium 8.7 Troponin I High Sens 24 B-Natriuretic Peptide 377.8 H Radiography Diagnostic Testing: Clinical Impression(s) from Imaging Studies Chest X-Ray 07/26/22 01:08 IMPRESSION: No acute findings. Mild interstitial and vascular prominence within both lungs is similar to prior. Electronically Signed: Scooby Siu MD at 2:25 EDT , PA and lateral chest x-ray was obtained. There are 2 views. On my independent interpretation, there is no acute findings. There is no acute infiltrate or effusion. Radiologist also interpreted the x-rays and noted some mild interstitial vascular congestion similar to previous chest x-ray. EKG Initial EKG: Attestation: I personally reviewed and interpreted this EKG as follows: Interpretation: No Acute Injury Pattern, Paced (60) and LBBB Comments: ED KG was obtained. On my interpretation, it shows a ventricular paced rhythm with a rate of 60. QRS interval was 132 ms. QTc interval was 426 ms. There is a left bundle branch block pattern noted. There are no acute ST or T wave changes noted. Prior EKG tracings: available for review Prior: Unchanged (12/14/2021) Treatment and Re-Evaluation :: Patient was given a DuoNeb aerosol here. Patient was dosed with Tylenol. Patient was given a dose of Zofran. Patient was advised of the findings. Patient was instructed to continue Tylenol and ibuprofen as needed for any fevers or chills. Patient was instructed to follow-up with his primary care physician in 5 to 7 days. Patient understood and was agreeable with the plan. All questions were answered. Discharge Plan Triage Chief Complaint: Cold Sx ED Provider: Cal Barnett Dx/Rx/DC Orders Clinical Impression: Viral upper respiratory infection, Type 2 diabetes mellitus Instructions: ED URI, Viral, No Abx (Adult) Prescriptions: No Action levothyroxine [Synthroid] 112 mcg tablet 112 mcg PO DAILY amlodipine 10 MG tablet 10 mg PO DAILY aspirin 81 MG tablet,chewable 81 mg PO DAILY@0800 Label Comments: stop 5 days preop finasteride 5 MG tablet 5 mg PO DAILY warfarin 5 MG tablet 5 mg PO DAILY Label Comments: LAST DOSE 12/03/21 metoprolol tartrate 25 MG tablet 25 mg PO DAILY losartan 100 MG tablet 100 mg PO 1700 albuterol sulfate 90 mcg/actuation HFA aerosol inhaler 2 puff INHALATION PRN PRN (Reason: Congestion) acetaminophen 500 mg Tablet 1,000 mg PO Q8 30 Days Qty: 180 0RF atorvastatin 40 mg tablet 40 mg PO DAILY furosemide 20 mg tablet 20 mg PO DAILY Label Comments: take 1 tablet by mouth once daily and if needed for WEIGHT GAIN OR EDEMA vit C-vit [id number] Capsule 1 cap PO DAILY dutasteride 0.5 mg Capsule 0.5 mg PO DAILY nitroglycerin 0.4 mg Tablet, Sublingual 0.4 mg sublingual Q5M PRN (Reason: Cardiac/Chest Pain) Qty: 1 0RF oxycodone 5 mg Tablet 5 mg PO Q4H PRN PRN (Reason: Pain Score 4-10) 5 Days Qty: 12 0RF sennosides-docusate sodium [Stool Softener-Stimulant Laxat] 8.6-50 mg Tablet 2 tab PO BID PRN PRN (Reason: Constipation) Qty: 0 0RF warfarin [Jantoven] 5 mg Tablet 5 mg PO DINNER Qty: 0 0RF Rx Instructions: start on 12/16/21 Primary Care Provider: RICH WHITEHEAD Referrals: RICH WHITEHEAD MD [Primary Care Provider] - 5-7 Days Disposition Disposition: Home, Self Care
--- NOTE | 2022-07-26 01:08 | EKG12_ITS ---
Test Reason : DYSRHYTHMIA Blood Pressure : / mmHG Vent. Rate : 060 BPM Atrial Rate : 220 BPM P-R Int : 000 ms QRS Dur : 132 ms QT Int : 426 ms P-R-T Axes : 000 268 121 degrees QTc Int : 426 ms Ventricular-paced rhythm Biventricular pacemaker detected Abnormal ECG Confirmed by CLIFF FROST, DIO ([id number]), editor city [place] ([id number]) on 07/29/2022 8:16:08 AM Referred By: CHINEDU Confirmed By:DIO CORONADO MD
--- NOTE | 2022-07-26 01:08 | RAD_ITS ---
STUDY: X-RAY CHEST REASON FOR EXAM: Male, 82 years old. Cough and fever. Shortness of breath. TECHNIQUE: AP COMPARISON: 12/13/2021 CXR FINDINGS: Mild interstitial and vascular prominence within both lungs is similar to prior. No apparent consolidation, pneumothorax or pleural effusion. Cardiac silhouette, hilar and mediastinal contours with no acute findings. Mild cardiomegaly. Previous sternotomy. Implanted cardiac device remains in place. Atherosclerosis of the thoracic aorta. Degenerative osseous changes with no acute osseous abnormality. RAD/Chest PA and Lateral IMPRESSION: No acute findings. Mild interstitial and vascular prominence within both lungs is similar to prior. Electronically Signed: Scooby Siu MD at 2:25 EDT Reading Location ID and State: [facility] / [place] Tel , Service support ,
[2022-07-26 01:18] VITALS: PULSE 60; RESP 16; RESP 20; O2SAT 94
[2022-07-26] MEDS: Ipratropium/Albuterol Sulfate 3 ML AMPUL.NEB INHALATION (01:18)
[2022-07-26] MEDS: Acetaminophen 500 MG Tablet 1000 MG PO (01:36)
[2022-07-26] MEDS: Ondansetron 4 MG/2 ML Vial IV (01:36)
[2022-07-26 01:38] LABS: Absolute Lymphocyte Count 0.47 X10^3/uL (0.83-4.51); Absolute Neutrophil Count 10.3 X10^3/uL (2.0-7.7); Basophil# 0.03 X10^3/uL; Basophil% 0.3 % (0-1); Eosinophil# 0.09 X10^3/uL; Eosinophils% 0.8 % (0-5); Hematocrit 32.1 % (40-54); Hemoglobin 10.2 g/dL (13.0-16.5); Lymphocyte # 0.47 X10^3/ul (0.83-4.51); Lymphocyte % 3.9 % (19-41); Mean Corp Hgb Conc 31.8 g/dL (32-36); Mean Corpuscular Volume 91.2 fL (80-94); Mean Platelet Vol. 9.5 fl (6.2-12.0); Monocyte# 0.99 X10^3/uL; Monocyte% 8.3 % (0-10); NRBC Flagged by Analyzer 0 % (0-5); Neutrophil # 10.31 X10^3/uL (2.7-7.7); POSITIVE DIFFERENTIAL YES; Platelet Count 222 K/mm3 (150-450); RBC Distribution Width CV 14.3 % (11.6-14.6); RBC Distribution Width SD 47.9 fl (35.1-43.9); Red Blood Count 3.52 M/mm3 (4.6-6.2)
[2022-07-26 01:40] LABS: Differential Indicated SCAN CRITERIA MET
[2022-07-26 01:54] LABS: BNP,B-Type NATRIURETIC PEPTIDE 377.8 pg/mL (0-100)
[2022-07-26 01:56] LABS: Anion Gap 7 (5-15); BUN 20 mg/dL (7-18); BUN/Creat Ratio 19.4 RATIO (10-20); Calcium,Total 8.7 mg/dL (8.5-10.1); Chloride 106 mmol/L (98-107); Creatinine, Serum 1.03 mg/dL (0.70-1.30); EST Glomerular Filtration Rate 74 mL/min (>60); Est Glom Filt Rate - Afr Amer 89 mL/min (>60); Estimated Creatinine Clearance 51.62 ml/min; Glucose 178 mg/dL (74-106); Potassium 4.4 mmol/L (3.5-5.1); Sodium Level 136 mmol/L (136-145); Troponin-I HS 24 pg/mL (3.0-78.0)
[2022-07-26 06:09] VITALS: O2SAT 96
--- NOTE | 2022-07-26 06:09 | NURSING ---
is aware patient needs ride home
== END 2022-07-26 06:13 | disposition home or self-care (01) ==
PROVIDERS: Emergency Provider Emergency Medicine; PCP Family Medicine; Visit Provider Emergency Medicine
DX: J06.9 Acute upper respiratory infection, unspecified (principal); I50.9 Heart failure, unspecified; E78.00 Pure hypercholesterolemia, unspecified; I25.10 Atherosclerotic heart disease of native coronary artery without angina pectoris; I25.2 Old myocardial infarction; Z20.822 Contact with and (suspected) exposure to COVID-19; Z95.1 Presence of aortocoronary bypass graft; Z95.810 Presence of automatic (implantable) cardiac defibrillator; Z79.01 Long term (current) use of anticoagulants; Z79.82 Long term (current) use of aspirin; Z79.899 Other long term (current) drug therapy; Z87.891 Personal history of nicotine dependence
CPT/HCPCS: 71046; 80048; 83880; 84484; 85025; 87428; 93005; 94640; 96374; 99252; 99285; A4216; G0463; J2405

== ENCOUNTER → 2022-08-26 | Outpatient (CLI) | payer MEDICARE, BC, SELFPAY ==
--- NOTE | 2022-08-26 | CYSPIN_PTH ---
PATIENT: JLUIS ROUSE LOC: [facility] U#:[id number] AGE/SX: 82/M ROOM: RE08/26/[address]: Dr. Marlon Todd MD : [id number] BED: DIS: 08/26/2022 SPEC #: [id number] RECD: 08/26/22 15:00 STATUS: YAMILET CONWAY #: [id number] EMEKA: 08/26/22 00:[address]: Marlon Todd DEPT: CYTOLOGY RECD BY: Juan J Hernandez ENTERED: 08/27/22 07:51 SP TYPE: CYSPIN FL OTHR DR: RICH WHITEHEAD MD Tissues: Urine Procedures: Pap Stain (control) Special Stain Group II Cytospin Fluid HEADER OPERATION: Not noted PRE-OP DIAGNOSIS: Bladder cancer TISSUE SUBMITTED: Urine for cytology DIAGNOSIS CYTOLOGY Urine for cytology (cytospin): Atypical urothelial cells present (Lyn System Category III). See comment. AM:maciej 08/27/2022 COMMENT The Lyn System for urine cytology diagnostic categorization was used in the evaluation of this case. CYTOLOGY STUDY Slides are reviewed. CYTOLOGY GROSS Received is 30 ml of yellow cloudy fluid labeled with the patient's name and and designated per the requisition as urine. Submitted for cytology preparation. / maciej 08/26/2022 TC:? CPT: 16760
[2022-08-26 18:09] LABS: Cytology, Body Fluid / CSF SEE PATHOLOGY REPORT
== END | disposition home or self-care (01) ==
PROVIDERS: PCP Family Medicine; Visit Provider Urology
DX: C67.9 Malignant neoplasm of bladder, unspecified (principal)
CPT/HCPCS: 88108; 88313